=== PATIENT | male | born 1975 | race Caucasian/White ===

== ENCOUNTER 2022-08-01 11:51 | Inpatient (IN) | payer OTHER, SELFPAY ==
--- NOTE | 2022-08-01 | ECG_ITS ---
Test Reason : MED CLEARANCE Blood Pressure : / mmHG Vent. Rate : 063 BPM Atrial Rate : 063 BPM P-R Int : 122 ms QRS Dur : 088 ms QT Int : 498 ms P-R-T Axes : -12 077 078 degrees QTc Int : 509 ms Normal sinus rhythm Nonspecific ST abnormality Prolonged QT Abnormal ECG No previous ECGs available Referred By: Marleny White Electronically Signed By:CEM MENDOZA
--- NOTE | 2022-08-01 11:56 | ED_ITS ---
HPI - Psych General Chief Complaint: Psychiatric Symptoms Stated Complaint: SI Source: patient Mode of arrival: EMS Limitations: no limitations History of Present Illness HPI Narrative: 47 yo male with hx of drug abuse, substance abuse here with c/o SI with plan to overdose. He is from [place] has not been here before. Dosed with his methadone this AM complaint: suicidal ideation, feels depressed and substance abuse Onset (ago): week(s) Duration: getting worse History of same: Yes Relieving factors: none Exacerbating factors: drug use Context: recent alcohol abuse, recent drug abuse and significant life stressor Associated psychiatric symptoms: depression and suicidal ideation Associated symptoms: denies other symptoms Treatments prior to arrival: placed on mental health hold If self harm: admits thoughts of self harm, has plan and has acted on plan Related Data Allergies Allergy/AdvReac Type Severity Reaction Status Date / Time carbamazepine Allergy Unknown Unknown Verified 08/01/22 12:18 hydrocodone Allergy Unknown Unknown Verified 08/01/22 12:18 morphine Allergy Unknown Unknown Verified 08/01/22 12:18 tegretol Allergy Unknown Unknown Uncoded 08/01/22 12:18 Review of Systems Review of Systems: Constitutional : No Fever, No Chills ENT/Mouth : No Ear Pain, No Nasal Congestion, No sore throat Eyes: No Eye Pain, No Swelling, No Redness Cardiovascular : No Chest Pain, No SOB Respiratory : No Cough, No Sputum, No Dyspnea Gastrointestinal : No Nausea, No Vomiting, No Diarrhea, No Hematochezia, No Melena Genitourinary : No Dysuria, No Urinary Frequency, No Hematuria Musculoskeletal : No Myalgias Skin : No Skin Lesions, No rash Neuro : No Weakness, No Numbness, No Paresthesias, No Dizziness, No Headache Psych : positive Anxiety, positive Depression, positive SI no HI Heme/Lymph: No Lymphadenopathy Endocrine : No Polyuria, No Polydipsia All other systems reviewed and are negative [facility] Past Medical History Attestation statement: The following information was validated with the patient. Medical History Active substance abuse Alcohol abuse Social History Social History (Updated 08/01/22 @ 12:37 by Marleny White DO) Alcohol intake: current Alcohol intake frequency: 0-2 drinks per day Patient Tobacco Use Status: Never used Tobacco Use of substances other than those prescribed or required for medical reasons: Yes Substance Use Type: Crack/Cocaine and Heroin Substance Use Frequency: Daily Last Used Substance: Just Prior to Admission Any prior treatment program specific to substance use: Yes Physical Exam Vital Signs: Vital Signs: BMI result Body Mass Index 25.8 Appearance: Alert. Oriented X3. No acute distress. Eyes: Pupils equal, round and reactive to light. ENT: Pharynx normal. on scalp scaled over rash on occiput area and parietal a amtt no signs of cellulitis at this time, appears fungal Neck: Normal inspection. Neck supple. CVS: Normal heart rate and rhythm. Pulses normal. Respiratory: No respiratory distress. Breath sounds normal. Abdomen: Soft and non-tender. Skin: Skin warm and dry. Normal skin color. Normal skin turgor. Extremities: No lower extremity edema. No calf ttp Neuro: Oriented X 3. No motor deficit. No sensory deficit. CN 2-12 intact Course Course Course Narrative: Physician observation started at 330pm. Patient placed in physician observation because the patient needed more time for placement. At the time observation was started the patient's vitals were stable, patient is alert and oriented but slightly agitated, Neuro: nonfocal, CV RRR, Lungs clear MDM - Psych MDM Narrative Medical decision making narrative: 47 yo male with hx of ETOH and substance abuse here on section 12 with SI will obtain labs and BHN consult, nicotine patch, PRN ativan. Clotrimazole for suspected tinea capitis. Lab Data Result diagrams: 08/01/22 14:01 08/01/22 14:01 Labs: Lab Results 08/01/22 08/01/22 08/01/22 Range/Units 12:50 14:01 14:01 WBC 5.3 (4.8-10.8) X10*3/uL RBC 4.17 L (4.60-5.80) X10*6/uL Hgb 13.7 L (14.0-18.0) g/dl Hct 38.7 L (42.0-52.0) % MCV 92.8 (80.0-98.0) fL MCH 32.9 (27.0-33.0) pg MCHC 35.4 (31.0-36.0) g/dl RDW 13.0 (11.0-16.0) % Plt Count 180 (160-400) X10*3/uL MPV Not Reportable Immature Gran % (Auto) Cancelled Neut % (Auto) Cancelled Lymph % (Auto) Cancelled [place] % (Auto) Cancelled Eos % (Auto) Cancelled Baso % (Auto) Cancelled Lymph # (Auto) Cancelled [place] # (Auto) Cancelled Eos # (Auto) Cancelled Baso # (Auto) Cancelled Abs Immat Gran (auto) Cancelled Absolute Neuts (auto) Cancelled Absolute Nucleated RBC 0.000 (0.0-0.012) X10*3/uL Nucleated RBC % (auto) 0.0 (0.0-0.2) /100WBC Neutrophils % (Manual) 70 (45-73) % Band Neutrophils % 1 L (3-5) % Lymphocytes % (Manual) 27 (20-40) % Monocytes % (Manual) 1 L (2-11) % Eosinophils % (Manual) 1 (0-4) % Abs Neuts (Manual) 3.8 (2.0-8.3) X10*3/uL Platelet Estimate NORMAL (NORMAL) Plt Morphology Comment NORMAL RBC Morphology NORMAL Sodium 138 (135-145) mmol/L Potassium 3.9 (3.3-5.1) mmol/L Chloride 98 (96-108) mmol/L Carbon Dioxide 25 (22-29) mmol/L Anion Gap 19 (12-20) BUN 12 (9-16) mg/dL Creatinine 0.78 (0.5-1.4) mg/dL Estim Creat Clear Calc 114.5 Estimated GFR > 60 Random Glucose 135 H (60-115) mg/dL Calcium 9.2 (8.4-10.2) mg/dL Magnesium 1.7 (1.6-2.6) mg/dL Total Bilirubin 1.0 (0.0-1.0) mg/dL Direct Bilirubin 0.4 (0.0-0.5) mg/dL AST 135 H (5-37) U/L ALT 103 H (0-40) U/L Alkaline Phosphatase 87 (39-117) U/L Total Protein 7.4 (6.5-8.0) g/dL Albumin 4.2 (3.5-5.0) g/dL Ethyl Alcohol mg/dL COVID-19 ([facility]) Negative (Negative) COVID-19 Clin Com See Note 08/01/22 Range/Units 14:01 WBC (4.8-10.8) X10*3/uL RBC (4.60-5.80) X10*6/uL Hgb (14.0-18.0) g/dl Hct (42.0-52.0) % MCV (80.0-98.0) fL MCH (27.0-33.0) pg MCHC (31.0-36.0) g/dl RDW (11.0-16.0) % Plt Count (160-400) X10*3/uL MPV Immature Gran % (Auto) Neut % (Auto) Lymph % (Auto) [place] % (Auto) Eos % (Auto) Baso % (Auto) Lymph # (Auto) [place] # (Auto) Eos # (Auto) Baso # (Auto) Abs Immat Gran (auto) Absolute Neuts (auto) Absolute Nucleated RBC (0.0-0.012) X10*3/uL Nucleated RBC % (auto) (0.0-0.2) /100WBC Neutrophils % (Manual) (45-73) % Band Neutrophils % (3-5) % Lymphocytes % (Manual) (20-40) % Monocytes % (Manual) (2-11) % Eosinophils % (Manual) (0-4) % Abs Neuts (Manual) (2.0-8.3) X10*3/uL Platelet Estimate (NORMAL) Plt Morphology Comment RBC Morphology Sodium (135-145) mmol/L Potassium (3.3-5.1) mmol/L Chloride (96-108) mmol/L Carbon Dioxide (22-29) mmol/L Anion Gap (12-20) BUN (9-16) mg/dL Creatinine (0.5-1.4) mg/dL Estim Creat Clear Calc Estimated GFR Random Glucose (60-115) mg/dL Calcium (8.4-10.2) mg/dL Magnesium (1.6-2.6) mg/dL Total Bilirubin (0.0-1.0) mg/dL Direct Bilirubin (0.0-0.5) mg/dL AST (5-37) U/L ALT (0-40) U/L Alkaline Phosphatase (39-117) U/L Total Protein (6.5-8.0) g/dL Albumin (3.5-5.0) g/dL Ethyl Alcohol 24 mg/dL COVID-19 ([facility]) (Negative) COVID-19 Clin Com Discharge Plan Discharge Clinical Impression: Suicidal ideation, Polysubstance abuse, Alcohol abuse, Tinea capitis Patient Disposition: Still a Patient
[2022-08-01 12:18] VITALS: BP 120/60; PULSE 100; O2SAT 98; BMI 25.8
[2022-08-01] MEDS: LORazepam 1 MG TABLET 2 MG PO ×4 (12:31→20:36)
[2022-08-01] MEDS: Thiamine HCL 100 MG TABLET PO (12:31)
[2022-08-01] MEDS: Nicotine 21 MG PATCH.TD24 TRANSDERMA (12:31)
[2022-08-01 13:15] LABS: COVID-19 Test Negative (Negative); IDNOW Serial# 9DB6401D
[2022-08-01 14:10] LABS: Hematocrit 38.7 % (42.0-52.0); Hemoglobin 13.7 g/dl (14.0-18.0); Mean Corpuscular HGB Conc 35.4 g/dl (31.0-36.0); Mean Corpuscular Hemoglobin 32.9 pg (27.0-33.0); Mean Corpuscular Volume 92.8 fL (80.0-98.0); PLT CLUMP 1; Red Blood Count 4.17 X10*6/uL (4.60-5.80)
[2022-08-01 14:35] LABS: Ethanol 24 mg/dL
[2022-08-01 14:40] LABS: Alanine Aminotransferase 103 U/L (0-40); Albumin Level 4.2 g/dL (3.5-5.0); Alkaline Phosphatase 87 U/L (39-117); Anion Gap 19 (12-20); Aspartate Amino Transferase 135 U/L (5-37); Bilirubin Direct 0.4 mg/dL (0.0-0.5); Blood Urea Nitrogen 12 mg/dL (9-16); Calcium 9.2 mg/dL (8.4-10.2); Carbon Dioxide 25 mmol/L (22-29); Chloride 98 mmol/L (96-108); Creatinine Clr Calc Pharmacy 114.5; Estimated Glomerular Filt Rate > 60; Glucose Random 135 mg/dL (60-115); Magnesium 1.7 mg/dL (1.6-2.6); Potassium 3.9 mmol/L (3.3-5.1); Sodium 138 mmol/L (135-145); Total Protein 7.4 g/dL (6.5-8.0)
[2022-08-01 14:57] LABS: Band Neutrophils Percent 1 % (3-5); Eosinophils Percent Manual 1 % (0-4); Lymphocytes Percent Manual 27 % (20-40); Monocytes Percent Manual 1 % (2-11); Neutrophils Percent Manual 70 % (45-73)
[2022-08-01 14:59] LABS: Platelet Count 180 X10*3/uL (160-400); White Blood Count 5.3 X10*3/uL (4.8-10.8)
[2022-08-01 15:02] LABS: Platelet Estimate NORMAL (NORMAL); Platelet Morphology Comment NORMAL; RBC Morphology NORMAL
[2022-08-01 15:10] LABS: Neutrophils Absolute Manual 3.8 X10*3/uL (2.0-8.3)
--- OUTSIDE RECORDS SUMMARY | 2022-08-01 16:10 | XMS_ITS | Continuity of Care Document ---
:1975 Author Organization [facility] Address [address] [place] [address]- Care Team Providers Name Role Phone Not on Staff, PCP Primary Care Physician Unavailable Encounter [facility] Date(s): 11/10/21 - 11/14/21 [facility] [address], [place] [address] Discharge Disposition: A-D/C Home Attending Physician: Nash Torres MD Admitting Physician: Tika Corley MD Referring Physician: Tika Corley MD Allergies, Adverse Reactions, Alerts Substance Reaction Severity Status morphine Active Vicodin Active TEGretol Active Immunizations Given and Recorded Vaccine Date Status Refusal Reason tetanus/diphtheria/pertussis, acel(Tdap) 12/28/18 Given Not Given Vaccine Date Status Refusal Reason influenza virus vaccine, inactivated 11/02/21 Not Given Permanently Refused influenza virus vaccine, inactivated 07/16/18 Not Given Patient Refuses pneumococcal 23-valent vaccine 07/16/18 Not Given P atient Refuses Medications folic acid 1 mg oral tablet 1 mg, 1, tablet, By Mouth, Daily, # 30 tablet, Refills 0, Tot. Refills 0, Maintenance, 11/14/21 12:03:00 EST, Route to Pharmacy Electronically, [facility], Partial fill upon patient request if the prescription is for a schedule II opioid... Start Date: 11/14/21 Stop Date: 12/14/21 Status: Orderedgabapentin 300 mg oral capsule 300 mg, Capsule, By Mouth, 11/14/21 9:00:00 EST Start Date: 11/14/21 Stop Date: 11/14/21 Status: Completedgabapentin 300 mg oral capsule 300 mg, 1, capsule, By Mouth, 3 times a day, # 90 capsule, Refills 0, Tot. Refills 0, Maintenance, 11/14/21 11:53:00 EST, Route to Pharmacy Electronically, [facility], Partial fill upon patient request if the prescription is for a schedu... Start Date: 11/14/21 Stop Date: 12/14/21 Status: Orderedibuprofen 400 mg oral tablet 400 mg, 1, tablet, By Mouth, 3 times a day, PRN, Refills 0, Maintenance, Pain , Mild, 11/10/21 8:59:00 EST, Partial fill upon patient request if the prescription is for a schedule II opioid drug. Start Date: 11/10/21 Status: OrderedMagic Mouth Wash 15 mL, Swish and Spit, 3 times a day, 0 Refills, Maintenance, 11/10/21 8:59:00 EST, Suspension, Partial fill upon patient request if the prescription is for a schedule II opioid drug. Start Date: 11/10/21 Status: Orderedmethadone 10 mg oral tablet 170 mg, Tablet, By Mouth, 11/14/21 9:00:00 EST Start Date: 11/14/21 Stop Date: 11/14/21 Status: Completedmethadone 10 mg/5 mL oral solution 85 mL = 170 mg, By Mouth, Daily, 0 Refills, Maintenance, 07/15/20 9:02:00 EDT, Solution, Partial fill upon patient request Start Date: 07/15/20 Status: OrderedMiraLax Powder 1 pack/packet = 17 Gm, By Mouth, Daily, PRN Constipation, 0 Refills, Maintenance, 11/08/21 11:25:00 EST, Powder, Partial fill upon patient request if the prescription is for a schedule II opioid drug. Start Date: 11/08/21 Status: OrderedMultivit Therapeutic/Minerals Tablet 1 tablet, By Mouth, Daily, 0 Refills, Maintenance, 11/08/21 11:25:00 EST, Tablet, Partial fill upon patient request if the prescription is for a schedule II opioid drug. Start Date: 11/08/21 Status: OrderedNicotine = 21 mg, Topically, Every 24 hours, 0 Refills, Maintenance, 11/10/21 8:59:00 EST, Patch, Partial fill upon patient request if the prescription is for a schedule II opioid drug. Start Date: 11/10/21 Status: OrderedOrajel 10% Gel 1, applicator, Topically, Every 4 hours, PRN, Refills 0, Maintenance, Pain , Mild, 11/08/21 11:24:00EST, Gel, Partial fill upon patient request if the prescription is for a schedule II opioid drug. Start Date: 11/08/21 Status: OrderedProtonix 40 mg oral delayed release tablet = 40 mg, By Mouth, Daily, 0 Refills, Maintenance, 11/08/21 11:24:00 EST, EC Tablet Start Date: 11/08/21 Status: OrderedPyridoxine Tablet 50 mg, By Mouth, Daily, Refills 0, Maintenance, 11/08/21 11:25:00 EST, Partial fill upon patient request if the prescription is for a schedule II opioid drug. Start Date: 11/08/21 Status: OrderedQUEtiapine 100 mg oral tablet 100 mg, 1, tablet, By Mouth, Daily at bedtime, PRN, # 30 tablet, Refills 0, Tot. Refills 0, Maintenance, Anxiety, 11/14/21 11:53:00 EST, Route to Pharmacy Electronically, [facility], Partial fill upon patient request if the prescription... Start Date: 11/14/21 Stop Date: 12/14/21 Status: Orderedsertraline 100 mg oral tablet 1 tablet = 100 mg, By Mouth, Daily, # 30 tablet, 0 Refills, Maintenance, 11/14/21 11:52:00 EST, Tablet, [facility], Partial fill upon patient request if the prescription is for a scheduleII opioid drug., 179, cm, 11/10/21 6:40:00 EST, H... Start Date: 11/14/21 Stop Date: 12/14/21 Status: Orderedthiamine 100 mg oral tablet 100 mg, 1, tablet, By Mouth, Daily, for 30 days, # 30 tablet, Refills 0, Tot. Refills 0, Acute 12/14/21 12:03:00 EST, 11/14/21 12:03:00 EST, Route to Pharmacy Electronically, [facility], Partial fill upon patient request if the prescript... Start Date: 11/14/21 Stop Date: 12/14/21 Status: Ordered Problem List Condition Effective Dates Status Health Status Informant Alcohol abuse(Confirmed) Active Coagulopathy(Confirmed) Active Cerebral edema(Confirmed) Active Transaminitis(Confirmed) Active GI bleed(Confirmed) Active Hepatic encephalopathy(Confirmed) Active Hypertension(Confirmed) Active OSVALDO (acute kidney injury)(Confirmed) Active Opiate abuse, continuous(Confirmed) Active Pneumonia(Confirmed) Active Results Radiology Reports Exam Date Time Procedure Performing Provider Status 11/11/21 10:03 AM Chest Portable Erika Hanley; Auth (Verified) Notes:(Chest Portable) Reason For Exam: CoughRESULT: Chest Portable Chest Portable Reason: Cough; Clinical Question(s): Pneumonia COMPARISON: 11/04/2021 FINDINGS: LINES AND TUBES: None. LUNGS AND PLEURA: Clear lungs. Normal pulmonary vascularity. No pleural effusion. No pneumothorax. HEART, MEDIASTINUM AND SHAVON: Heart is normal in size. Normal upper mediastinal and hilar contour. BONES AND SOFT TISSUES: No acute abnormality. IMPRESSION: No acute abnormality. WSN: [id number] Ordering Physician: Nash Torres Dictated By: Debbi Cooper MD, I Dictated Date/Time: 11/11/21 1:57 pm Reviewed By: Debbi Cooper MD, I Signed By: Debbi Cooper MD, I Signed Date/Time: 11/11/21 1:57 pm Transcribed By: ANDREAS Transcribed Date/Time: 11/11/21 1:57 pm Vital Signs Most recent to oldest 1 2 3 [Reference Range]: Oxygen Saturation [94-100 %] 98 % 97 % 96 % (11/14/21 8:00 AM) (11/13/21 12:00 PM) (11/12/21 8: 14 PM) Pulse Rate [55-90 bpm] 56 bpm 55 bpm 55 bpm (11/14/21 8:00 AM) (11/13/21 12:00 PM) (11/12/21 8: 14 PM) Blood Pressure [90-138/55-84 177/69 mm Hg 127/84 mm Hg 138 /80 mm Hg mm Hg] *H* (11/13/21 12:00 PM) (11/12/21 8:14 PM) (11/14/21 8:00 AM) Respiratory Rate [16-30 1 br/min 1 br/min 18 br/mi n br/min] *L* *L* (11/14/21 9:22 AM ) (11/14/21 10:22 AM) (11/14/21 10:20 AM) Temperature [96.8-100.4 DegF] 97.4 DegF 97.5 DegF 97 .5 DegF (11/14/21 8:00 AM) (11/13/21 12:00 PM) (11/12/21 8: 14 PM) Mode of Delivery (Oxygen) Room air Room air Room a ir (11/14/21 8:00 AM) (11/13/21 12:00 PM) (11/12/21 8: 14 PM) Blood pressure sites Arm, right Arm, right Arm, right (11/14/21 8:00 AM) (11/13/21 12:00 PM) (11/12/21 8: 14 PM) Temperature Route Oral Oral Oral (11/14/21 8:00 AM) (11/13/21 12:00 PM) (11/12/21 8: 14 PM) Social History Social History Type Response Tobacco Use: 4 or less cigarettes(le ss than 1/4 pack)/day in last 30 days. Interested in cessatio n: No. Yes Sex
--- OUTSIDE RECORDS SUMMARY | 2022-08-01 16:10 | XMS_ITS | Continuity of Care Document ---
:1975 Author Organization [facility] Address [address] [place] [address]- Care Team Providers Name Role Phone Not on Staff, PCP Primary Care Physician Unavailable Encounter [facility] Date(s): 06/12/22 - 06/12/22 [facility] [address] [place] [phone] Encounter Diagnosis Gonorrhea (Final) - 06/12/22 Discharge Disposition: A-D/C Home Attending Physician: Junie Pimentel MD Admitting Physician: Junie Pimentel MD Referring Physician: Not on Staff, Referring MD Allergies, Adverse Reactions, Alerts Substance Reaction [...] 11/14/21 12:03:00 EST, Route to Pharmacy Electronically, [facility], Partial fill upon patient request if the prescription is for a schedule II opioid... Start Date: 11/14/21 Stop Date: 12/14/21 Status: Orderedgabapentin 300 mg oral capsule 300 mg, 1, capsule, By Mouth, 3 times a day, # 90 capsule, Refills 0, Tot. Refills 0, Maintenance, 11/14/21 11:53:00 EST, Route to Pharmacy Electronically, [facility], Partial fill upon patient request [...] drug. Start Date: 11/10/21 Status: Orderedmethadone 10 mg/5 mL oral solution 85 mL [...] 11/14/21 11:53:00 EST, Route to Pharmacy Electronically, [facility], Partial fill upon patient request if the prescription... Start Date: 11/14/21 Stop Date: 12/14/21 Status: Orderedsertraline 100 mg oral tablet 1 tablet = 100 mg, By Mouth, Daily, # 30 tablet, 0 Refills, Maintenance, 11/14/21 11:52:00 EST, Tablet, [facility], Partial fill upon patient request [...] Active Opiate abuse, continuous(Confirmed) Active Pneumonia(Confirmed) Active Vital Signs Most recent to oldest [Reference Range]: 1 2 Height 178 cm (06/12/22 10:25 AM) Weight 78 kg (06/12/22 10:25 AM) Oxygen Saturation [94-100 %] 100 % 100 % (06/12/22 10:18 AM) (06/12/22 10:07 AM) Pulse Rate [55-90 bpm] 61 bpm 66 bpm (06/12/22 10:18 AM) (06/12/22 10:07 AM) Blood Pressure [90-138/55-84 mm Hg] 133/92 mm Hg (06/12/22 10:18 AM) Respiratory Rate [16-30 br/min] 16 br/min (06/12/22 10:18 AM) Temperature [96.8-100.4 DegF] 98.3 DegF (06/12/22 10:18 AM) Mode of Delivery (Oxygen) Room air Room air (06/12/22 10:18 AM) (06/12/22 10:07 AM) Blood pressure sites Arm, right (06/12/22 10:18 AM) Temperature Route Oral (06/12/22 10:18 AM) Dry Weight 78 kg (06/12/22 10:25 AM) Weight Obtained Via Patient/family stated (06/12/22 10:25 AM) Dry Weight Obtained Via Patient/family stated (06/12/22 10:25 AM) Social History Social History Type Response Tobacco Use: 4 or less cigarettes(le ss than 1/4 pack)/day in last 30 days. Interested in cessatio n: No. Yes Sex
--- OUTSIDE RECORDS SUMMARY | 2022-08-01 16:10 | XMS_ITS | Continuity of Care Document ---
:1975 Author Organization [facility] Address [address] [place] [address]- Care Team Providers Name Role Phone Rin Leal MD Primary Care Physician Encounter [facility] NBR [id number] Date(s): 05/31/21 - 06/05/21 [facility] [address] [place] [id number]- Encounter Diagnosis Ankle cellulitis (Final) - 05/31/21 Discharge Disposition: A-D/C Home Attending Physician: Jeanette Whitman MD Admitting Physician: Ulysses Savage MD Referring Physician: Not on Staff, Referring MD Allergies, Adverse Reactions, Alerts Substance Reaction Severity Status morphine Active Vicodin Active TEGretol Active Immunizations Given and Recorded Vaccine Date Status Refusal Reason tetanus/diphtheria/pertussis, acel(Tdap) 12/28/18 Given Not Given Vaccine Date Status Refusal Reason pneumococcal 23-valent vaccine 07/16/18 Not Given P atient Refuses influenza virus vaccine, inactivated 07/16/18 Not Given Patient Refuses Medications Augmentin 875 mg-125 mg oral tablet 1 tablet, By Mouth, Every 12 hours, for 5 days, # 10 tablet, 0 Refills, Acute 06/10/21 9:18:00 EDT, 06/05/21 9:18:00 EDT, Tablet, [facility], Partial fill upon patient request if the prescription is for a schedule II opioid drug., 178, c... Start Date: 06/05/21 Stop Date: 06/10/21 Status: OrderedBactrim DS 800 mg-160 mg oral tablet 1 tablet, By Mouth, Every 12 hours, for 5 days, # 10 tablet, 0 Refills, Acute 06/10/21 9:12:00 EDT, 06/05/21 9:12:00 EDT, Tablet, [facility], Partial fill upon patient request if the prescription is for a schedule II opioid drug., 1 tabl... Start Date: 06/05/21 Stop Date: 06/10/21 Status: OrderedDilaudid 2 mg oral tablet 1 tablet = 2 mg, By Mouth, Every 4 hours, PRN Pain , Severe, # 12 tablet, 0 Refills, Acute 06/06/21 9:09:00 EDT, 06/05/21 9:09:00 EDT, Tablet, [facility], Partial fill upon patient request if the prescription is for a schedule II opioid... Start Date: 06/05/21 Stop Date: 06/06/21 Status: OrderedDilaudid Inj 1 mg, Injection, IV Push Slowly, Every 4 hours, PRN for Pain , Severe, Routine, 05/31/21 21:16:00 EDT Start Date: 05/31/21 Stop Date: 06/05/21 Status: Discontinuedfolic acid 1 mg oral tablet 1 mg, 1, tablet, By Mouth, Daily, # 30 tablet, Refills 0, Tot. Refills 0, Maintenance, 06/05/21 9:08:00 EDT, Route to Pharmacy Electronically, [facility], 178, cm, 06/05/21 4:34:00 EDT, Height, 79, kg, 05/31/21 23:33:00 EDT, Dry Weight Start Date: 06/05/21 Status: Orderedmethadone 10 mg oral tablet 170 mg, Tablet, By Mouth, dose confirmed with [facility] , last dose 05/31, 06/05/21 9:00:00 EDT Start Date: 06/05/21 Stop Date: 06/05/21 Status: Completedmethadone 10 mg/5 mL oral solution 85 mL = 170 mg, By Mouth, Daily, 0 Refills, Maintenance, 07/15/20 9:02:00 EDT, Solution, Partial fill upon patient request Start Date: 07/15/20 Status: Orderedprazosin 1 mg oral capsule 1 mg, 1, capsule, By Mouth, Daily at bedtime, # 30 capsule, Refills 0, Tot. Refills 0, Maintenance, 06/05/21 9:24:00 EDT, Route to Pharmacy Electronically, [facility], Partial fill upon patient request if the prescription is for a schedu... Start Date: 06/05/21 Status: OrderedProtonix 40 mg oral delayed release tablet = 40 mg, By Mouth, 2 times a day, # 60 capsule, 0 Refills, Maintenance, 07/15/20 9:02:00 EDT, EC Tablet, 177.8, cm, 07/15/20 7:45:00 EDT, Height, 75, kg, 07/05/20 9:09:00 EDT, Dry Weight Start Date: 07/15/20 Status: Orderedpyridoxine 50 mg oral tablet 50 mg, 1, tablet, By Mouth, Daily, # 30 tablet, Refills 0, Tot. Refills 0, Acute 06/06/21 9:09:00 EDT, 06/05/21 9:09:00 EDT, Route to Pharmacy Electronically, [facility], Partial fill upon patient request if the prescription is for a rui... Start Date: 06/05/21 Stop Date: 06/06/21 Status: Orderedthiamine 100 mg oral tablet 100 mg, 1, tablet, By Mouth, Daily, # 30 tablet, Refills 0, Tot. Refills 0, Acute 06/06/21 9:09:00 EDT, 06/05/21 9:09:00 EDT, Route to Pharmacy Electronically, [facility], Partial fill upon patient request if the prescription is for a sc... Start Date: 06/05/21 Stop Date: 06/06/21 Status: OrderedZoloft 50 mg oral tablet 1 tablet = 50 mg, By Mouth, Daily, # 30 tablet, 0 Refills, Maintenance, 06/05/21 9:24:00 EDT, Tablet, [facility], Partial fill upon patient request if the prescription is for a schedule II opioid drug., 178, cm, 06/05/21 4:34:00 EDT, Hei... Start Date: 06/05/21 Status: Ordered Problem List Condition Effective Dates Status Health Status Informant Alcohol abuse(Confirmed) Active Coagulopathy(Confirmed) Active Cerebral edema(Confirmed) Active Transaminitis(Confirmed) Active GI bleed(Confirmed) Active Hepatic encephalopathy(Confirmed) Active Hypertension(Confirmed) Active OSVALDO (acute kidney injury)(Confirmed) Active Opiate abuse, continuous(Confirmed) Active Pneumonia(Confirmed) Active Results Orders for Microbiology Reports Name Date Blood Culture 05/31/21 Blood Culture #2 05/31/21 Microbiology Reports TEST:Blood Culture STATUS:Auth (Verified) BODY SITE: SOURCE:Blood COLLECTED DATE/TIME:05/31/21 9:30 PMBlood Culture SPECIMEN DESCRIPTION : BLOOD NO SITE SPECIAL REQUESTS : NONE CULTURE : NO GROWTH 5 DAYS. REPORT STATUS : FINAL 06/05/2021TEST:Blood Culture, Second Order STATUS:Auth (Verified) BODY SITE: SOURCE:Blood COLLECTED DATE/TIME:05/31/21 9:29 PMBlood Culture, Second Order SPECIMEN DESCRIPTION : BLOOD NO SITE SPECIAL REQUESTS : NONE CULTURE : NO GROWTH 5 DAYS. REPORT STATUS : FINAL 06/05/2021adiology Reports Exam Date Time Procedure Performing Provider Status 05/31/21 10:23 PM Foot Min 3 Views Left Ashley Juárez; Auth ( Verified) Notes:(Foot Min 3 Views Left) Reason For Exam: InfectionRESULT: Foot Min 3 Views Left Foot Min 3 Views Left, 3 views Hx of Present Illness: pt c o L foot ankle swelling, reddness, pain x approx 5 days. NKI. denies IVDU at foot. +chills, nausea.; Reason: Infection; Clinical Question(s): Osteomyelitis COMPARISON: None. FINDINGS: No fractures or bone lesions. No osseous erosions to indicate osteomyelitis. No arthritic changes. Normal soft tissues. IMPRESSION: No acute fracture or malalignment. No osseous erosions to indicate osteomyelitis. WSN: [id number] Ordering Physician: Sybil Coreas Dictated By: Jose Roberto Finch MD Dictated Date/Time: 05/31/21 10:45 p Reviewed By: Jose Roberto Finch MD Signed By: Jose Roberto Finch MD Signed Date/Time: 05/31/21 10:45 pm Transcribed By: ANDREAS Transcribed Date/Time: 05/31/21 10:42 pm Vital Signs Most recent to oldest [Reference 1 2 3 Range]: Height 178 cm 178 cm 178 cm (06/05/21 4:34 AM) (06/04/21 8:05 PM) (06/04/21 1:34 P M) Weight 79 kg (05/31/21 11:33 PM) Oxygen Saturation [94-100 %] 97 % 98 % 98 % (06/05/21 4:34 AM) (06/04/21 8:05 PM) (06/04/21 1:34 P M) Pulse Rate [55-90 bpm] 54 bpm 55 bpm 61 bpm *L* (06/04/21 8:05 PM) (06/04/21 1:34 PM ) (06/05/21 4:34 AM) Body Mass Index [18.5-24.99] 24.93 (05/31/21 11:33 PM) Blood Pressure [90-138/55-84 mm 156/73 mm Hg 156/96 mm Hg 157/96 mm Hg Hg] *H* *H* *H* (06/05/21 4:34 AM) (06/04/21 8:05 PM) (06/04/21 1:34 P M) Respiratory Rate [16-30 br/min] 18 br/min 18 br/min 18 br/min (06/05/21 10:37 AM) (06/05/21 10:37 AM) (06/05/21 8:05 AM) Temperature [96.8-100.4 DegF] 98.2 DegF 98.6 DegF 98 .9 DegF (06/05/21 4:34 AM) (06/04/21 8:05 PM) (06/04/21 1:34 P M) Mode of Delivery (Oxygen) Room air Room air Room a ir (06/05/21 4:34 AM) (06/04/21 8:05 PM) (06/04/21 1:34 P M) Blood pressure sites Arm, right Arm, right Arm, right (06/05/21 4:34 AM) (06/04/21 8:05 PM) (06/04/21 1:34 P M) Temperature Route Oral Oral Oral (06/05/21 4:34 AM) (06/04/21 8:05 PM) (06/04/21 1:34 P M) Dry Weight 79 kg (05/31/21 11:33 PM) Weight Obtained Via Bed scale (05/31/21 11:33 PM) Dry Weight Obtained Via Bed scale (05/31/21 11:33 PM) Social History Social History Type Response Tobacco Use: 4 or less cigarettes(le ss than 1/4 pack)/day in last 30 days. Interested in cessatio n: No. Yes Sex
--- OUTSIDE RECORDS SUMMARY | 2022-08-01 16:10 | XMS_ITS | Continuity of Care Document ---
:1975 Author Organization [facility] Address [address] [place] [address]- Care Team Providers Name Role Phone Not on Staff, PCP Primary Care Physician Unavailable Encounter [facility] Date(s): 07/05/20 - 07/15/[address] [address]- [facility] Discharge Disposition: A-D/C Home Attending Physician: Jeanette Whitman MD Admitting Physician: Leslye Washington MD Referring Physician: Not on Staff, Referring MD Allergies, Adverse Reactions, Alerts Substance Reaction Severity Status morphine Active Vicodin Active TEGretol Active Immunizations Given and Recorded Vaccine Date Status Refusal Reason tetanus/diphtheria/pertussis, acel(Tdap) 12/28/18 Given Not Given Vaccine Date Status Refusal Reason influenza virus vaccine, inactivated 07/16/18 Not Given Patient Refuses pneumococcal 23-valent vaccine 07/16/18 Not Given P atient Refuses Medications folic acid 1 mg oral tablet 1 mg, 1, tablet, By Mouth, Daily, # 30 tablet, Refills 0, Tot. Refills 0, Maintenance, 07/15/20 9:02:00 EDT, Route to Pharmacy Electronically, [facility], 177.8, cm, 07/15/20 7:45:00 EDT,Height, 75, kg, 07/05/20 9:09:00 EDT, Dry Weight Start Date: 07/15/20 Status: Orderedlactulose 10 gm/15 ml oral syrup 45 mL = 30 Gm, By Mouth, Every 6 hours, for 14 days, # 2,520 mL, 0 Refills, Acute 07/29/20 9:02:00 EDT, 07/15/20 9:02:00 EDT, Syrup, [facility], 45 mL By Mouth Every 6 hours,x14 days, 177.8, cm, 07/15/20 7:45:00 EDT, Height, 75, kg, ... Start Date: 07/15/20 Stop Date: 07/29/20 Status: Orderedmethadone 10 mg/5 mL oral solution 72.5 mL = 145 mg, By Mouth, Daily, 0 Refills, Maintenance, 07/15/20 9:02:00 EDT, Solution, Partial fill upon patient request Start Date: 07/15/20 Status: Orderedmultivitamin Multiple Vitamins oral tablet, chewable 1 tablet, By Mouth, Daily, # 30 tablet, 0 Refills, Maintenance, 07/14/19 11:31:15 EDT, Chew Tablet, 1 tablet By Mouth Daily,x30 days Start Date: 07/14/19 Stop Date: 08/13/19 Status: OrderedNarcan 4 mg/0.1 mL nasal spray = 4 mg, Nares, Both, Once, may repeat every 2 to 3 minutes until patient responds PRN overdose, # 2 each, 0 Refills, Soft Stop, 03/01/20 5:30:00 EDT, [facility], 178, cm, 07/13/19 21:13:00 EDT, Height, 80.6, kg, 08/31/19 4:34:00 Dr.. TALIB. Start Date: 03/01/20 Status: OrderedProtonix 40 mg oral delayed release tablet = 40 mg, By Mouth, 2 times a day, # 60 capsule, 0 Refills, Maintenance, 07/15/20 9:02:00 EDT, EC Tablet, 177.8, cm, 07/15/20 7:45:00 EDT, Height, 75, kg, 07/05/20 9:09:00 EDT, Dry Weight Start Date: 07/15/20 Status: Orderedthiamine 100 mg oral tablet 100 mg, 1, tablet, By Mouth, Daily, # 30 tablet, Refills 0, Tot. Refills 0, Acute 07/16/20 9:04:00 EDT, 07/15/20 9:02:00 EDT, Route to Pharmacy Electronically, [facility], 177.8, cm, 07/15/20 7:45:00 EDT, Height, 75, kg, 07/05/20 9:09:00... Start Date: 07/15/20 Stop Date: 07/16/20 Status: OrderedZofran 4 mg oral tablet 1 tablet = 4 mg, By Mouth, Every 8 hours, PRN Nausea & Vomiting, # 10 tablet, 0 Refills, Maintenance, 07/15/20 11:01:00 EDT, Tablet, [facility], 177.8, cm, 07/15/20 7:45:00 EDT, Height, 75, kg, 07/05/20 9:09:00 EDT, Dry Weight Start Date: 07/15/20 Status: Ordered Problem List Condition Effective Dates Status Health Status Informant Alcohol abuse(Confirmed) Active Coagulopathy(Confirmed) Active Cerebral edema(Confirmed) Active Transaminitis(Confirmed) Active GI bleed(Confirmed) Active Hepatic encephalopathy(Confirmed) Active Hypertension(Confirmed) Active OSVALDO (acute kidney injury)(Confirmed) Active Opiate abuse, continuous(Confirmed) Active Pneumonia(Confirmed) Active Results Orders for Microbiology Reports Name Date Sputum Culture w/ Gram Smear 07/07/20 Blood Culture 07/05/20 Blood Culture #2 07/05/20 Microbiology Reports TEST:Sputum Culture STATUS:Auth (Verified) BODY SITE: SOURCE:ENDOTR COLLECTED DATE/TIME:07/07/20 10:30 AMSputum Culture SPECIMEN DESCRIPTION : ENDOTRACHEAL ASPIRATE SPECIAL REQUESTS : NONE GRAM STAIN : 2+ POLYMORPHONUCLEAR LEUKOCYTES 1+ GRAM POSITIVE COCCI 1+ GRAM NEGATIVE RODS CULTURE : 2+ STAPHYLOCOCCUS AUREUS. 2+ KLEBSIELLA PNEUMONIAE REPORT STATUS : FINAL 07/10/2020 ORGANISM 2+ STAPHYLOCOCCUS AUREUS. METHOD MIN. INHIB. CONC. (MCG/ML) CIPROFLOXACIN SUSCEPTIBLE CLINDAMYCIN SUSCEPTIBLE ERYTHROMYCIN SUSCEPTIBLE LEVOFLOXACIN SUSCEPTIBLE OXACILLIN SUSCEPTIBLE PENICILLIN RESISTANT RIFAMPIN SUSCEPTIBLE RIFAMPIN RIFAMPIN SHOULD NOT BE USED ALONE FOR ANTIMICROBIAL RIFAMPIN THERAPY. TETRACYCLINE SUSCEPTIBLE TRIMETH/SULFAMETHOX SUSCEPTIBLE VANCOMYCIN SUSCEPTIBLE ORGANISM 2+ KLEBSIELLA PNEUMONIAE METHOD MIN. INHIB. CONC. (MCG/ML) AMPICILLIN RESISTANT AMPICILLIN/SULBACTAM SUSCEPTIBLE AMOXICILLIN/CLAVULAN SUSCEPTIBLE CEFAZOLIN SUSCEPTIBLE CEFEPIME SUSCEPTIBLE CEFTRIAXONE SUSCEPTIBLE CIPROFLOXACIN SUSCEPTIBLE ERTAPENEM SUSCEPTIBLE GENTAMICIN SUSCEPTIBLE LEVOFLOXACIN SUSCEPTIBLE MEROPENEM SUSCEPTIBLE PIPERACILLIN/TAZOBAC SUSCEPTIBLE TRIMETH/SULFAMETHOX SUSCEPTIBLE TETRACYCLINE INTERMEDIATETEST:Blood Culture, Second Order STATUS:Auth (Verified) BODY SITE: SOURCE:Blood COLLECTED DATE/TIME:07/05/20 7:57 PMBlood Culture, Second Order SPECIMEN DESCRIPTION : BLOOD NO SITE SPECIAL REQUESTS : NONE CULTURE : NO GROWTH 5 DAYS. REPORT STATUS : FINAL 07/10/2020TEST:Blood Culture STATUS:Auth (Verified) BODY SITE: SOURCE:Blood COLLECTED DATE/TIME:07/05/20 7:48 PMBlood Culture SPECIMEN DESCRIPTION : BLOOD NO SITE SPECIAL REQUESTS : NONE CULTURE : NO GROWTH 5 DAYS. REPORT STATUS : FINAL 07/10/2020Radiology Reports Exam Date Time Procedure Performing Provider Status 07/10/20 7:18 PM Chest Portable Dimitrisandres Catalina; Auth (Verified ) Notes:(Chest Portable) Reason For Exam: Tube PlacementRESULT: Chest Portable Chest Portable Reason: Tube Placement; Clinical Question(s): Tube Placement COMPARISON: 07/10/2020 at 10:12 AM FINDINGS: LINES AND TUBES: Endotracheal tube is not visualized. Enteric tube terminates in the left upper quadrant, likely in the stomach. The sidehole is at the level of the GE junction. LUNGS AND PLEURA: Clear lungs. Normal pulmonary vascularity. No pleural effusion. Lung apices were not imaged. No large pneumothorax. HEART, MEDIASTINUM AND SHAVON: Heart is normal in size. Normal mediastinal and hilar contour. BONES AND SOFT TISSUES: No acute abnormality. Healed right fourth and fifth rib fractures. IMPRESSION: 1. No acute abnormality. 2. Enteric tube should be advanced by 3 to 4 cm for proper positioning. A [place] message has been communicated via the [employer] system on 07/10/2020 7:31 PM, Message ID [id number]. WSN: [id number] Ordering Physician: Kory Vernon Dictated By: Mara Javed MD Dictated Date/Time: 07/10/20 7:31 pm Reviewed By: Mara Javed MD Signed By: Mara Javed MD Signed Date/Time: 07/10/20 7:31 pm Transcribed By: ANDREAS Transcribed Date/Time: 07/10/20 7:29 pm Exam Date Time Procedure Performing Provider Status 07/10/20 10:19 AM Chest Portable Reinier Kulkarni; Auth (Verified) Notes:(Chest Portable) Reason For Exam: Shortness of BreathRESULT: Chest Portable Chest Portable Reason: Shortness of Breath; Clinical Question(s): Pneumonia COMPARISON: 07/10/2020 chest radiograph. FINDINGS: LINES AND TUBES: Endotracheal tube is 4 cm above the gerard. Temperature probe within the midesophagus. Enteric tube courses outside the [id number]-gv-iynv of this study. LUNGS AND PLEURA: Clear lungs. Normal pulmonary vascularity. No pleural effusion. No pneumothorax. HEART, MEDIASTINUM AND SHAVON: Heart is normal in size. Normal mediastinal and hilar contour. BONES AND SOFT TISSUES: No acute abnormality. IMPRESSION: 1. No acute cardiopulmonary process. 2. Endotracheal tube in good position approximately 4 cm above the gerard. Enteric tube terminates outside the [id number]-hm-rbva of this study. WSN: [id number] Ordering Physician: Sebastian Samayoa Dictated By: Jose Roberto Finch MD Dictated Date/Time: 07/10/20 10:51 a Reviewed By: Jose Roberto Finch MD Signed By: Jose Roberto Finch MD Signed Date/Time: 07/10/20 10:51 am Transcribed By: ANDREAS Transcribed Date/Time: 07/10/20 10:49 am Exam Date Time Procedure Performing Provider Status 07/10/20 12:32 AM Chest Portable Gracie Canchola; Sapna (Verified ) Notes:(Chest Portable) Reason For Exam: OG tube;Line PlacementRESULT: Chest Portable Chest Portable Reason: Line Placement; OG tube; Clinical Question(s): Line Placement COMPARISON: 07/06/2020 chest radiograph. FINDINGS: LINES AND TUBES: Enteric tube terminates within the stomach. Temperature probe within the mid esophagus. Endotrachealtube terminates within the trachea approximately 3 cm above the gerard. LUNGS AND PLEURA: Clear lungs. Previously seen right lower lobe opacity is resolved Normal pulmonary vascularity. No pleural effusion. No pneumothorax. HEART, MEDIASTINUM AND SHAVON: Heart is normal in size. Normal mediastinal and hilar contour. BONES AND SOFT TISSUES: No acute abnormality. IMPRESSION: 1. Enteric tube terminates within the stomach. 2. Endotracheal tube in appropriate position. 3. Lungs are clear. Resolution of previously seen right lower lobe opacity. WSN: [id number] Ordering Physician: Minoo Lyons Dictated By: Jose Roberto Finch MD Dictated Date/Time: 07/10/20 8:09 am Reviewed By: Jose Roberto Finch MD Signed By: Jose Roberto Finch MD Signed Date/Time: 07/10/20 8:09 am Transcribed By: ANDREAS Transcribed Date/Time: 07/10/20 8:08 am Exam Date Time Procedure Performing Provider Status 07/06/20 10:03 PM Chest Portable Earnest Latif (Verified ) Notes:(Chest Portable) Reason For Exam: Tube PlacementRESULT: Chest Portable Chest Portable Reason: Tube Placement; Clinical Question(s): Tube Placement COMPARISON: X-ray 07/05/2020. FINDINGS: LINES AND TUBES: NG tube distal tip and side-port in stomach. Endotracheal tube approximately 5 cm from the gerard. LUNGS AND PLEURA: There is new airspace opacity in the lower medial right lung, most consistent with pneumonia though atelectasis is also a consideration. No pleural effusion. No pneumothorax. HEART, MEDIASTINUM AND SHAVON: Heart is normal in size. Normal mediastinal and hilar contour. BONES AND SOFT TISSUES: No acute abnormality. IMPRESSION: New airspace opacity in right lower lobe concerning for pneumonia. Satisfactory positioning of endotracheal and enterogastric tubes. A Document Only message has been documented in the [employer] system for Yadira Chacon MD on 07/06/2020 10:06 PM, Message ID [id number]. WSN: [id number] Ordering Physician: Yadira Chacon Dictated By: Castro Bridges MD Dictated Date/Time: 07/06/20 10:07 p Reviewed By: Castro Bridges MD Signed By: Castro Bridges MD Signed Date/Time: 07/06/20 10:07 pm Transcribed By: ANDREAS Transcribed Date/Time: 07/06/20 10:04 pm Exam Date Time Procedure Performing Provider Status 07/05/20 4:01 PM Chest Portable Olivia Layne; Sapna (Verified ) Notes:(Chest Portable) Reason For Exam: Tube PlacementRESULT: Chest Portable Chest Portable performed upright Reason: Tube Placement; Clinical Question(s): Tube Placement COMPARISON: Chest radiograph 07/05/2020 3:52 AM FINDINGS: LINES AND TUBES: Enteric tube tip and side-port overlying the proximal stomach. LUNGS AND PLEURA: Clear lungs. Normal pulmonary vascularity. No pleural effusion. No pneumothorax. HEART, MEDIASTINUM AND SHAVON: Heart is normal in size. Normal mediastinal and hilar contour. BONES AND SOFT TISSUES: No acute abnormality. IMPRESSION: Satisfactory position of enteric tube. I have personally reviewed the images and I agree with this report. WSN: [id number] Ordering Physician: Dorita Kern Dictated By: Alesk York DO Dictated Date/Time: 07/05/20 5:06 pm Reviewed By: Nick Junior MD Signed By: Nick Junior MD Signed Date/Time: 07/05/20 5:11 pm Transcribed By: ANDREAS Transcribed Date/Time: 07/05/20 4:17 pm Exam Date Time Procedure Performing Provider Status 07/05/20 4:18 AM Chest Portable Piyush Tidwell) Notes:(Chest Portable) Reason For Exam: Shortness of BreathRESULT: Chest Portable Chest Portable INDICATION: Shortness of breath. COMPARISON: 06/14/2018, 06/12/2018. FINDINGS: LINES AND TUBES: None. LUNGS AND PLEURA: Clear lungs. Normal pulmonary vascularity. No pleural effusion. No pneumothorax. HEART, MEDIASTINUM AND SHAVON: Heart is normal in size. Normal mediastinal and hilar contour. BONES AND SOFT TISSUES: No acute osseous abnormality. Old right-sided rib fractures. IMPRESSION: No radiographic evidence of acute cardiopulmonary abnormality. I have personally reviewed the images and I agree with this report. WSN: [id number] Ordering Physician: Ethan Masters Dictated By: Manuel Irby MD Dictated Date/Time: 07/05/20 8:27 am Reviewed By: Nick Junior MD Signed By: Nick Junior MD Signed Date/Time: 07/05/20 8:32 am Transcribed By: ANDREAS Transcribed Date/Time: 07/05/20 4:31 am Vital Signs Most recent to oldest 1 2 3 [Reference Range]: Height 177.8 cm 177.8 cm 177.8 cm (07/15/20 7:45 AM) (07/14/20 11:34 PM) (07/14/20 7: 41 PM) Weight 70 kg 72.7 kg 75.8 kg (07/15/20 5:09 AM) (07/14/20 6:23 AM) (07/12/20 7:0 9 PM) Oxygen Saturation [94-100 99 % 100 % 97 % %] (07/15/20 7:45 AM) (07/14/20 11:34 PM) (07/14/20 7: 41 PM) Pulse Rate [55-90 bpm] 61 bpm 55 bpm 55 bpm (07/15/20 7:45 AM) (07/14/20 11:34 PM) (07/14/20 7: 41 PM) Body Mass Index 23.98 23.72 [18.5-24.99] (07/12/20 7:09 PM) (07/05/20 9:02 AM) Blood Pressure 133/66 mm Hg 101/60 mm Hg 100/54 mm Hg [90-138/55-84 mm Hg] (07/15/20 7:45 AM) (07/14/20 11:34 PM) ( 7:41 PM) Respiratory Rate [16-30 17 br/min 17 br/min 20 br/mi n br/min] (07/15/20 9:31 AM) (07/15/20 8:31 AM) (07/15/20 7:4 5 AM) Temperature [96.8-100.4 97.9 DegF 97.9 DegF 98.1 Deg F DegF] (07/15/20 7:45 AM) (07/14/20 11:34 PM) (07/14/20 7: 41 PM) Liters per Minute 15 L/min 15 L/min 15 L/min (07/06/20 8:00 PM) (07/06/20 8:00 AM) (07/06/20 7:00 A M) Mode of Delivery (Oxygen) Room air Room air Room a ir (07/15/20 7:45 AM) (07/14/20 7:41 PM) (07/14/20 4:0 0 PM) Blood pressure sites Arm, left Arm, left Arm, left (07/15/20 7:45 AM) (07/14/20 11:34 PM) (07/14/20 7: 41 PM) Temperature Route Oral Oral Oral (07/15/20 7:45 AM) (07/14/20 11:34 PM) (07/14/20 7: 41 PM) Dry Weight 75 kg (07/05/20 9:02 AM) Weight Obtained Via Standing scale Bed scale Bed scale (07/15/20 5:09 AM) (07/14/20 6:23 AM) (07/12/20 7:0 9 PM) Dry Weight Obtained Via Bed scale (07/05/20 9:02 AM) Mobility assistance Ambulate, assist of 1 Transfer, assist of 2 Transfer, assist of 2 (07/14/20 3:00 PM) (07/12/20 3:27 PM) (07/11/20 9:0 0 PM) Social History Social History Type Response Smoking Status Current every day smoker; Ty pe: Cigarettes entered on: 07/14/18 Sex Male
--- OUTSIDE RECORDS SUMMARY | 2022-08-01 16:10 | XMS_ITS | Continuity of Care Document ---
:1975 Author Organization [facility] Address [address] [place] [address]- Care Team Providers Name Role Phone Rin Leal MD Primary Care Physician Encounter [facility] [place] Date(s): 12/28/21 - 12/28/[address] [address]- Encounter Diagnosis Heroin use (Final) - 12/28/21 Discharge Disposition: A-D/C Home Attending Physician: Reynaldo Neal MD Admitting Physician: Reynaldo Neal MD Referring Physician: Not on Staff, Referring [...] 11/14/21 12:03:00 EST, Route to Pharmacy Electronically, [facility], Partial fill upon patient request if the prescription is for a schedule II opioid... Start Date: 11/14/21 Stop Date: 12/14/21 Status: Orderedgabapentin 300 mg oral capsule 300 mg, 1, capsule, By Mouth, 3 times a day, # 90 capsule, Refills 0, Tot. Refills 0, Maintenance, 11/14/21 11:53:00 EST, Route to Pharmacy Electronically, [facility], Partial fill upon patient request [...] 11/14/21 11:53:00 EST, Route to Pharmacy Electronically, [facility], Partial fill upon patient request if the prescription... Start Date: 11/14/21 Stop Date: 12/14/21 Status: Orderedsertraline 100 mg oral tablet 1 tablet = 100 mg, By Mouth, Daily, # 30 tablet, 0 Refills, Maintenance, 11/14/21 11:52:00 EST, Tablet, [facility], Partial fill upon patient request [...] Exam Date Time Procedure Performing Provider Status 12/28/21 12:42 PM Shoulder Min 2 Views Left Latoya Ho; Auth (Verified) Notes:(Shoulder Min 2 Views Left) Reason For Exam: with Pain;TraumaRESULT: Shoulder Min 2 Views Left Shoulder Min 2 Views Left, 3 views HX OF PRESENT ILLNESS: pt was found on side of road laying. Pt states that he was kicked out of his house by his GF and has no where to go. Admitted to drinking 1 bottle of vodka and using $60 worth ofheroin. Pt lethargic but responds to stimulation; Reason: Trauma; with Pain; Clinical Question(s): Fr acture COMPARISON: None. FINDINGS: No fracture or dislocation. No arthritic change of the glenohumeral joint. Mild degenerative changes of the AC joint. The portion of the clavicle included on the exam is normal. Small soft tissue calcification adjacent to the humeral head may be due to calcific tendinitis. IMPRESSION: No evidence of acute osseous abnormality. WSN: [id number] Ordering Physician: Nika Barcenas Dictated By: Castro Jimenez MD Dictated Date/Time: 12/28/21 12:49 p Reviewed By: Castro Jimenez MD Signed By: Castro Jimenez MD Signed Date/Time: 12/28/21 12:49 pm Transcribed By: ANDREAS Transcribed Date/Time: 12/28/21 12:48 pm Exam Date Time Procedure Performing Provider Status 12/28/21 12:42 PM Elbow Min 3 Views Left Vic , Latoya; Auth (V erified) Notes:(Elbow Min 3 Views Left) Reason For Exam: with Pain;TraumaRESULT: Elbow Min 3 Views Left Elbow Min 3 Views Left, 3 views Hx of Present Illness: pt was found on side of road laying. pt states that he was kicked out of his house by his GF and has no where to go. Admitted to drinking 1 bottle of vodka and using $60 worth ofheroin. Pt lethargic but responds to stimulation; Reason: Trauma; with Pain; Clinical Question(s): Fr acture COMPARISON: None. FINDINGS: No fracture or dislocation. No arthritic changes. No joint effusion. Two metallic fragments, approximately 1 cm long each are seen within the ventral soft tissues of theantecubital fossa, one medially and one laterally presumably representing needle fragments. IMPRESSION: No acute osseous abnormality or evidence of joint effusion. Two metallic fragments within the soft tissues of the antecubital fossa, probable needle fragments. WSN: [id number] Ordering Physician: Nika Barcenas Dictated By: Gracie Montgomery MD Dictated Date/Time: 12/28/21 12:51 p Reviewed By: Gracie Montgomery MD Signed By: Gracie Montgomery MD Signed Date/Time: 12/28/21 12:51 pm Transcribed By: CSB Transcribed Date/Time: 12/28/21 12:46 pm Vital Signs Most recent to oldest [Reference 1 2 3 Range]: Oxygen Saturation [94-100 %] 99 % 99 % 98 % (12/28/21 6:43 PM) (12/28/21 1:53 PM) (12/28/21 11:30 AM) Pulse Rate [55-90 bpm] 79 bpm 57 bpm 57 bpm (12/28/21 6:43 PM) (12/28/21 1:53 PM) (12/28/21 11:30 AM) Blood Pressure [90-138/55-84 mm 103/60 mm Hg 111/62 mm Hg 103/68 mm Hg Hg] (12/28/21 6:43 PM) (12/28/21 1:53 PM) (12/28/21 11:30 AM) Respiratory Rate [16-30 br/min] 16 br/min 16 br/min 14 br/min (12/28/21 6:43 PM) (12/28/21 1:53 PM) *L* (12/28/21 11:30 AM ) Temperature [96.8-100.4 DegF] 97.4 DegF 97.7 DegF (12/28/21 7:32 AM) (12/28/21 3:00 AM) Mode of Delivery (Oxygen) Room air Room air Room a ir (12/28/21 6:43 PM) (12/28/21 1:53 PM) (12/28/21 11:30 AM) Blood pressure sites Arm, right Arm, right Arm, right (12/28/21 7:32 AM) (12/28/21 6:24 AM) (12/28/21 5:12 A M) Temperature Route Oral Oral (12/28/21 7:32 AM) (12/28/21 3:00 AM) Social History Social History Type Response Tobacco Use: 4 or less cigarettes(le ss than 1/4 pack)/day in last 30 days. Interested in cessatio n: No. Yes Sex Male
--- OUTSIDE RECORDS SUMMARY | 2022-08-01 16:10 | XMS_ITS | Continuity of Care Document ---
:1975 Author Organization [facility] Address [address] [place] [address]- Care Team Providers Name Role Phone Not on Staff, PCP Primary Care Physician Unavailable Encounter [facility] [place] Date(s): 10/30/21 - 11/08/21 [facility] [address] [place] [address]- Encounter Diagnosis Tylenol overdose (Final) - 10/31/21 Discharge Disposition: Transfer to [facility] Facility Attending Physician: Hanh Rausch MD Admitting Physician: Angelica Medina MD Referring Physician: Not on Staff, Referring [...] 07/16/18 Not Given P atient Refuses Medications Ativan 0.5 mg oral tablet 1 tablet = 0.5 mg, By Mouth, 2 times a day, PRN Anxiety, 0 Refills, Maintenance, 11/08/21 11:25:00 EST, Tablet, Partial fill upon patient request if the prescription is for a schedule II opioid drug. Start Date: 11/08/21 Status: OrderedAugmentin 875 mg-125 mg oral tablet 1 tablet, By Mouth, Every 12 hours, for 4 days, # 8 tablet, 0 Refills, Acute 11/12/21 11:26:00 EST, 11/08/21 11:26:00 EST, Tablet, Partial fill upon patient request if the prescription is for a schedule II opioid drug. Start Date: 11/08/21 Stop Date: 11/12/21 Status: Orderedbisacodyl 10 mg rectal suppository 1 supp = 10 mg, Rectally, Daily, PRN Constipation, 0 Refills, Maintenance, 11/08/21 11:24:00 EST, Suppository, Partial fill upon patient request if the prescription is for a schedule II opioid drug. Start Date: 11/08/21 Status: OrderedChloraseptic Grahn 1 sprays, By Mouth, Every 4 hours, PRN Inflammation, 0 Refills, Maintenance, 11/08/21 11:25:00 EST, Grahn, Partial fill upon patient request if the prescription is for a schedule II opioid drug. Start Date: 11/08/21 Status: OrderedDocusate/Senna Tablet 1 tablet, By Mouth, 2 times a day, 0 Refills, Maintenance, 11/08/21 11:24:00 EST, Tablet, Partial fill upon patient request if the prescription is for a schedule II opioid drug. Start Date: 11/08/21 Status: Orderedfolic acid 1 mg oral tablet 1 mg, 1, tablet, By Mouth, Daily, Refills 0, Maintenance, 11/08/21 11:24:00 EST, Partial fill upon patient request if the prescription is for a schedule II opioid drug. Start Date: 11/08/21 Status: Orderedgabapentin 300 mg oral capsule 300 mg, Capsule, By Mouth, Hold for: sedation, 11/08/21 15:00:00 EST Start Date: 11/08/21 Stop Date: 11/08/21 Status: Completedgabapentin 300 mg oral capsule 300 mg, 1, capsule, By Mouth, 3 times a day, # 270 capsule, Refills 0, Maintenance, 07/31/21 4:08:00EDT, Partial fill upon patient request if the prescription is for a schedule II opioid drug. Start Date: 07/31/21 Status: Orderedmethadone 10 mg/5 mL oral solution [...] II opioid drug. Start Date: 11/08/21 Status: OrderedOrajel 10% Gel 1, applicator, Topically, Every 4 hours, PRN, Refills 0, Maintenance, Pain , Mild, 11/08/21 11:24:00EST, Gel, Partial fill upon patient request if the prescription is for a schedule II opioid drug. Start Date: 11/08/21 Status: OrderedoxyCODONE 5 mg oral tablet 10 mg, Tablet, By Mouth, Every 6 hours, Hold for: drowsy, dizzy , hypersomnolence, PRN for Pain , Severe, Routine, 11/08/21 10:28:00 EST Start Date: 11/08/21 Stop Date: 11/09/21 Status: DiscontinuedoxyCODONE 5 mg oral tablet 10 mg, 2, tablet, By Mouth, Every 6 hours, PRN, Refills 0, Tot. Refills 0, Maintenance, Pain , Severe, 11/08/21 11:25:00 EST, Partial fill upon patient request if the prescription is for a schedule II opioid drug. Start Date: 11/08/21 Stop Date: 11/11/21 Status: OrderedProtonix 40 mg oral delayed release tablet = 40 mg, By Mouth, Daily, 0 Refills, Maintenance, 11/08/21 11:24:00 EST, EC Tablet Start Date: 11/08/21 Status: OrderedPyridoxine Tablet 50 mg, By Mouth, Daily, Refills 0, Maintenance, 11/08/21 11:25:00 EST, Partial fill upon patient request if the prescription is for a schedule II opioid drug. Start Date: 11/08/21 Status: OrderedQUEtiapine 25 mg oral tablet 50 mg, 2, tablet, By Mouth, 2 times a day, Refills 0, Maintenance, 11/08/21 11:24:00 EST, Partial fill upon patient request if the prescription is for a schedule II opioid drug. Start Date: 11/08/21 Status: Orderedsertraline 100 mg oral tablet 1 tablet = 100 mg, By Mouth, Daily, Maintenance, 10/31/21 11:18:00 EST, Tablet, Partial fill upon patient request if the prescription is for a schedule II opioid drug. Start Date: 10/31/21 Status: Ordered Problem List Condition Effective Dates Status Health Status Informant Alcohol abuse(Confirmed) Active Coagulopathy(Confirmed) Active Cerebral edema(Confirmed) Active Transaminitis(Confirmed) Active GI bleed(Confirmed) Active Hepatic encephalopathy(Confirmed) Active Hypertension(Confirmed) Active OSVALDO (acute kidney injury)(Confirmed) Active Opiate abuse, continuous(Confirmed) Active Pneumonia(Confirmed) Active Results Orders for Microbiology Reports Name Date Throat Culture Grp A Strep 11/04/21 Blood Culture 11/04/21 Blood Culture #2 11/04/21 Microbiology Reports TEST:Blood Culture, Second Order STATUS:Unauthenticated BODY SITE: SOURCE:Blood COLLECTED DATE/TIME:11/04/21 6:29 PMBlood Culture, Second Order SPECIMEN DESCRIPTION : BLOOD RT HAND SPECIAL REQUESTS : NONE CULTURE : NO GROWTH 4 DAYS REPORT STATUS : PRELIMINARY REPORT TEST:Blood Culture STATUS:Unauthenticated BODY SITE: SOURCE:Blood COLLECTED DATE/TIME:11/04/21 4:20 PMBlood Culture SPECIMEN DESCRIPTION : BLOOD RT HAND SPECIAL REQUESTS : NONE CULTURE : NO GROWTH 4 DAYS REPORT STATUS : PRELIMINARY REPORT TEST:Group A Strep Culture STATUS:Auth (Verified) BODY SITE: SOURCE:THROAT COLLECTED DATE/TIME:11/04/21 4:15 PMGroup A Strep Culture SPECIMEN DESCRIPTION : THROAT SWAB SPECIAL REQUESTS : NONE CULTURE : NO GROUP A BETA HEMOLYTIC STREPTOCOCCI ISOLATED REPORT STATUS : FINAL 2Radiology Reports Exam Date Time Procedure Performing Provider Status 11/04/21 5:20 PM Chest 2 Views Frontal and Lat Kulkarni, Reinier; Au th (Verified) Notes:(Chest 2 Views Frontal and Lat) Reason For Exam: FeverRESULT: Chest 2 Views Frontal and Lat Chest 2 Views Frontal and Lat Reason: Fever; Clinical Question(s): Pneumonia COMPARISON: 07/10/2020 FINDINGS: LINES AND TUBES: None. LUNGS AND PLEURA: Clear lungs. Normal pulmonary vascularity. No pleural effusion. No pneumothorax. HEART, MEDIASTINUM AND SHAVON: Heart is normal in size. Normal upper mediastinal and hilar contour. BONES AND SOFT TISSUES: No acute abnormality. Irregular lucency overlying distal left clavicle likely related to marker positioning. IMPRESSION: No acute abnormality. WSN: [id number] Ordering Physician: Hanh Rausch Dictated By: Castro Bridges MD Dictated Date/Time: 11/04/21 6:06 pm Reviewed By: Castro Bridges MD Signed By: Castro Bridges MD Signed Date/Time: 11/04/21 6:06 pm Transcribed By: ANDREAS Transcribed Date/Time: 11/04/21 6:05 pm Vital Signs Most recent to oldest 1 2 3 [Reference Range]: Height 177.8 cm 177.8 cm 180 cm (11/06/21 1:08 AM) (11/03/21 3:57 PM) (11/01/21 11:10 AM) Weight 84.2 kg 77.5 kg (11/03/21 3:57 PM) (11/01/21 11:10 AM) Oxygen Saturation [94-100 %] 100 % 98 % 98 % (11/08/21 7:00 AM) (11/07/21 8:00 PM) (11/07/21 3:0 0 PM) Pulse Rate [55-90 bpm] 64 bpm 54 bpm 70 bpm (11/08/21 7:00 AM) *L* (11/07/21 3:00 PM) (11/07/21 8:00 PM) Body Mass Index [18.5-24.99] 26.63 23.92 *H* (11/01/21 11:10 AM) (11/03/21 3:57 PM) Blood Pressure [90-138/55-84 117/49 mm Hg 140/82 mm Hg 113 /84 mm Hg mm Hg] (11/08/21 7:00 AM) *H* (11/07/21 3:00 PM) (11/07/21 8:00 PM) Respiratory Rate [16-30 14 br/min 18 br/min 14 br/mi n br/min] *L* (11/08/21 12:52 PM) *L* (11/08/21 4:21 PM) (11/08/21 11:52 AM) Temperature [96.8-100.4 DegF] 97.4 DegF 97.3 DegF 97 .8 DegF (11/08/21 7:00 AM) (11/07/21 8:00 PM) (11/07/21 3:0 0 PM) Mode of Delivery (Oxygen) Room air Room air Room a ir (11/08/21 7:00 AM) (11/07/21 8:00 PM) (11/07/21 3:0 0 PM) Blood pressure sites Arm, left Arm, left Arm, left (11/08/21 7:00 AM) (11/07/21 8:00 PM) (11/06/21 8:0 0 PM) Temperature Route Axillary Axillary Axillary (11/08/21 7:00 AM) (11/07/21 8:00 PM) (11/07/21 3:0 0 PM) Dry Weight 77.5 kg (11/01/21 11:10 AM) Weight Obtained Via Bed scale (11/03/21 3:57 PM) Social History Social History Type Response Tobacco Use: 4 or less cigarettes(le ss than 1/4 pack)/day in last 30 days. Interested in cessatio n: No. Yes Sex
--- OUTSIDE RECORDS SUMMARY | 2022-08-01 16:10 | XMS_ITS | Continuity of Care Document ---
:1975 Author Organization [facility] Address [address] [place] [address]- Care Team Providers Name Role Phone Not on Staff, PCP Primary Care Physician Unavailable [place] [facility] [place] 07[place] [facility] [address] [place] [id number]- Encounter Diagnosis Acne vulgaris (Final) - 07/27/22 Abrasion (Final) - 07/27/22 Discharge Disposition: A-D/C Home Attending Physician: Reynaldo [...] 07/16/18 Not Given P atient Refuses Medications doxycycline hyclate 100 mg oral capsule 1 capsule = 100 mg, By Mouth, Daily, for 7 days, # 7 capsule, 0 Refills, Acute 08/03/22 21:36:00 EDT, 07/27/22 21:36:00 EDT, Capsule, [id number], Partial fill upon patient request if the prescription is for a schedule II opioid drug., 178, cm,... Start Date: 07/27/22 Stop Date: 08/03/22 Status: Orderedfolic acid 1 mg oral tablet 1 mg, 1, tablet, By Mouth, Daily, # 30 tablet, Refills 0, Tot. Refills 0, Maintenance, 11/14/21 12:03:00 EST, Route to Pharmacy Electronically, [facility], Partial fill upon patient request if the prescription is for a schedule II opioid... Start Date: 11/14/21 Stop Date: 12/14/21 Status: Orderedgabapentin 300 mg oral capsule 300 mg, 1, capsule, By Mouth, 3 times a day, # 90 capsule, Refills 0, Tot. Refills 0, Maintenance, 11/14/21 11:53:00 EST, Route to Pharmacy Electronically, [facility], Partial fill upon patient [...] 11/14/21 11:53:00 EST, Route to Pharmacy Electronically, [facility], Partial fill upon patient request if the prescription... Start Date: 11/14/21 Stop Date: 12/14/21 Status: Orderedsertraline 100 mg oral tablet 1 tablet = 100 mg, By Mouth, Daily, # 30 tablet, 0 Refills, Maintenance, 11/14/21 11:52:00 EST, Tablet, [facility], Partial fill upon patient request if the prescription is for a scheduleII opioid drug., 179, cm, 11/10/21 6:40:00 EST, H... Start Date: 11/14/21 Stop Date: 12/14/21 Status: Ordered Problem List Condition Confirmation Course Effective Dates Status Health I nformant Status Alcohol abuse Confirmed Active Coagulopathy Confirmed Active Cerebral edema Confirmed Active Transaminitis Confirmed Active GI bleed Confirmed Active Hepatic Confirmed Active encephalopathy Hypertension Confirmed Active OSVALDO (acute kidney Confirmed Active injury) Opiate abuse, Confirmed Active continuous Pneumonia Confirmed Active Vital Signs Most recent to oldest 1 2 3 [Reference Range]: Oxygen Saturation [94-100 %] 95 % 96 % 95 % (07/27/22 8:30 PM) (07/27/22 6:09 PM) (07/27/22 2:2 0 PM) Pulse Rate [55-90 bpm] 64 bpm 61 bpm 74 bpm (07/27/22 8:30 PM) (07/27/22 6:09 PM) (07/27/22 2:2 0 PM) Blood Pressure [90-138/55-84 mm 113/64 mm Hg 104/80 mm Hg 144/76 mm Hg Hg] (07/27/22 8:30 PM) (07/27/22 6:09 PM) *H* (07/27/22 2:20 PM ) Respiratory Rate [16-30 br/min] 16 br/min 18 br/min 18 br/min (07/27/22 8:30 PM) (07/27/22 6:09 PM) (07/27/22 2:2 0 PM) Temperature [96.8-100.4 DegF] 97.9 DegF 97.4 DegF 97 .7 DegF (07/27/22 8:30 PM) (07/27/22 6:09 PM) (07/27/22 2:2 0 PM) Mode of Delivery (Oxygen) Room air Room air Room a ir (07/27/22 6:09 PM) (07/27/22 2:20 PM) (07/27/22 2:0 6 PM) Blood pressure sites Arm, right Arm, left (07/27/22 6:09 PM) (07/27/22 2:20 PM) Temperature Route Oral Oral Oral (07/27/22 8:30 PM) (07/27/22 6:09 PM) (07/27/22 2:2 0 PM) Social History Social History Type Response Tobacco Use: 4 or less cigarettes(le ss than 1/4 pack)/day in last 30 days. Interested in cessatio n: No. Yes Sex Patient Care team information PersonnelName: Not on Staff, PCP
--- OUTSIDE RECORDS SUMMARY | 2022-08-01 16:10 | XMS_ITS | Continuity of Care Document ---
:1975 Author Organization [facility] Address [address] [place] [address]- Care Team Providers Name Role Phone Not on Staff, PCP Primary Care Physician Unavailable Encounter [facility] [place] Date(s): 09/30/21 - 10/01/21 [facility] [address] [place] [address]- Encounter Diagnosis Alcohol intoxication (Final) - 09/30/21 Discharge Disposition: A-D/C Home Attending Physician: Yeison Ramirez DO Admitting Physician: Yeison Ramirez DO Referring Physician: Not on Staff, Referring MD Allergies, Adverse Reactions, Alerts Substance Reaction Severity Status morphine Active Vicodin Active TEGretol Active Immunizations Given and Recorded Vaccine Date Status Refusal Reason tetanus/diphtheria/pertussis, acel(Tdap) 12/28/18 Given Not Given Vaccine Date Status Refusal Reason pneumococcal 23-valent vaccine 07/16/18 Not Given P atient Refuses influenza virus vaccine, inactivated 07/16/18 Not Given Patient Refuses Medications acamprosate 333 mg oral delayed release tablet 2 tablet = 666 mg, By Mouth, 3 times a day, # 180 tablet, 0 Refills, Maintenance, 07/31/21 4:08:00 EDT, CR Tablet, Partial fill upon patient request if the prescription is for a schedule II opioid drug. Start Date: 07/31/21 Status: Orderedfolic acid 1 mg oral tablet 1 mg, 1, tablet, By Mouth, Daily, # 30 tablet, Refills 0, Tot. Refills 0, Maintenance, 06/05/21 9:08:00 EDT, Route to Pharmacy Electronically, [facility], 178, cm, 06/05/21 4:34:00 EDT, Height, 79, kg, 05/31/21 23:33:00 EDT, Dry Weight Start Date: 06/05/21 Status: Orderedgabapentin 300 mg oral capsule 300 mg, Capsule, By Mouth, 10/01/21 9:00:00 EST Start Date: 10/01/21 Stop Date: 10/01/21 Status: Completedgabapentin 300 mg oral capsule 300 mg, 1, capsule, By Mouth, 3 times a day, # 270 capsule, Refills 0, Maintenance, 07/31/21 4:08:00EDT, Partial fill upon patient request if the prescription is for a schedule II opioid drug. Start Date: 07/31/21 Status: OrderedMelatonin 3 mg oral tablet 1 tablet = 3 mg, By Mouth, Daily at bedtime, PRN for insomnia, # 60 tablet, 0 Refills, Maintenance, 07/31/21 4:08:00 EDT, Tablet, Partial fill upon patient request if the prescription is for a scheduleII opioid drug. Start Date: 07/31/21 Status: Orderedmethadone 10 mg/5 mL oral solution 85 mL = 170 mg, By Mouth, Daily, 0 Refills, Maintenance, 07/15/20 9:02:00 EDT, Solution, Partial fill upon patient request Start Date: 07/15/20 Status: OrderedMethadone Liquid 170 mg, Solution, By Mouth, Once, STAT, 10/01/21 9:35:00 EST, Stop date 10/01/21 9:35:00 EST Start Date: 10/01/21 Stop Date: 10/01/21 Status: Completedprazosin 1 mg oral capsule 1 mg, 1, capsule, By Mouth, Daily at bedtime, # 30 capsule, Refills 0, Tot. Refills 0, Maintenance, 06/05/21 9:24:00 EDT, Route to Pharmacy Electronically, [facility], Partial fill upon patient request if the prescription is for a schedu... Start Date: 06/05/21 Status: OrderedProtonix 40 mg oral delayed release tablet = 40 mg, By Mouth, 2 times a day, # 60 capsule, 0 Refills, Maintenance, 07/15/20 9:02:00 EDT, EC Tablet, 177.8, cm, 07/15/20 7:45:00 EDT, Height, 75, kg, 07/05/20 9:09:00 EDT, Dry Weight Start Date: 07/15/20 Status: Orderedsertraline 50 mg oral tablet 1.5 tablet = 75 mg, By Mouth, Daily, # 30 tablet, 0 Refills, Maintenance, 07/31/21 4:08:00 EDT, Tablet, Partial fill upon patient request if the prescription is for a schedule II opioid drug. Start Date: 07/31/21 Status: OrderedVitamin B1 100 mg oral tablet 100 mg, 1, tablet, By Mouth, Daily, # 7 tablet, Refills 0, Maintenance, 07/31/21 4:08:00 EDT, Partial fill upon patient request if the prescription is for a schedule II opioid drug. Start Date: 07/31/21 Stop Date: 08/07/21 Status: OrderedZoloft 50 mg oral tablet 1 tablet = 50 mg, By Mouth, Daily, # 30 tablet, 0 Refills, Maintenance, 06/05/21 9:24:00 EDT, Tablet, [facility], Partial fill upon patient request if [...] Exam Date Time Procedure Performing Provider Status 09/30/21 8:30 PM Clavicle Complete Right Jackie Lambert; Auth (Verified) Notes:(Clavicle Complete Right) Reason For Exam: PainRESULT: Clavicle Complete Right Shoulder Min 2 Views Right, Clavicle Complete Right, 3 views INDICATION: Pain. COMPARISON: CT head/cervical spine same day. FINDINGS: No fracture or dislocation. Intact clavicle. No arthritic change of the glenohumeral joint. Mild degenerative changes of the acromioclavicular joint. The portion of the clavicle included on the exam is normal. Calcific densities overlying the humeral head may represent rotator cuff calcific tendinopathy. Chronic fracture deformities of right lateral ribs. IMPRESSION: No fracture or dislocation. Suggest a rotator cuff calcific tendinopathy. I have personally reviewed the images and I agree with this report. WSN: [id number] Ordering Physician: Brenton Orozco Dictated By: Eveline Goff MD Dictated Date/Time: 09/30/21 8:41 pm Reviewed By: Stew Lombardi MD Signed By: Stew Lombardi MD Signed Date/Time: 09/30/21 8:46 pm Transcribed By: ANDREAS Transcribed Date/Time: 09/30/21 8:36 pm Exam Date Time Procedure Performing Provider Status 09/30/21 8:30 PM Shoulder Min 2 Views Right Jackie Lambert; Au th (Verified) Notes:(Shoulder Min 2 Views Right) Reason For Exam: PainRESULT: Shoulder Min 2 Views Right Shoulder Min 2 Views Right, Clavicle Complete Right, 3 views INDICATION: Pain. COMPARISON: CT head/cervical spine same day. FINDINGS: No fracture or dislocation. Intact clavicle. No arthritic change of the glenohumeral joint. Mild degenerative changes of the acromioclavicular joint. The portion of the clavicle included on the exam is normal. Calcific densities overlying the humeral head may represent rotator cuff calcific tendinopathy. Chronic fracture deformities of right lateral ribs. IMPRESSION: No fracture or dislocation. Suggest a rotator cuff calcific tendinopathy. I have personally reviewed the images and I agree with this report. WSN: [id number] Ordering Physician: Brenton Orozco Dictated By: Eveline Goff MD Dictated Date/Time: 09/30/21 8:41 pm Reviewed By: Stew Lombardi MD Signed By: Stew Lombardi MD Signed Date/Time: 09/30/21 8:46 pm Transcribed By: ANDREAS Transcribed Date/Time: 09/30/21 8:36 pm Vital Signs Most recent to oldest 1 2 3 [Reference Range]: Oxygen Saturation [94-100 %] 98 % 99 % 97 % (10/01/21 12:44 PM) (10/01/21 8:31 AM) (10/01/21 7: 00 AM) Pulse Rate [55-90 bpm] 76 bpm 63 bpm 50 bpm (10/01/21 12:44 PM) (10/01/21 8:31 AM) *L* (10/01/21 7:00 AM ) Blood Pressure [90-138/55-84 100/61 mm Hg 103/62 mm Hg 95/ 65 mm Hg mm Hg] (10/01/21 12:44 PM) (10/01/21 8:31 AM) (10/01/21 7: 00 AM) Respiratory Rate [16-30 16 br/min 16 br/min 16 br/mi n br/min] (10/01/21 12:44 PM) (10/01/21 12:44 PM) (10/01/21 1 2:38 PM) Temperature [96.8-100.4 99.1 DegF DegF] (10/01/21 12:06 AM) Mode of Delivery (Oxygen) Room air Room air Room a ir (10/01/21 12:44 PM) (10/01/21 8:31 AM) (10/01/21 7: 00 AM) Blood pressure sites Arm, left Arm, left Arm, right (10/01/21 12:44 PM) (10/01/21 8:31 AM) (09/30/21 11 :02 PM) Temperature Route Oral Oral (10/01/21 12:06 AM) (09/30/21 3:36 PM) Social History Social History Type Response Tobacco Use: 4 or less cigarettes(le ss than 1/4 pack)/day in last 30 days. Interested in cessatio n: No. Yes Sex
--- OUTSIDE RECORDS SUMMARY | 2022-08-01 16:10 | XMS_ITS | Continuity of Care Document ---
:1975 Author Organization [facility] Address [address] [place] [address]- Care Team Providers Name Role Phone Not on Staff, PCP Primary Care Physician Unavailable Encounter [facility] [place] Date(s): 04/14/21 - 04/24/21 [facility] [address] [place], [place] [address] Discharge Disposition: A-D/C Intermediate, Skilled Nursing, or Intermediate Fac Attending Physician: Abbey RETANA, Flori Buck Admitting Physician: Medhat RETANA, Rosa Sy Referring Physician: Not on Staff, Referring MD Allergies, Adverse Reactions, Alerts Substance Reaction Severity Status morphine Active Vicodin Active TEGretol Active Immunizations Given and Recorded Vaccine Date Status Refusal Reason tetanus/diphtheria/pertussis, acel(Tdap) 12/28/18 Given Not Given Vaccine Date Status Refusal Reason pneumococcal 23-valent vaccine 07/16/18 Not Given P atient Refuses influenza virus vaccine, inactivated 07/16/18 Not Given Patient Refuses Medications folic acid 1 mg oral tablet 1 mg, 1, tablet, By Mouth, Daily, # 30 tablet, Refills 0, Tot. Refills 0, Maintenance, 07/15/20 9:02:00 EDT, Route to Pharmacy Electronically, [facility], 177.8, cm, 07/15/20 7:45:00 EDT,Height, 75, kg, 07/05/20 9:09:00 EDT, Dry Weight Start Date: 07/15/20 Status: Orderedmethadone 10 mg/5 mL oral solution 72.5 mL = 145 mg, By Mouth, Daily, 0 Refills, Maintenance, 07/15/20 9:02:00 EDT, Solution, Partial fill upon patient request Start Date: 07/15/20 Status: OrderedMethadone Liquid 165 mg, Solution, By Mouth, 04/24/21 9:00:00 EDT Start Date: 04/24/21 Stop Date: 04/24/21 Status: Completedmultivitamin Multiple Vitamins oral tablet, chewable 1 tablet, [...] 0 Refills, Soft Stop, 03/01/20 5:30:00 EDT, [facility], 178, cm, 07/13/19 21:13:00 EDT, Height, 80.6, kg, 08/31/19 4:34:00 EST, . Start Date: 03/01/20 Status: OrderedNicotine = 21 mg, Topically, Daily, 0 Refills, Maintenance, 04/24/21 15:33:00 EDT, Patch, Partial fill upon patient request if the prescription is for a schedule II opioid drug. Start Date: 04/24/21 Status: OrderedProtonix 40 mg oral delayed release tablet = 40 mg, By Mouth, 2 times a day, # 60 capsule, 0 Refills, Maintenance, 07/15/20 9:02:00 EDT, EC Tablet, 177.8, cm, 07/15/20 7:45:00 EDT, Height, 75, kg, 07/05/20 9:09:00 EDT, Dry Weight Start Date: 07/15/20 Status: OrderedPyridoxine Tablet 50 mg, By Mouth, Daily, Refills 0, Maintenance, 04/24/21 15:31:00 EDT, Partial fill upon patient request if the prescription is for a schedule II opioid drug. Start Date: 04/24/21 Status: Orderedthiamine 100 mg oral tablet 100 mg, 1, tablet, By Mouth, Daily, Refills 0, Maintenance, 04/24/21 15:31:00 EDT, Partial fill uponpatient request if the prescription is for a schedule II opioid drug. Start Date: 04/24/21 Status: OrderedZofran 4 mg oral tablet 1 tablet = 4 mg, By Mouth, Every 8 hours, PRN Nausea & Vomiting, # 10 tablet, 0 Refills, Maintenance, 07/15/20 11:01:00 EDT, Tablet, [facility], 177.8, cm, 07/15/20 7:45:00 [...] oldest 1 2 3 [Reference Range]: Height 178 cm 178 cm 178 cm (04/24/21 3:32 PM) (04/24/21 7:42 AM) (04/23/21 11: 42 PM) Weight 75.8 kg 75.8 kg (04/20/21 9:24 AM) (04/15/21 1:45 AM) Oxygen Saturation [94-100 %] 98 % 97 % 99 % (04/24/21 3:32 PM) (04/24/21 7:42 AM) (04/23/21 11: 42 PM) Pulse Rate [55-90 bpm] 45 bpm 42 bpm 47 bpm *L* *L* *L* (04/24/21 3:32 PM) (04/24/21 7:42 AM) (04/23/21 11: 42 PM) Body Mass Index [18.5-24.99] 23.92 23.92 (04/20/21 9:24 AM) (04/15/21 1:45 AM) Blood Pressure [90-138/55-84 109/58 mm Hg 107/58 mm Hg 105 /59 mm Hg mm Hg] (04/24/21 3:32 PM) (04/24/21 7:42 AM) (04/23/21 11: 42 PM) Respiratory Rate [16-30 19 br/min 17 br/min 18 br/mi n br/min] (04/24/21 3:32 PM) (04/24/21 10:00 AM) (04/24/21 9: 00 AM) Temperature [96.8-100.4 DegF] 98.5 DegF 97.9 DegF 98 .0 DegF (04/24/21 3:32 PM) (04/24/21 7:42 AM) (04/23/21 11: 42 PM) Mode of Delivery (Oxygen) Room air Room air Room a ir (04/24/21 3:32 PM) (04/24/21 7:42 AM) (04/23/21 11: 42 PM) Blood pressure sites Arm, left Arm, left Arm, left (04/24/21 3:32 PM) (04/24/21 7:42 AM) (04/23/21 11: 42 PM) Temperature Route Oral Oral Oral (04/24/21 3:32 PM) (04/24/21 7:42 AM) (04/23/21 11: 42 PM) Dry Weight 75.8 kg (04/15/21 1:45 AM) Social History Social History Type Response Smoking Status Current every day smoker; Ty pe: Cigarettes entered on: 07/14/18 Sex
--- OUTSIDE RECORDS SUMMARY | 2022-08-01 16:10 | XMS_ITS | Continuity of Care Document ---
:1975 Author Organization [facility] Address [address] [place] [id number]- Care Team Providers Name Role Phone Rin Leal MD Primary Care Physician [id number] Date(s[facility] 04/04/22 - 04/04/[address] [address]- Encounter Diagnosis Abdominal pain (Final) - 04/04/22 Discharge Disposition: A-D/C Home Attending Physician: Elias Humphries MD Admitting Physician: Kristel RETANA, Elias Michaels Referring Physician: Not on Staff, Referring MD [...] 11/14/21 12:03:00 EST, Route to Pharmacy Electronically, [facility], Partial fill upon patient request if the prescription is for a schedule II opioid... Start Date: 11/14/21 Stop Date: 12/14/21 Status: Orderedgabapentin 300 mg oral capsule 300 mg, 1, capsule, By Mouth, 3 times a day, # 90 capsule, Refills 0, Tot. Refills 0, Maintenance, 11/14/21 11:53:00 EST, Route to Pharmacy Electronically, [facility], Partial fill upon patient [...] 11/14/21 11:53:00 EST, Route to Pharmacy Electronically, [facility], Partial fill upon patient request if the prescription... Start Date: 11/14/21 Stop Date: 12/14/21 Status: Orderedsertraline 100 mg oral tablet 1 tablet = 100 mg, By Mouth, Daily, # 30 tablet, 0 Refills, Maintenance, 11/14/21 11:52:00 EST, Tablet, [facility], Partial fill upon patient [...] 2 3 Range]: Oxygen Saturation [94-100 %] 100 % 98 % 98 % (04/04/22 2:35 PM) (04/04/22 1:34 PM) (04/04/22 12:38 PM) Pulse Rate [55-90 bpm] 55 bpm 54 bpm 56 bpm (04/04/22 2:35 PM) *L* (04/04/22 12:38 P M) (04/04/22 1:34 PM) Blood Pressure [90-138/55-84 mm 135/68 mm Hg 137/109 mm Hg 137/81 mm Hg Hg] (04/04/22 2:35 PM) (04/04/22 1:34 PM) (04/04/22 12:38 PM) Respiratory Rate [16-30 br/min] 18 br/min 18 br/min 14 br/min (04/04/22 2:35 PM) (04/04/22 1:34 PM) *L* (04/04/22 12:38 PM ) Temperature [96.8-100.4 DegF] 97.7 DegF 98.8 DegF 97 .9 DegF (04/04/22 2:35 PM) (04/04/22 1:34 PM) (04/04/22 12:38 PM) Mode of Delivery (Oxygen) Room air Room air Room a ir (04/04/22 2:35 PM) (04/04/22 1:34 PM) (04/04/22 12:38 PM) Blood pressure sites Arm, right Arm, right Arm, right (04/04/22 2:35 PM) (04/04/22 1:34 PM) (04/04/22 12:38 PM) Temperature Route Oral Oral Oral (04/04/22 2:35 PM) (04/04/22 1:34 PM) (04/04/22 12:38 PM) Social History Social History Type Response Tobacco Use: 4 or less cigarettes(le ss than 1/4 pack)/day in last 30 days. Interested in cessatio n: No. Yes Sex
--- OUTSIDE RECORDS SUMMARY | 2022-08-01 16:10 | XMS_ITS | Continuity of Care Document ---
:1975 Author Organization Address [address] [place] [address]- Care Team Providers Name Role Phone Rin Leal MD Primary Care Physician Encounter [facility] [place] Date(s): 07/30/21 - 08/02/[address] [place] [address]- Encounter Diagnosis Alcohol intoxication (Final) - 07/31/21 Suicidal ideation (Final) - 07/31/21 Discharge Disposition: A-D/C Home Attending Physician: Roosevelt Staples MD Admitting Physician: Roosevelt Staples MD Referring Physician: Not on Staff, Referring [...] 06/05/21 9:08:00 EDT, Route to Pharmacy Electronically, [facility], 178, cm, 06/05/21 4:34:00 EDT, Height, 79, kg, 05/31/21 23:33:00 EDT, Dry Weight Start Date: 06/05/21 Status: Orderedgabapentin 300 mg oral capsule 300 mg, 1, capsule, By Mouth, 3 times a day, # 270 capsule, Refills 0, Maintenance, 07/31/21 4:08:00EDT, Partial fill upon patient request if the prescription is for a schedule II opioid drug. Start Date: 07/31/21 Status: Orderedgabapentin 300 mg oral capsule 300 mg, Capsule, By Mouth, 08/02/21 9:00:00 EDT Start Date: 08/02/21 Stop Date: 08/02/21 Status: CompletedMelatonin 3 mg oral tablet 1 tablet = [...] OrderedMethadone Liquid 170 mg, Solution, By Mouth, 08/02/21 9:00:00 EDT Start Date: 08/02/21 Stop Date: 08/02/21 Status: Completedprazosin 1 mg oral capsule 1 mg, Capsule, By Mouth, 08/01/21 21:00:00 EDT Start Date: 08/01/21 Stop Date: 08/02/21 Status: Completedprazosin 1 mg oral capsule 1 mg, 1, capsule, By Mouth, Daily at bedtime, # 30 capsule, Refills 0, Tot. Refills 0, Maintenance, 06/05/21 9:24:00 EDT, Route to Pharmacy Electronically, [facility], Partial fill upon patient [...] 0 Refills, Maintenance, 06/05/21 9:24:00 EDT, Tablet, [facility] 3, Partial fill upon patient request if [...] 3 [Reference Range]: Oxygen Saturation [94-100 %] 100 % 99 % 100 % (08/02/21 3:43 PM) (08/01/21 9:40 PM) (08/01/21 4:2 7 PM) Pulse Rate [55-90 bpm] 78 bpm 55 bpm 74 bpm (08/02/21 3:43 PM) (08/01/21 4:27 PM) (08/01/21 6:2 5 AM) Blood Pressure [90-138/55-84 138/70 mm Hg 132/74 mm Hg 132 /74 mm Hg mm Hg] (08/02/21 3:43 PM) (08/02/21 2:34 AM) (08/01/21 9:4 0 PM) Respiratory Rate [16-30 17 br/min 16 br/min 16 br/mi n br/min] (08/02/21 3:43 PM) (08/02/21 12:28 PM) (08/02/21 12 :27 PM) Temperature [96.8-100.4 DegF] 98 DegF 98.6 DegF 98 DegF (08/02/21 3:43 PM) (08/01/21 9:40 PM) (08/01/21 4:2 7 PM) Mode of Delivery (Oxygen) Room air Room air Room a ir (08/02/21 3:43 PM) (08/01/21 9:40 PM) (08/01/21 4:2 7 PM) Blood pressure sites Arm, right Arm, left Arm, left (08/02/21 3:43 PM) (08/01/21 9:40 PM) (08/01/21 4:2 7 PM) Temperature Route Oral Oral Oral (08/02/21 3:43 PM) (08/01/21 9:40 PM) (08/01/21 4:2 7 PM) Weight Obtained Via [facility] (07/30/21 9:46 PM) Dry Weight Obtained Via [facility] (07/30/21 9:46 PM) Social History Social History Type Response Tobacco Use: 4 or less cigarettes(le ss than 1/4 pack)/day in last 30 days. Interested in cessatio n: No. Yes Sex
--- OUTSIDE RECORDS SUMMARY | 2022-08-01 16:10 | XMS_ITS | Continuity of Care Document ---
:1975 Author Organization [facility] Address [address] [place] [address]- Care Team Providers Name Role Phone Not on Staff, PCP Primary Care Physician Unavailable Encounter [facility] [place] Date(s): 07/18/22 - 07/18/22 [facility] [address] [place] [address]- Encounter Diagnosis Toxic ingestion, SI (Final) - 07/18/22 Discharge Disposition: A-D/C Home Attending Physician: Maggie Quigley MD Admitting Physician: Maggie Quigley MD Referring Physician: Not on Staff, Referring [...] 11/14/21 12:03:00 EST, Route to Pharmacy Electronically, [facility], Partial fill upon patient request if the prescription is for a schedule II opioid... Start Date: 11/14/21 Stop Date: 12/14/21 Status: Orderedgabapentin 300 mg oral capsule 300 mg, 1, capsule, By Mouth, 3 times a day, # 90 capsule, Refills 0, Tot. Refills 0, Maintenance, 11/14/21 11:53:00 EST, Route to Pharmacy Electronically, [facility], Partial fill upon patient request if the prescription is for a schedu... Start Date: 11/14/21 Stop Date: 12/14/21 Status: Orderedgabapentin 400 mg oral capsule 400 mg, Capsule, By Mouth, 07/18/22 21:00:00 EDT Start Date: 07/18/22 Stop Date: 07/18/22 Status: Completedibuprofen 400 mg oral tablet 400 mg, 1, [...] 11/14/21 11:53:00 EST, Route to Pharmacy Electronically, [facility], Partial fill upon patient request if the prescription... Start Date: 11/14/21 Stop Date: 12/14/21 Status: Orderedsertraline 100 mg oral tablet 1 tablet = 100 mg, By Mouth, Daily, # 30 tablet, 0 Refills, Maintenance, 11/14/21 11:52:00 EST, Tablet, [facility], Partial fill upon patient request [...] Saturation [94-100 %] 98 % 99 % 100 % (07/18/22 10:33 PM) (07/18/22 6:31 PM) (07/18/22 10 :20 AM) Pulse Rate [55-90 bpm] 84 bpm 79 bpm 67 bpm (07/18/22 10:33 PM) (07/18/22 9:24 PM) (07/18/22 6: 31 PM) Blood Pressure [90-138/55-84 119/79 mm Hg 128/82 mm Hg 128 /82 mm Hg mm Hg] (07/18/22 10:33 PM) (07/18/22 6:31 PM) (07/18/22 1: 50 PM) Respiratory Rate [16-30 16 br/min 17 br/min 19 br/mi n br/min] (07/18/22 10:33 PM) (07/18/22 8:44 PM) (07/18/22 6: 31 PM) Temperature [96.8-100.4 99.7 DegF 99.8 DegF 99.8 Deg F DegF] (07/18/22 10:33 PM) (07/18/22 6:31 PM) (07/18/22 1: 50 PM) Mode of Delivery (Oxygen) Room air Room air Room a ir (07/18/22 10:33 PM) (07/18/22 6:31 PM) (07/18/22 10 :20 AM) Blood pressure sites Arm, left Arm, left Arm, left (07/18/22 6:31 PM) (07/18/22 10:20 AM) (07/18/22 5: 40 AM) Temperature Route Oral Oral Oral (07/18/22 10:33 PM) (07/18/22 6:31 PM) (07/18/22 1: 50 PM) Social History Social History Type Response Tobacco Use: 4 or less cigarettes(le ss than 1/4 pack)/day in last 30 days. Interested in cessatio n: No. Yes Sex Care Team PersonnelName: Not on Staff, PCP
--- OUTSIDE RECORDS SUMMARY | 2022-08-01 16:10 | XMS_ITS | Continuity of Care Document ---
:1975 Author Organization [facility] Address [address] [place] [address]- Care Team Providers Name Role Phone Not on Staff, PCP Primary Care Physician Unavailable Encounter [facility] Date(s): 03/01/20 - 03/01/[address] [address]- [facility] Encounter Diagnosis Substance use disorder (Final) - 03/01/20 Discharge Disposition: A-D/C Home Attending Physician: Sebastian Kovacs MD Admitting Physician: Sebastian Kovacs MD Referring Physician: Not on Staff, Referring MD Allergies, Adverse Reactions, Alerts Substance Reaction Severity Status morphine Active Vicodin Active TEGretol Active Immunizations Given and Recorded Vaccine Date Status Refusal Reason tetanus/diphtheria/pertussis, acel(Tdap) 12/28/18 Given Not Given Vaccine Date Status Refusal Reason influenza virus vaccine, inactivated 07/16/18 Not Given Patient Refuses pneumococcal 23-valent vaccine 07/16/18 Not Given P atient Refuses Medications acetaminophen 325 mg oral tablet 650 mg, By Mouth, Every 4 hours, PRN, Temperature Greater than 100.5, Refills 0, Maintenance, Headache Pain , Mild, 07/14/19 11:30:04 EDT Start Date: 07/14/19 Status: Orderedmultivitamin Multiple Vitamins oral tablet, chewable [...] 0 Refills, Soft Stop, 03/01/20 5:30:00 EDT, [facility], 178, cm, 07/13/19 21:13:00 EDT, Height, 80.6, kg, 08/31/19 4:34:00 Dr.. TALIB. Start Date: 03/01/20 Status: OrderedNeurontin 100 mg oral capsule 100 mg, 1, capsule, By Mouth, 3 times a day, # 21 capsule, Refills 0, Tot. Refills 0, Maintenance, 07/14/19 11:31:58 EDT, Route to Pharmacy Electronically, [id number], [facility] Start Date: 07/14/19 Stop Date: 07/21/19 Status: Ordered Vital Signs Most recent to oldest [Reference Range]: 1 2 Oxygen Saturation [94-100 %] 99 % 97 % (03/01/20 5:52 AM) (03/01/20 1:27 AM) Pulse Rate [55-90 bpm] 58 bpm 65 bpm (03/01/20 5:52 AM) (03/01/20 1:27 AM) Blood Pressure [90-138/55-84 mm Hg] 112/67 mm Hg 117/ 70 mm Hg (03/01/20 5:52 AM) (03/01/20 1:27 AM) Respiratory Rate [16-30 br/min] 18 br/min 16 br/mi n (03/01/20 5:52 AM) (03/01/20 1:27 AM) Temperature [96.8-100.4 DegF] 98.6 DegF 97.8 DegF (03/01/20 5:52 AM) (03/01/20 1:27 AM) Mode of Delivery (Oxygen) Room air Room air (03/01/20 5:52 AM) (03/01/20 1:27 AM) Blood pressure sites Arm, left (03/01/20 5:52 AM) Temperature Route Oral Oral (03/01/20 5:52 AM) (03/01/20 1:27 AM) Social History Social History Type Response Smoking Status Current every day smoker; Ty pe: Cigarettes entered on: 07/14/18 Sex Male
--- OUTSIDE RECORDS SUMMARY | 2022-08-01 16:10 | XMS_ITS | Continuity of Care Document ---
:1975 Author Organization [facility] Address [address] [place] [id number]- Care Team Providers Name Role Phone Rin Leal MD Primary Care Physician [id number] Date(s): 05/02/22 - 05/02/[address] [address]- Discharge Disposition: A-D/C Walkout Attending Physician: Not on Staff, Attending MD Admitting Physician: Not on Staff, Admitting MD Referring Physician: Not on Staff, Referring [...] 11/14/21 12:03:00 EST, Route to Pharmacy Electronically, [facility], Partial fill upon patient request if the prescription is for a schedule II opioid... Start Date: 11/14/21 Stop Date: 12/14/21 Status: Orderedgabapentin 300 mg oral capsule 300 mg, 1, capsule, By Mouth, 3 times a day, # 90 capsule, Refills 0, Tot. Refills 0, Maintenance, 11/14/21 11:53:00 EST, Route to Pharmacy Electronically, [facility], Partial fill upon patient [...] 11/14/21 11:53:00 EST, Route to Pharmacy Electronically, [facility], Partial fill upon patient request if the prescription... Start Date: 11/14/21 Stop Date: 12/14/21 Status: Orderedsertraline 100 mg oral tablet 1 tablet = 100 mg, By Mouth, Daily, # 30 tablet, 0 Refills, Maintenance, 11/14/21 11:52:00 EST, Tablet, [facility], Partial fill upon patient [...] Exam Date Time Procedure Performing Provider Status 05/02/22 3:26 AM Foot Min 3 Views Left [place] , Randy; Auth (Veri fied) Notes:(Foot Min 3 Views Left) Reason For Exam: with Pain;TraumaRESULT: Foot Min 3 Views Left Foot Min 3 Views Left, 3 views Hx of Present Illness: tripped on a curb and lifted left gt toe nail up yesterday, also c o BLE swelling and stuff came out when he squeezed his leg; Reason: Trauma; with Pain; Clinical Question(s): Fracture; Special Instructions: This is a protocol film and radiologist should call any findings to the Charge Nurse COMPARISON: 05/31/2021 FINDINGS: No evidence of fracture or dislocation. No osseous erosion. Nail bed/soft tissue injury of the firstdistal tuft. IMPRESSION: No evidence of fracture or dislocation. No radiographic evidence of osteomyelitis WSN: [id number] Ordering Physician: Lamberto Smith Dictated By: Brenton Frank MD Dictated Date/Time: 05/02/22 8:23 am Reviewed By: Brenton Frank MD Signed By: Brenton Frank MD Signed Date/Time: 05/02/22 8:23 am Transcribed By: ANDREAS Transcribed Date/Time: 05/02/22 8:21 am Vital Signs Most recent to oldest [Reference Range]: 1 2 Oxygen Saturation [94-100 %] 97 % 100 % (05/02/22 1:42 AM) (05/02/22 1:33 AM) Pulse Rate [55-90 bpm] 78 bpm 86 bpm (05/02/22 1:42 AM) (05/02/22 1:33 AM) Blood Pressure [90-138/55-84 mm Hg] 137/91 mm Hg (05/02/22 1:42 AM) Respiratory Rate [16-30 br/min] 18 br/min 18 br/mi n (05/02/22 1:42 AM) (05/02/22 1:33 AM) Temperature [96.8-100.4 DegF] 98.4 DegF (05/02/22 1:42 AM) Mode of Delivery (Oxygen) Room air Room air (05/02/22 1:42 AM) (05/02/22 1:33 AM) Blood pressure sites Arm, right (05/02/22 1:42 AM) Temperature Route Oral (05/02/22 1:42 AM) Social History Social History Type Response Tobacco Use: 4 or less cigarettes(le ss than 1/4 pack)/day in last 30 days. Interested in cessatio n: No. Yes Sex
--- OUTSIDE RECORDS SUMMARY | 2022-08-01 16:10 | XMS_ITS | Continuity of Care Document ---
:1975 Author Organization [facility] Address [address] [place] [address]- Care Team Providers Name Role Phone Rin Leal MD Primary Care Physician [place] [facility] [place] - 12/29/[address] [address]- Discharge Disposition: A-D/C Home Attending Physician: Lamberto Smith MD Admitting Physician: Lamberto Smith MD Referring Physician: Not on Staff, Referring [...] 11/14/21 12:03:00 EST, Route to Pharmacy Electronically, [facility], Partial fill upon patient request if the prescription is for a schedule II opioid... Start Date: 11/14/21 Stop Date: 12/14/21 Status: Orderedgabapentin 300 mg oral capsule 300 mg, 1, capsule, By Mouth, 3 times a day, # 90 capsule, Refills 0, Tot. Refills 0, Maintenance, 11/14/21 11:53:00 EST, Route to Pharmacy Electronically, [facility], Partial fill upon patient request [...] 170 mg, Solution, By Mouth, Once, STAT, 12/28/21 21:47:00 EST, Stop date 12/28/21 21:47:00 EST Start Date: 12/28/21 Stop Date: 12/28/21 Status: CompletedMiraLax Powder 1 pack/packet = 17 Gm, By [...] 11/14/21 11:53:00 EST, Route to Pharmacy Electronically, [facility], Partial fill upon patient request if the prescription... Start Date: 11/14/21 Stop Date: 12/14/21 Status: Orderedsertraline 100 mg oral tablet 1 tablet = 100 mg, By Mouth, Daily, # 30 tablet, 0 Refills, Maintenance, 11/14/21 11:52:00 EST, Tablet, [facility], Partial fill upon patient request [...] 2 3 Range]: Oxygen Saturation [94-100 %] 96 % 100 % (12/29/21 6:40 AM) (12/28/21 8:59 PM) Pulse Rate [55-90 bpm] 68 bpm 69 bpm (12/29/21 6:40 AM) (12/28/21 8:59 PM) Blood Pressure [90-138/55-84 mm 102/60 mm Hg 113/59 mm Hg Hg] (12/29/21 6:40 AM) (12/28/21 8:59 PM) Respiratory Rate [16-30 br/min] 20 br/min 20 br/min 18 br/min (12/29/21 6:40 AM) (12/28/21 11:20 PM) (12/28/21 8:59 PM) Temperature [96.8-100.4 DegF] 98.0 DegF 97.7 DegF (12/29/21 6:40 AM) (12/28/21 8:59 PM) Mode of Delivery (Oxygen) Room air Room air (12/29/21 6:40 AM) (12/28/21 8:59 PM) Temperature Route Oral Oral (12/29/21 6:40 AM) (12/28/21 8:59 PM) Social History Social History Type Response Tobacco Use: 4 or less cigarettes(le ss than 1/4 pack)/day in last 30 days. Interested in cessatio n: No. Yes Sex
--- OUTSIDE RECORDS SUMMARY | 2022-08-01 16:10 | XMS_ITS | Continuity of Care Document ---
:1975 Author Organization [facility] Address [address] [place] [address]- Care Team Providers Name Role Phone Not on Staff, PCP Primary Care Physician Unavailable [facility] [place] [place] Date(s): 03/14/20 - 03/14/20 [facility] [address] [place] [address] [facility] Encounter Diagnosis Acute alcoholic intoxication (Final) - 03/14/20 Discharge Disposition: A-D/C Home Attending Physician: Zeb RETANA, Blessing Martin Admitting Physician: Zeb RETANA, Blessing Martin Referring Physician: Not on Staff, Referring MD [...] 0 Refills, Soft Stop, 03/01/20 5:30:00 EDT, [facility], 178, cm, 07/13/19 21:13:00 EDT, Height, 80.6, kg, 08/31/19 4:34:00 Dr.. TALIB. Start Date: 03/01/20 Status: OrderedNeurontin 100 mg oral capsule 100 mg, 1, capsule, By Mouth, 3 times a day, # 21 capsule, Refills 0, Tot. Refills 0, Maintenance, 07/14/19 11:31:58 EDT, Route to Pharmacy Electronically, [id number], [facility] Start Date: 07/14/19 Stop Date: 07/21/19 Status: Ordered Vital Signs Most recent to oldest 1 2 3 [Reference Range]: Oxygen Saturation [94-100 %] 98 % 98 % 96 % (03/14/20 12:48 PM) (03/14/20 11:29 AM) (03/14/20 5 :35 AM) Pulse Rate [55-90 bpm] 57 bpm 65 bpm 87 bpm (03/14/20 12:48 PM) (03/14/20 11:29 AM) (03/14/20 5 :35 AM) Blood Pressure [90-138/55-84 113/68 mm Hg 118/60 mm Hg 121 /83 mm Hg mm Hg] (03/14/20 12:48 PM) (03/14/20 11:29 AM) (03/14/20 5 :35 AM) Respiratory Rate [16-30 16 br/min 18 br/min 16 br/mi n br/min] (03/14/20 12:48 PM) (03/14/20 12:30 PM) (03/14/20 1 1:29 AM) Temperature [96.8-100.4 97.8 DegF 98.4 DegF DegF] (03/14/20 11:29 AM) (03/14/20 5:35 AM) Mode of Delivery (Oxygen) Room air Room air Room a ir (03/14/20 12:48 PM) (03/14/20 11:29 AM) (03/14/20 5 :35 AM) Blood pressure sites Arm, left Arm, left (03/14/20 12:48 PM) (03/14/20 11:29 AM) Temperature Route Oral Oral (03/14/20 11:29 AM) (03/14/20 5:35 AM) Social History Social History Type Response Smoking Status Current every day smoker; Ty pe: Cigarettes entered on: 07/14/18 Sex Male
--- OUTSIDE RECORDS SUMMARY | 2022-08-01 16:10 | XMS_ITS | Continuity of Care Document ---
:1975 Author Organization [facility] Address [address] [place] [address]- Care Team Providers Name Role Phone Not on Staff, PCP Primary Care Physician Unavailable [place] [facility] [place] [facility] [address] [place] [address]- Discharge Disposition: A-D/C Home Attending Physician: Sammie Johnson DO Admitting Physician: Sammie Johnson DO Referring Physician: Not on Staff, Referring [...] 07/15/20 9:02:00 EDT, Route to Pharmacy Electronically, [facility], 177.8, cm, 07/15/20 7:45:00 [...] 0 Refills, Soft Stop, 03/01/20 5:30:00 EDT, [facility], 178, cm, 07/13/19 21:13:00 EDT, Height, 80.6, kg, 08/31/19 4:34:00 Dr.. TALIB. Start Date: 03/01/20 Status: OrderedProtonix 40 mg oral delayed release tablet = 40 mg, By Mouth, 2 times a day, # 60 capsule, 0 Refills, Maintenance, 07/15/20 9:02:00 EDT, [facility] Tablet, 177.8, cm, 07/15/20 7:45:00 EDT, Height, 75, kg, 07/05/20 9:09:00 EDT, Dry Weight Start Date: 07/15/20 Status: OrderedZofran 4 mg oral tablet 1 tablet = 4 mg, By Mouth, Every 8 hours, PRN Nausea & Vomiting, # 10 tablet, 0 Refills, Maintenance, 07/15/20 11:01:00 EDT, Tablet, [facility], 177.8, cm, 07/15/20 7:45:00 [...] Most recent to oldest [Reference Range]: 1 Oxygen Saturation [94-100 %] 99 % (11/30/20 4:26 AM) Pulse Rate [55-90 bpm] 63 bpm (11/30/20 4:26 AM) Blood Pressure [90-138/55-84 mm Hg] 100/55 mm Hg (11/30/20 4:26 AM) Respiratory Rate [16-30 br/min] 18 br/min (11/30/20 4:26 AM) Temperature [96.8-100.4 DegF] 99.1 DegF (11/30/20 4:26 AM) Mode of Delivery (Oxygen) Room air (11/30/20 4:26 AM) Blood pressure sites Arm, left (11/30/20 4:26 AM) Temperature Route Oral (11/30/20 4:26 AM) Social History Social History Type Response Smoking Status Current every day smoker; Ty pe: Cigarettes entered on: 07/14/18 Sex
--- OUTSIDE RECORDS SUMMARY | 2022-08-01 16:10 | XMS_ITS | Continuity of Care Document ---
:1975 Author Organization [facility] Address [address] [place] [address]- Care Team Providers Name Role Phone Rin Leal MD Primary Care Physician En[place] [facility] [place] Date(s): 06/07/22 - 06/07/[address] [address]- Discharge Disposition: A-D/C Walkout Attending Physician: Not [...] 11/14/21 12:03:00 EST, Route to Pharmacy Electronically, [facility], Partial fill upon patient request if the prescription is for a schedule II opioid... Start Date: 11/14/21 Stop Date: 12/14/21 Status: Orderedgabapentin 300 mg oral capsule 300 mg, 1, capsule, By Mouth, 3 times a day, # 90 capsule, Refills 0, Tot. Refills 0, Maintenance, 11/14/21 11:53:00 EST, Route to Pharmacy Electronically, [facility], Partial fill upon patient [...] 11/14/21 11:53:00 EST, Route to Pharmacy Electronically, [facility], Partial fill upon patient request if the prescription... Start Date: 11/14/21 Stop Date: 12/14/21 Status: Orderedsertraline 100 mg oral tablet 1 tablet = 100 mg, By Mouth, Daily, # 30 tablet, 0 Refills, Maintenance, 11/14/21 11:52:00 EST, Tablet, [facility], Partial fill upon patient request [...] %] 98 % 99 % 100 % (06/07/22 2:48 PM) (06/07/22 12:35 PM) (06/07/22 10 :44 AM) Pulse Rate [55-90 bpm] 58 bpm 70 bpm 63 bpm (06/07/22 2:48 PM) (06/07/22 12:35 PM) (06/07/22 10 :44 AM) Blood Pressure [90-138/55-84 100/70 mm Hg 108/68 mm Hg 113 /75 mm Hg mm Hg] (06/07/22 2:48 PM) (06/07/22 12:35 PM) (06/07/22 10 :44 AM) Respiratory Rate [16-30 18 br/min 16 br/min br/min] (06/07/22 2:48 PM) (06/07/22 12:35 PM) Temperature [96.8-100.4 DegF] 98.3 DegF 98.4 DegF 97 .0 DegF (06/07/22 2:48 PM) (06/07/22 12:35 PM) (06/07/22 10 :44 AM) Mode of Delivery (Oxygen) Room air Room air Room a ir (06/07/22 2:48 PM) (06/07/22 12:35 PM) (06/07/22 10 :44 AM) Blood pressure sites Arm, right Arm, right Arm, left (06/07/22 2:48 PM) (06/07/22 12:35 PM) (06/07/22 10 :44 AM) Temperature Route Oral Oral Temporal (06/07/22 2:48 PM) (06/07/22 12:35 PM) (06/07/22 10 :44 AM) Social History Social History Type Response Tobacco Use: 4 or less cigarettes(le ss than 1/4 pack)/day in last 30 days. Interested in cessatio n: No. Yes Sex
--- OUTSIDE RECORDS SUMMARY | 2022-08-01 16:11 | XMS_ITS ---
:[address] [facility] Address [address], [place] [id number] Care Team Providers Name Role Phone Rico Matos Unavailable Unavailable Arielle Villarreal Unavailable [phone] PROBLEMS Type Condition ICD9-CM RIA09-OM Onset Condition SNOMED Cod e Code Code Dates Status Problem Cocaine abuse, F14.10 Active 71743 003 uncomplicated Problem Chronic viral B18.2 Active 244365 006 hepatitis C Problem Body mass index Z68.25 Active 1628 38051 (BMI) 25.0-25.9, adult Problem Opioid abuse with F11.19 Active 44 6481653 unspecified opioid-induced disorder Problem Bipolar disorder, F31.30 Active 49 453735 current episode depressed, mild or moderate severity, unspecified Problem Hepatic fibrosis K74.0 Active 624 96473 Problem Anxiety disorder F06.4 Active 174 15605 due to known physiological condition Problem Long QT syndrome I45.81 Active 965 1007 Problem Sheltered Z59.01 Active 2747692377 30280 homelessness Problem Hepatic failure, K72.90 Resolved 599 13492 unspecified without coma Problem Gastro-esophageal K21.9 Active 26 9187742 reflux disease without esophagitis Problem Dependence on Z99.89 Active 276498 005 other enabling machines and devices Problem Intermittent F63.81 Active 6034972 4 explosive disorder Problem Nicotine F17.210 Active 016424504 dependence, cigarettes, uncomplicated Problem Alcohol abuse F10.182 Active with alcohol-induced sleep disorder Problem Insomnia due to F51.05 Active 2412 1004 other mental disorder ALLERGIES Substance Reaction Event Type Date Status Morphine Makes Jaw feel funny Non Drug Allergy Jul, Act akbar Vicodine Itching Non Drug Allergy Jul, Active Tegratol Psychosis Non Drug Allergy Jul, Active ENCOUNTERS Encounter Location Date Diagnosis [address] Jul, [place], [place] [id number] [address] Jun, [place], [place] [id number] [address] May, [place] [id number] [address] Apr, [place] [id number] [address] 27 Mar, 2022 [facility] for [facility] [place] [id number] [address] Mar, [place] [id number] [address] Mar, [place] [id number] [address] Mar, Lower abdominal pain, [place] unspecified R10. [id number] Mar, Opioid abuse with [place] unspecified opio id-induced [address]6865[address] disorder F11.19 ; Unspecified abdo hao pain R10.9 ; Bipolar disorder, current episode depressed, mild or moderate severity, unspecified F31. 30 ; Chronic viral he patitis C B18.2 ; Anxiety disorder due to known phy siological condition F06.4 ; Alcohol abuse with alcoh ol-induced sleep disorder F 10.182 and Heartburn R12 [address] Mar, [place], [place] [id number] [address] February, Chroni c viral hepatitis C [place] B18.2 ; Hepatic failure, 146449199 unspecified with out coma K72.90 ; Opioid abuse with unspecified opio id-induced disorder F11.19 ; Alcohol abuse with alcoh ol-induced sleep disorder F 10.182 ; Bipolar disorder , current episode depresse d, mild or moderate severit y, unspecified F31. 30 ; Dysuria R30.0 ; Nicotine dependence, ciga rettes, uncomplicated F1 7.210 ; Encounter for sc reening for malignant neopla sm of colon Z12.11 ; Encount er for screening for re spiratory tuberculosis Z11 .1 ; COVID-19 U07.1 ; Intermittent exp losive disorder F63.81 and Anxiety disorder due to known physiological co ndition F06.[address] 07 Jan, 2022 [place], [place] [id number] [address] Nov, Interm ittent explosive [place] disorder F63.81 ; Chronic 213703332 viral hepatitis C B18.2 and Sheltered homele ssness Z59.[address] Oct, [place], [place] [id number] [address] Oct, [place] [id number] [address] Oct, Bipola r disorder, current [place] episode depresse d, mild or [address] moderate severit y, unspecified F31. 30 ; Chronic viral he patitis C B18.2 and COVID- [address] 11 Oct, 2021 [facility] [place] [id number] [address] Oct, [place], [place] [id number] [address] Sep, [place] [id number] [address] Sep, [place] [id number] [address] Sep, Long Q T syndrome I45.81 ; [place], [place] Alcohol abuse wi th [address]67 alcohol-induced sleep disorder F10.182 and Chronic viral he patitis C B18.[address] Jul, Hepati c failure, [place], [place] unspecified with coma [id number] K72.91 ; Chronic viral hepatitis C B18. 2 ; Opioid abuse with unspe cified opioid-induced d isorder F11.19 ; Alcohol abuse with alcohol-induced sleep disorder F10.182 ; Nicotine dependence, ciga rettes, uncomplicated F1 7.210 ; Immunization not carried out because of p atient decision for uns pecified reason Z28.20 ; Dysuria R30.0 ; Intermit tent explosive disord er F63.81 and High risk he terosexual behavior Z72.[address] Jul, [place], [place] [id number] [address] Jul, [place] [id number] [address] Jul, [place] [id number] [address] Jul, [place] [id number] [address] 16 Jun, 2021 [place], [place] [id number] [address] 13 Jun, 2021 [place] [id number] [address] May, [place] [id number] [address] Apr, [place] [id number] [address] Mar, [place] [id number] [address] Mar, [place] [id number] [address] Nov, [place] [id number] [address] Nov, [place] [id number] [address] Nov, [place] [id number] [address] Oct, Hepati c failure, [place], [place] unspecified with coma 2173[address]653 K72.91 and Chron ic viral hepatitis C B18. [address] Sep, [place], [place] [id number] [address] Aug, [place] [id number] [address] Aug, [place] [id number] [facility] [address] [place] [address] Aug, Homeless [place] [id number] [address] Aug, [place] [phone] [facility] [address] [place] [address] Jul, Anxiety disor claire due to [facility] known physio logical [facility] [place], condition F06.4 and Chronic [place] [id number] viral hepatitis C B18.[address] Jul, [place], [place] [id number] [address] Jul, Hepati c failure, [place], [place] unspecified with coma [id number] K72.91 ; Chronic viral hepatitis C B18. 2 ; Nausea R11.0 ; Pain in right leg M79.604 ; Anxiet y disorder due to known phy siological condition F06.4 and Long QT syndrome I45.81 [facility] [address] [place] [address] 30 Jun, 2020 Chronic viral hepatitis C [facility] B18.2 ; Naus ea R11.0 and [facility] [place], Hepatic fa falguni ANDREA [id number] unspecified with coma K72.91 [facility] [address] [place] [address] 28 Jun, 2020 Nausea R11.0 ; Chronic [facility] viral hepati tis C B18.2 and [facility] [place], Hepatic fa shanibimal ANDREA [id number] unspecified with coma K72.[address] Jun, 2019 [place] [id number] [address] Jun, [place] [id number] [facility] [address] [place] [address] 24 Jun, 2020 Homeless [place] [id number] [facility] [address] [place] [address] 23 Jun, 2020 Opioid abuse with [facility] unspecified opioid-induced [facility] [place], disorder F 11.19 ; Chronic [place] [id number] viral hepatitis C B18.2 ; Dependence on ot her enabling machine s and devices Z99.89 ; Nausea R11.0 ; Tinea co rporis B35.4 and Hepati c failure, unspecified with coma K72.[address] Jun, [place] [id number] [address] May, [place] [id number] [address] May, [place] [id number] [address] Apr, [place] [id number] [address] Apr, [place] [id number] [address] Mar, [place] [id number] [address] Nov, [place] [id number] [address] Oct, [place], [place] [id number] [address] Jun, [place], [place] [id number] [address] Jun, Opioid abuse with Raffaele ANDREA unspecified opio id-induced [id number] disorder F11.19 ; Phlebitis and thrombophleb itis of superficial vess els of right lower extr emity I80.01 and Bipol ar disorder, curren t episode depressed, mild or moderate severity, unspec ified F31.[address] Jun, Cellul itis of left lower [place] limb L03.116 ; F uruncle, [id number] unspecified L02. 92 ; Traumatic hemorr kymberly of cerebrum, unspec ified, without loss of consciousness, i nitial encounter S06.36 0A ; Homelessness Z59 .0 ; Pain in left foot M79 .672 ; Pain in left lower le g M79.662 and Chronic praveen l hepatitis C B18.2 [facility] [address] [place] [address] Jun, 2019 [place] [id number] [facility] [address] [place] [address] May, 2019 Hom[place] [id number] [address] Nov, Unspec ified injury of face, [place] ANDREA initial encounte r S09.93XA [id number] ; Bipolar disord er, current episode depresse d, mild or moderate severit y, unspecified F31. 30 ; Opioid abuse with unspe cified opioid-induced d isorder F11.19 and Chron ic viral hepatitis C B18. [address] Nov, [place] [id number] [address] Sep, Lacera tion with foreign ANDREA [place] body, unspecifie d hip, [id number] initial encounte r S71.029A [address] Jul, Acute nasopharyngitis ANDREA [place] [common cold] J0 [id number] Jul, Chroni c viral hepatitis C ANDREA [place] B18.2 and Other specified [address] disorders of the skin and subcutaneous tis ej L98.8 [place] [id number] [facility] Jul, Other specified disorders [place] of the skin and [address] subcutaneous tis ej L98.[address] Jul, [place], [place] [id number] [address] Aug, Abnorm al results of liver [place] function studies R94.5 ; [id number] Homelessness Z59 .0 and Tinea unguium B3 5.[address] 30 Jul, 2017 Homelessness Z59.0 ; Tinea [facility] [place] unguium B3 5.1 and Encounter [id number] for general adul t medical examination with abnormal findings Z00.01 [facility] Jun, Services [address] [place] [id number] IMMUNIZATIONS Vaccine Route Administration Date Status Tdap Unknown Aug 30, 2019 Administered SOCIAL HISTORY Qualifiers Date Current Smoker REASON FOR REFERRAL Reason Pt-1 done for pt to [facility] clin ic 3 visitsmonth x [address] [facility] Referring Provider First Name [facility] Referring Provider [facility] Referring Provider Specialty Family Practice Referring Provider Referred Provider PT, -1 Reason Physical Therapy Evaluation Referral Organization [facility] Referring Provider First Name [facility] Referring Provider Last Name [facility] Referring Provider Specialty Family Practice Referring Provider FUNCTIONAL STATUS PLAN OF CARE Activity Details Referral Pt-1 done for pt to [facility] clin ic 3 visitsmonth x 12 months, -1 PT Referral Physical Therapy Evaluation Pending Test ACETAMINOPHEN LEVEL Pending Test CBC WITH AUTO DIFF Pending Test COMPREHENSIVE METABOLIC PANE L Pending Test SALICYLATE LEVEL Pending Test FECAL GLOBIN BY IMMUNOCHEMIS TRY Pending Test CHLAMYDIA / GC DNA W RFLX Pending Test URINALYSIS Pending Test URINE CULTURE Pending Test QUANTIFERON(R)-TB GOLD PLUS, 1 TUBE Pending Test FECAL GLOBIN BY IMMUNOCHEMIS TRY Pending Test US Liver Pending Test COMPREHENSIVE METABOLIC PANE L-[facility] Pending Test CHLAMYDIA/N. GONORRHOEAE RNA , TMA Pending Test CHLAMYDIA / GC DNA W RFLX Pending Test CBC (H/H, RBC, INDICES, WBC, PLT) Pending Test COMPREHENSIVE METABOLIC PANE L-[facility] Pending Test PROTHROMBIN TIME-INR Pending Test MAGNESIUM Pending Test AMMONIA (NH3) Pending Test CBC WITH AUTO DIFF Pending Test COMPREHENSIVE METABOLIC PANE L Pending Test LIVER FIBROSIS PANEL Pending Test PT/INR Pending Test CBC (INCLUDES DIFF/PLT) AUTO DIFF - NO PATH REVIEW Pending Test COMPREHENSIVE METABOLIC PANE L[facility] Pending Test HEPATITIS C VIRAL RNA, QN RE AL TIME PCR W/REFLS Pending Test LIVER FIBROSIS, FIBROTEST AC TITEST PANEL Pending Test LIPID PANEL, NONFASTING W/O TRIGLYCERIDES Pending Test US Duplex Venous Study LT Pending Test HEPATITIS B SURFACE AB IMMUN ITY, QN VITAL SIGNS Height 70 in 2022-04-05 Weight 170.2 lbs 2022-04-05 BMI 24.42 kg/m2 2022-04-05 Oximetry 98 2022-04-05 Temperature 96.7 degrees Fahrenheit 2022-04-05 Respiratory Rate 20 /min 2022-03-13 Blood pressure systolic 115 2022-03-13 Blood pressure diastolic 75 2022-03-13 MEDICATIONS Medication Instructions Dosage Frequency Start End Duration Statu s Date Date Latuda 40 mg orally once a 1 tab(s) 24h Oct, days Acti ve day 2021 acamprosate 333 orally 3 times a 2 tab(s) 8h 30 day s Active mg day omeprazole 20 mg orally once a 1 cap(s) 24h Active day Nicotrol Inhaler By Mouth Q2 hrs 1 cartridge Jul, days Active 10mg prn cravings 2020 Mavyret 100 orally once a 3 tab(s) 24h 09 March, Activ e mg-40 mg day 2021 lorazepam 1 mg orally daily prn 1 tab(s) February, days Active panic attack - 2021 max 10 tabs per month methadone 10 mg orally once a 180mg 24h 15 Jun, Ac tive day 2018 doxycycline orally 2 times a 1 cap(s) 12h Ac tive hyclate 100 mg day multivitamin orally once a 1 tab(s) 24h 28 days Acti ve Multiple day Vitamins gabapentin 400 orally 3 times a 1 cap(s) Mar, days Active mg day. Start 202103/29/22 PROCEDURES Procedure Date Ordered Result Body Site CLINIC VST/ENCOUNTER ALL-INCLUSIVE Aug 11, 2018 CLINIC VST/ENCOUNTER ALL-INCLUSIVE Jul 20, 2019 CLINIC VST/ENCOUNTER ALL-INCLUSIVE Oct 14, 2018 CLINIC VST/ENCOUNTER ALL-INCLUSIVE Nov 20, 2021 NFAC PHONE E/M BY PHYS 21-30 MIN Jul 20, 2020 CLINIC VST/ENCOUNTER ALL-INCLUSIVE Jul 16, 2019 VENIPUNCT, ROUTINE* Aug 15, 2020 CLINIC VST/ENCOUNTER ALL-INCLUSIVE March 13, 2022 SPECIMEN HANDLING Aug 23, 2021 CLINIC VST/ENCOUNTER ALL-INCLUSIVE Aug 23, 2021 NFAC PHONE E/M BY PHYS -Aug 24, 2020 -ELECTROCARDIOGRAM, COMPLETE Oct 16, 2021 CLINIC VST/ENCOUNTER ALL-INCLUSIVE Aug 25, 2018 SPECIMEN HANDLING Aug 05, 2018 VENIPUNCT, ROUTINE* Aug 05, 2018 VENIPUNCT, ROUTINE* Aug 23, 2021 CLINIC VST/ENCOUNTER ALL-INCLUSIVE Jul 27, 2020 -ELECTROCARDIOGRAM, COMPLETE Jul 20, 2019 CLINIC VST/ENCOUNTER ALL-INCLUSIVE Dec 24, 2018 CLINIC VST/ENCOUNTER ALL-INCLUSIVE Nov 16, 2020 SPECIMEN HANDLING Sep 02, 2017 CLINIC VST/ENCOUNTER ALL-INCLUSIVE Dec 25, 2021 CLINIC VST/ENCOUNTER ALL-INCLUSIVE Aug 15, 2020 VENIPUNCT, ROUTINE* Sep 02, 2017 VENIPUNCT, ROUTINE* Aug 26, 2017 NFAC PHONE E/M BY PHYS 21-30 MIN Jul 25, 2020 EKG 2019-07-25 QTC 434 NSR CLINIC VST/ENCOUNTER ALL-INCLUSIVE April 03, 2022 -ELECTROCARDIOGRAM, COMPLETE Aug 15, 2020 VENIPUNCT, ROUTINE* Aug 11, 2018 DRUG TEST PRSMV DIR OPT OBS Jul 20, 2019 CLINIC VST/ENCOUNTER ALL-INCLUSIVE April 05, 2022 CHRON CARE MGMT SRVC 20 MIN Jul 20, 2020 CLINIC VST/ENCOUNTER ALL-INCLUSIVE Sep 02, 2017 SPECIMEN HANDLING Aug 26, 2017 CLINIC VST/ENCOUNTER ALL-INCLUSIVE Aug 05, 2018 CLINIC VST/ENCOUNTER ALL-INCLUSIVE Oct 16, 2021 SPECIMEN HANDLING Aug 15, 2020 SPECIMEN HANDLING April 03, 2022 SPECIMEN HANDLING Aug 11, 2018 CLINIC VST/ENCOUNTER ALL-INCLUSIVE Aug 26, 2017 RESULTS Name Result Date Reference Range URINE DRUG SCREEN 2022-04-03 AMPHETAMINE, URINE NONE DETECTED ND BARBITURATES, URINE NONE DETECTED ND BENZODIAZEPINE, URINE NONE DETECTED ND COCAINE, URINE POSITIVE ND OPIATES, URINE POSITIVE ND MARIJUANA (THC), URINE NONE DETECTED ND UA WITH CULTURE IF INDICATED 2022-04-03 BACTERIA, URINE LIGHT NEGATIVE BILIRUBIN, URINE SMALL NEGATIVE BLOOD, URINE TRACE NEGATIVE HYALINE CAST, URINE 3 0-3 CRYSTALS, URINE HEAVY OLIVIER URATES EPITH CELLS, URINE 20 0-60 GLUCOSE, (UA) NEGATIVE NEGATIVE KETONE, URINE TRACE NEGATIVE LEUKOCYTE ESTERASE, URINE NEGATIVE NEGATI VE NITRITE, URINE NEGATIVE NEGATIVE PH, URINE 6.0 5.0-8.0 PROTEIN, URINE 100 <= TRACE RBC, URINE 10 0-4 SPECIFIC GRAVITY, URINE 1.030 1.003-1. 030 UROBILINOGEN, URINE 1.0 0.2-1.0 WBC, URINE 4 0-4 CBC 2022-03-13 HEMATOCRIT 44.1 42-54 HEMOGLOBIN 14.5 13.5-17.5 MCH 31.5 27-32 MCHC 32.9 32-37 MCV 95.9 79-98 MEAN PLATELET VOLUME 10.0 7-11 NRBC # AUTO 0.00 <0.1 NRBC % AUTO 0.0 <1 PLT COUNT 274 130-400 RBC 4.6 4.5-5.5 RDW 13.2 11-15 WBC 7.9 4.8-10.8 COMPREHENSIVE METABOLIC PANEL 2022-03-13 ALBUMIN 4.1 3.2-5.0 ALK PHOS 112 42-121 SGPT 165 10-60 ANION GAP 8 3-11 SGOT 133 10-42 BILI,TOTAL 0.7 0.0-1.4 BUN 15 5-25 CALCIUM 9.3 8.5-10.5 CHLORIDE 104 96-110 CO2 26 21-32 CREAT 1.00 0.7-1.3 GLOMERULAR FILTRATION RATE > 60 GLUCOSE 87 70-100 POTASSIUM 3.9 3.5-5.5 SODIUM 138 135-145 TOTAL PROTEIN 8.0 6.0-8.0 HIV 1 AND 2 ANTIBODY SCREEN 2022-03-13 HIV 1 AND 2 SCREEN NEGATIVE NEGATIVE PT/INR 2022-03-13 INR 1.01 PROTHROMBIN TIME 11.8 10.6-13.9 TREPONEMAL AB 2022-03-13 TREPONEMAL AB NEGATIVE NEGATIVE TSH CASCADE 2022-03-13 TSH CASCADE 5.57 0.40-4.00 FREE T4 CASCADE 2022-03-13 FREE T4 CASCADE 1.09 0.70-1.80 CHLAMYDIA DNA URINE 2021-08-24 CHLAMYDIA DNA URINE NEGATIVE NEGATIVE GC DNA URINE 2021-08-24 GC DNA URINE NEGATIVE NEGATIVE HIV 1/2 ANTIGEN/ANTIBODY,FOURTH 2021-08-23 GENERATION W/RFL HIV AG/AB, 4TH GEN NON-REACTIVE NON-REACTIVE COMPREHENSIVE METABOLIC PANEL-[facility] 2021-08-23 GLUCOSE 106 65-99 UREA NITROGEN (BUN) 14 7-25 CREATININE 0.88 0.60-1.35 eGFR NON-AFR. BELARUSIAN 102 > OR = 60 eGFR 118 > OR = 60 BUN/CREATININE RATIO NOT APPLICABLE 6-22 SODIUM 139 135-146 POTASSIUM 4.2 3.5-5.3 CHLORIDE 104 98-110 CARBON DIOXIDE 24 20-32 CALCIUM 9.4 8.6-10.3 PROTEIN, TOTAL 7.6 6.1-8.1 ALBUMIN 4.3 3.6-5.1 GLOBULIN 3.3 1.9-3.7 ALBUMIN/GLOBULIN RATIO 1.3 1.0-2.5 BILIRUBIN, TOTAL 0.6 0.2-1.2 ALKALINE PHOSPHATASE 86 36-130 AST 78 10-40 ALT 83 9-46 RPR (DX) W/REFL TITER AND CONFIRMATORY 2021-07-29 7 TESTING RPR (DX) W/REFL TITER AND CONFIRMATORY NON-REACTIVE NON-REACTIVE TESTING HEPATITIS C VIRAL RNA GENOTYPE, LIPA(R) HEPATITIS C VIRAL RNA GENOTYPE, LIPA 3 TRICHOMONAS VAGINALIS RNA QUALITATIVE 2021-08-23 TMA, MALES TRICHOMONAS VAGINALIS RNA QUALITATIVE TNP TMA, MALES LIVER FIBROSIS, FIBROTEST ACTITEST PANEL 2021-07 FIBROSIS SCORE 0.71 FIBROSIS STAGE F3 FIBROSIS INTERPRETATION SEE NOTE NECROINFLAMMAT ACT SCORE 0.65 NECROINFLAMMAT ACT GRADE A3 NECROINFLAMMAT INTERP SEE NOTE REFERENCE ID [id number] FOOTNOTE SEE NOTE TOTAL BILIRUBIN 0.6 0.2-1.2 GGT 106 3-95 ALT 86 9-46 ALPHA 2 MACROGLOBULIN 368 106-279 HAPTOGLOBIN 60 43-212 APOLIPOPROTEIN A1 159 94-176 HEPATITIS C AB W/RFL RNA, PCR W/RFL 2021-08-23 GENOTYPE,LIPA HEPATITIS C ANTIBODY REACTIVE NON-REACTIV E INDEX 19.80 <1.00 HCV RNA, QN PCR W/REFL TO GENOTYPE, 2021-08-23 LIPA(R) HCV RNA, QUANTITATIVE REAL TIME PCR [id number] NOT DETECTED HCV RNA, QUANTITATIVE REAL TIME PCR 6.54 NOT DETECTED COMMENT TRICHOMONAS 2021-08-[address] SEEN NEGATIVE CT Brain WO 2021-07-07 CBC (H/H, RBC, INDICES, WBC, PLT) 2020-08-15 WHITE BLOOD CELL COUNT 6.5 3.8-10.8 RED BLOOD CELL COUNT 3.79 4.20-5.80 HEMOGLOBIN 12.4 13.2-17.1 HEMATOCRIT 37.2 38.5-50.0 MCV 98.2 80.0-100.0 MCH 32.7 27.0-33.0 MCHC 33.3 32.0-36.0 RDW 14.4 11.0-15.0 PLATELET COUNT 206 140-400 MPV 11.4 7.5-12.5 COMPREHENSIVE METABOLIC PANEL-[facility] 2020-08-15 GLUCOSE 82 65-139 UREA NITROGEN (BUN) 9 7-25 CREATININE 0.75 0.60-1.35 eGFR NON-AFR. BELARUSIAN 109 > OR = 60 eGFR 127 > OR = 60 BUN/CREATININE RATIO NOT APPLICABLE 6-22 SODIUM 134 135-146 POTASSIUM TNP CHLORIDE 98 98-110 CARBON DIOXIDE 25 20-32 CALCIUM 9.0 8.6-10.3 PROTEIN, TOTAL 7.7 6.1-8.1 ALBUMIN 3.8 3.6-5.1 GLOBULIN 3.9 1.9-3.7 ALBUMIN/GLOBULIN RATIO 1.0 1.0-2.5 BILIRUBIN, TOTAL 1.1 0.2-1.2 ALKALINE PHOSPHATASE 128 36-130 ALT 49 9-46 D-DIMER, QUANTITATIVE 2020-08-15 D-DIMER, QUANTITATIVE 1.98 <0.50 PROTHROMBIN TIME-INR 2020-08-15 PT 11.2 9.0-11.5 INR 1.1 US Duplex Venous Study RT 2020-08-17 LIPID PROFILE 2020-07-26 CHOLESTEROL 83 0-200 HDL CHOLESTEROL 39 >40 LDL CALCULATED 27 0-100 TC-HDLC RATIO 2.1 0-4.4 TRIGLYCERIDES 89 0-150 AMMONIA (NH3) 2020-07-26 AMMONIA (NH3) 38 11-35 CBC WITH AUTO DIFF 2020-07-26 BASO # 0.03 0-0.2 BASO % 0.8 EOS # 0.08 0-0.5 EOS % 2.2 HEMATOCRIT 32.2 42-54 HEMOGLOBIN 10.6 13.5-17.5 IMMATURE GRANULOCYTES % 0.6 IMMATURE GRANULOCYTES # 0.02 0-0.03 LYMPH # 1.44 1-5.0 LYMPH % 40.0 MCH 34.1 27-32 MCHC 32.9 32-37 MCV 103.5 79-98 MONO # 0.46 0.2-1.0 MONO % 12.8 MEAN PLATELET VOLUME 11.2 7-11 ABSOLUTE NEUT 1.57 1.5-7.0 NEUT % 43.6 NRBC # AUTO 0.00 <0.1 NRBC % AUTO 0.0 <1 PLT COUNT 157 130-400 RBC 3.1 4.5-5.5 RDW 17.1 11-15 WBC 3.6 4.8-10.8 COMPREHENSIVE METABOLIC PANEL 2020-07-26 ALBUMIN 3.1 3.2-5.0 ALK PHOS 127 42-121 SGPT 66 10-60 ANION GAP 7 3-11 SGOT 77 10-42 BILI,TOTAL 1.6 0.0-1.4 BUN 9 5-25 CALCIUM 8.8 8.5-10.5 CHLORIDE 105 96-110 CO2 26 21-32 CREAT 0.83 0.7-1.3 GLOMERULAR FILTRATION RATE > 60 GLUCOSE 69 70-100 POTASSIUM 3.7 3.5-5.5 SODIUM 138 135-145 TOTAL PROTEIN 6.9 6.0-8.0 LIVER FIBROSIS PANEL 2020-07-26 BGVHH-8-SIGSMHKWHTTET 281 106-279 ALANINE AMINOTRANSFERASE (ALT) 47 9 -46 APOLIPOPROTEIN A1 91 94-176 LIVER FIBROSIS FOOTNOTE SEE NOTE GAMMA GLUTAMYL TRANSPEPTIDASE 134 3- 95 HAPTOGLOBIN <8 43-212 LIVER FIBROSIS INTERPRETATION SEE NOTE NECROINFLAMMATORY INTERPRET SEE NOTE LIVER FIBROSIS REFERENCE ID [id number] LIVER FIBROSIS SCORE 0.97 LIVER FIBROSIS STAGE F4 TOTAL BILIRUBIN 2.0 0.2-1.2 NECROINFLAMMATORY ACT GRADE A1-A2 NECROINFLAMMATORY ACT SCORE 0.50 HCV VIRAL LOAD 2020-07-26 HCV VIRAL LOAD LOG 6.51 <1.08 HCV VIRAL LOAD QUAL Detected NOT DETECT. HCV VIRAL LOAD QUANT [id number] <12 PT/INR 2020-07-26 INR 1.21 PROTHROMBIN TIME 14.1 10.6-13.9 CT Cervical Spine WO 2019-08-30 CT Brain WO 2019-08-30 Drug Toxicology 2019-07-20 CBC (H/H, RBC, INDICES, WBC, PLT) 2018-08-11 WHITE BLOOD CELL COUNT 8.3 3.8-10.8 RED BLOOD CELL COUNT 4.60 4.20-5.80 HEMOGLOBIN 15.8 13.2-17.1 HEMATOCRIT 44.5 38.5-50.0 MCV 96.7 80.0-100.0 MCH 34.3 27.0-33.0 MCHC 35.5 32.0-36.0 RDW 12.3 11.0-15.0 PLATELET COUNT 237 140-400 MPV 10.0 7.5-12.5 COMPREHENSIVE METABOLIC PANEL-[facility] 2018-08-11 GLUCOSE 96 65-99 UREA NITROGEN (BUN) 11 7-25 CREATININE 0.64 0.60-1.35 eGFR NON-AFR. BELARUSIAN 118 > OR = 60 eGFR 137 > OR = 60 BUN/CREATININE RATIO NOT APPLICABLE 6-22 SODIUM 139 135-146 POTASSIUM 4.4 3.5-5.3 CHLORIDE 104 98-110 CARBON DIOXIDE 26 20-32 CALCIUM 9.1 8.6-10.3 PROTEIN, TOTAL 7.0 6.1-8.1 ALBUMIN 4.1 3.6-5.1 GLOBULIN 2.9 1.9-3.7 ALBUMIN/GLOBULIN RATIO 1.4 1.0-2.5 BILIRUBIN, TOTAL 1.0 0.2-1.2 ALKALINE PHOSPHATASE 96 40-115 AST 265 10-40 ALT 168 9-46 PROTHROMBIN TIME-INR 2018-08-11 PT 11.7 9.0-11.5 INR 1.1 HEPATITIS B SURFACE AB IMMUNITY, QN 2018-08-11 HEPATITIS B SURFACE AB IMMUNITY, QN 1000 > OR = 10 HEPATITIS A AB, TOTAL W/REFL IGM 2018-08-11 HEPATITIS A AB, TOTAL W/REFL IGM REACTIVE NON-REACTIVE HEPATITIS A IGM NON-REACTIVE NON-REACTIVE HEPATITIS C VIRAL RNA GENOTYPE, LIPA(R) HEPATITIS C VIRAL RNA GENOTYPE, LIPA(R) 3 LIVER FIBROSIS, FIBROTEST ACTITEST PANEL 2018-07 FIBROSIS SCORE 0.57 FIBROSIS STAGE F2 FIBROSIS INTERPRETATION SEE NOTE NECROINFLAMMAT ACT SCORE 0.81 NECROINFLAMMAT ACT GRADE A3 NECROINFLAMMAT INTERP SEE NOTE REFERENCE ID [id number] FOOTNOTE SEE NOTE TOTAL BILIRUBIN 0.7 0.2-1.2 GGT 259 3-95 ALT 159 9-46 ALPHA 2 MACROGLOBULIN 263 106-279 HAPTOGLOBIN 119 43-212 APOLIPOPROTEIN A1 155 94-176 HEPATITIS C AB W/RFL RNA, PCR W/RFL 2018-08-11 GENOTYPE,LIPA HEPATITIS C ANTIBODY REACTIVE NON-REACTIV E SIGNAL TO CUT-OFF 20.90 <1.00 HCV RNA, QN PCR W/REFL TO GENOTYPE, 2018-08-11 LIPA(R) HCV RNA, QUANTITATIVE REAL TIME PCR [id number] NOT DETECTED HCV RNA, QUANTITATIVE REAL TIME PCR 6.77 NOT DETECTED COMMENT CHLAMYDIA/N. GONORRHOEAE RNA, TMA 2018-08-05 CHLAMYDIA TRACHOMATIS RNA, TMA, NOT DETECTED NOT DETECTED UROGENITAL NEISSERIA GONORRHOEAE RNA, TMA, NOT DETECTED NOT DETECTED UROGENITAL COMMENT HIV 1/2 ANTIGEN/ANTIBODY,FOURTH 2018-08-05 GENERATION W/RFL HIV AG/AB, 4TH GEN NON-REACTIVE NON-REACTIVE RPR (MONITOR) W/REFL TITER 2018-08-05 RPR (MONITOR) W/REFL TITER NON-REACTIVE NON-R EACTIVE HEPATIC FUNCTION PANEL 2017-09-02 PROTEIN, TOTAL 7.2 6.1-8.1 ALBUMIN 4.4 3.6-5.1 GLOBULIN 2.8 1.9-3.7 ALBUMIN/GLOBULIN RATIO 1.6 1.0-2.5 BILIRUBIN, TOTAL 0.4 0.2-1.2 BILIRUBIN, DIRECT 0.1 < OR = 0.2 BILIRUBIN, INDIRECT 0.3 0.2-1.2 ALKALINE PHOSPHATASE 81 40-115 AST 144 10-40 ALT 146 9-46 HEPATITIS PANEL, ACUTE W/REFLEX TO 2017-09-02 CONFIRMATION HEPATITIS A IGM NON-REACTIVE NON-REACTIVE HEPATITIS B CORE ANTIBODY (IGM) NON-REACTIVE NON-REACTIVE HEPATITIS B SURFACE ANTIGEN NON-REACTIVE NON- REACTIVE HEPATITIS C ANTIBODY REACTIVE NON-REACTIV E SIGNAL TO CUT-OFF 22.60 <1.00 HCV RNA, QUANTITATIVE REAL TIME PCR [id number] <15 HCV RNA, QUANTITATIVE REAL TIME PCR 6.79 <1.18 COMMENT PROTHROMBIN TIME-INR 2017-09-02 PT 11.2 9.0-11.5 INR 1.1 CBC (H/H, RBC, INDICES, WBC, PLT) 2017-08-26 WHITE BLOOD CELL COUNT 6.6 3.8-10.8 RED BLOOD CELL COUNT 4.92 4.20-5.80 HEMOGLOBIN 16.8 13.2-17.1 HEMATOCRIT 48.3 38.5-50.0 MCV 98.2 80.0-100.0 MCH 34.1 27.0-33.0 MCHC 34.7 32.0-36.0 RDW 13.5 11.0-15.0 PLATELET COUNT 273 140-400 MPV 8.3 7.5-12.5 HEMOGLOBIN A1c 2017-08-26 HEMOGLOBIN A1c 4.8 <5.7 LIPID PANEL 2017-08-26 TRIGLYCERIDES 123 <150 CHOLESTEROL, TOTAL 159 <200 HDL CHOLESTEROL 52 >40 LDL-CHOLESTEROL 85 CHOL/HDLC RATIO 3.1 <5.0 NON HDL CHOLESTEROL 107 <130 COMPREHENSIVE METABOLIC PANEL-[facility] 2017-08-26 GLUCOSE 84 65-99 UREA NITROGEN (BUN) 14 7-25 CREATININE 0.74 0.60-1.35 eGFR NON-AFR. BELARUSIAN 112 > OR = 60 eGFR 130 > OR = 60 BUN/CREATININE RATIO NOT APPLICABLE 6-22 SODIUM 137 135-146 POTASSIUM 5.0 3.5-5.3 CHLORIDE 103 98-110 CARBON DIOXIDE 27 20-31 CALCIUM 9.8 8.6-10.3 PROTEIN, TOTAL 7.5 6.1-8.1 ALBUMIN 4.5 3.6-5.1 GLOBULIN 3.0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
[2022-08-01 17:55] VITALS: BP 127/76; PULSE 67; RESP 15; TEMP 36.6; O2SAT 95
[2022-08-01 17:59] LABS: Amphetamine Screen Urine Not Detected (Not Detect); Barbiturates, Urine Not Detected (Not Detect); Benzodiazepines Screen Urine Not Detected (Not Detect); Cannabinoid Screen Urine Not Detected (Not Detect); Cocaine Screen Urine POSITIVE (Not Detect); Fentanyl, urine Not Detected (Not Detect); Opiate Screen Urine Not Detected (Not Detect); Phencyclidine Screen Urine Not Detected (Not Detect)
[2022-08-01 20:12] VITALS: BP 138/83; PULSE 74; TEMP 36.7; O2SAT 96
--- NOTE | 2022-08-02 00:30 | PC.ADMIT ---
Patient is a 47 year old single Belarusian speaking male admitted as a CV admission to at 1945 and placed on 15 minute safety checks. Patient was medically cleared in the [facility] ED, evaluated by [facility]N and deemed in need of IPLOC secondary to increased depression with SI and the patient stating he had tried to kill himself with IV cocaine and heroin. Patient arrived on the unit and said I am really having alcohol withdrawals , some tremors noted. call specialist provider was notified of admission and prn Ativan x 1 was ordered and given. Patient was fairly cooperative during the admission process, but was noted to be getting sleepy after the prn Ativan. Patient was able to sign the legals. He said he doesn't have providers but does get methadone at the [facility] in [place]. Patient was somewhat guarded when discussing trauma history and said I'll talk about that tomorrow . Patient ate a snack and went to sleep. CIWA and COW evaluations were ordered. Patient has no previous admissions to .
[2022-08-02] MEDS: LORazepam 1 MG TABLET 2 MG PO ×3 (04:43→13:43)
[2022-08-02 06:00] VITALS: BP 154/88; PULSE 63; RESP 16; TEMP 37.4; O2SAT 99
[2022-08-02 07:00] VITALS: BMI 24.0
--- NOTE | 2022-08-02 09:31 | HE.PHANOTE ---
Methadone [facility] has received methadone verification from Minnie. Patient last received methadone 185 mg on 08/01 @ 0943 from [facility]. It was confirmed with Sybil at the clinic. Kya Berry, VioletaD
[2022-08-02] MEDS: methADONE HCl 20 MG/2 ML ORAL.CONC 185 MG PO (09:43)
--- NOTE | 2022-08-02 14:01 | MHC.CLN ---
RE: CONSULT PT REPORTS 40# WT LOSS X 2 MONTHS HT 69 WT 79KG IBW 72.9KG +/-/10% PT IS 108% IBW INDICATES ADEQUATE WT FOR HT; BMI 24 WNL PT WITH NO PREVIOUS WT HX ESTIMATED NUTRITION NEEDS: 1975KCALS, 79G PROTEIN, 2200ML FLUID PT WITH HX CRACK/COCAINE/ HEROIN AND MAY BE CONTRIBUTORS TO RECENT WT LOSS DIET RX: REGULAR-APPROPRIATE MONITOR PO INTAKE CLOSELY WEEKLY WEIGHTS IF PO INTAKE POOR RECOMMEND NUTRITION SUPPLEMENT ENSURE PLUS HIGH PROTEIN BID
[2022-08-02] MEDS: Clotrimazole 1 % Cream 15 GM TUBE 1 APPL TOPICAL (14:09)
[2022-08-02] MEDS: Nicotine 21 MG PATCH.TD24 TRANSDERMA (14:33)
[2022-08-02 15:48] LABS: Alanine Aminotransferase 115 U/L (0-40); Alkaline Phosphatase 130 U/L (39-117); Anion Gap 17 (12-20); Aspartate Amino Transferase 277 U/L (5-37); Bilirubin Total 0.7 mg/dL (0.0-1.0); Blood Urea Nitrogen 13 mg/dL (9-16); Calcium 9.1 mg/dL (8.4-10.2); Carbon Dioxide 26 mmol/L (22-29); Chloride 100 mmol/L (96-108); Cholesterol 142 mg/dL; Creatinine Clr Calc Pharmacy 111.6; Estimated Glomerular Filt Rate > 60; Glucose Fasting 132 mg/dL (60-99); HDL Cholesterol 76 mg/dL; LDL Cholesterol Calculated 45 mg/dl; Potassium 4.3 mmol/L (3.3-5.1); Sodium 139 mmol/L (135-145); Total Protein 7.1 g/dL (6.5-8.0); Triglycerides 109 mg/dL
[2022-08-02 18:00] VITALS: BP 149/83; PULSE 61; RESP 16; TEMP 36.3; O2SAT 98
[2022-08-02] MEDS: LORazepam 1 MG TABLET PO (18:30)
[2022-08-02] MEDS: hydrOXYzine HCL 25 MG TABLET PO (20:59)
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
[2022-08-03 06:00] VITALS: BP 135/93; PULSE 80; RESP 16; TEMP 36.3; O2SAT 96
[2022-08-03 08:00] VITALS: PULSE 80
[2022-08-03] MEDS: Nicotine 21 MG PATCH.TD24 TRANSDERMA (08:33)
[2022-08-03] MEDS: LORazepam 1 MG TABLET PO ×2 (08:33→16:33)
[2022-08-03] MEDS: methADONE HCl 20 MG/2 ML ORAL.CONC 185 MG PO (08:34)
[2022-08-03 09:11] LABS: Estimated Average Glucose 91 mg/dL; Hemoglobin A1c % 4.8 %
[2022-08-03 09:43] LABS: Iron 80 mcg/dL (45-160); Percent Iron Saturation 26 % (15-50); Total Iron Binding Capacity 313 mcg/dL (228-428); Unsaturated Iron Binding 233 ug/dL
[2022-08-03 10:05] LABS: Folate 11.8 ng/mL (> or = 4.0); HBS Num1 > 1000.00 mIU/mL (0-7.99); HBc Num1 4.55 S/CO (0.00-0.79); HBsAGNum1 0.16 S/CO (0.00-0.99); Hepatitis A Antibody IgM 0.21 Index (0-0.79); Hepatitis B Surface Antigen Negative (Negative); Vitamin B12 753 pg/mL (200-900); ~HepC Num1 7.68 S/CO (0.00-0.79); ~Hepatitis A Antibody IgM Nonreactive (Nonreactive); ~Hepatitis B Surface Antibody REACTIVE (Nonreactive); ~Hepatitis C Antibody Reactive (Nonreactive)
[2022-08-03 10:10] LABS: TSH reflex Free T4 2.68 uIU/mL (0.32-4.0); Thyroid Stimulating Hormone 2.56 uIU/mL (0.32-4.0)
[2022-08-03 11:33] LABS: HBc Num2 4.52 S/CO; HBc Num3 4.72 S/CO; Hepatitis B Core Antibody Reactive (Nonreactive)
--- NOTE | 2022-08-03 16:50 | HO.PSYCHPN ---
Subjective Subjective Date of Service: 08/03/22 Reason For Visit: SI Subjective Notes: Conditional Voluntary Healthcare Proxy: No Guardianship: No Interim History: Pt reports feeling prepared to review medications and make some changes to improve sx mgt which was discussed. Medication Compliance: Yes Side effects from medications: No Attending Groups: No Review of Systems Acute medical concerns: No Medical Review of Systems: unchanged Mental Status Exam Mental Status Exam Patient Appearance: Fatigued Patient Orientation: Person, Place, Time and Situation Level of Consciousness: Alert Patient Behavior: Talkative and Good Eye Contact Mood Description: Depressed Affect Description: Flat Patient Cognition Impaired: No Ability to Follow Directions: Good Speech Pattern: Spontaneous Speech Memory Description: Intact Hallucinations: None Delusions: Not Present Perceptual Disturbances: Depersonalization and Derealization Thought Process: Distracted and Rumination Thought Content: positive for [place], positive for Circumstantial, positive for Tangential and positive for Suicidal Ideation Depressive Symptoms: Increased Irritability, Thoughts of /Suicide, Loss of Energy and Difficulty Concentrating Judgement: Fair Diagnostics Vital Signs (24Hr): Vital Signs - 24 hr 08/02/22 18:00 08/03/22 06:00 Temperature 97.4 F 97.4 F Pulse Rate 61 80 Respiratory Rate 16 16 Blood Pressure 149/83 H 135/93 H Pulse Oximetry 98 96 Oxygen Delivery Method Room Air Room Air BMI result Body Mass Index 24.0 Labs Results: 08/01/22 14:01 08/02/22 15:04 Labs: Laboratory Results - last 48 hr 08/01/22 08/02/22 08/03/22 17:38 15:04 08:30 Sodium 139 Potassium 4.3 Chloride 100 Carbon Dioxide 26 Anion Gap 17 BUN 13 Creatinine 0.80 Estim Creat Clear Calc 111.6 Estimated GFR > 60 Fasting Glucose 132 H Estimat Average Glucose 91 Hemoglobin A1c % 4.8 Calcium 9.1 Iron TIBC % Saturation Unsat Iron Binding Total Bilirubin 0.7 AST 277 H ALT 115 H Alkaline Phosphatase 130 H D Total Protein 7.1 Albumin 4.0 Triglycerides 109 Cholesterol 142 LDL Cholesterol, Calc 45 HDL Cholesterol 76 Vitamin B12 Folate TSH Urine Opiates Screen Not Detected Urine Fentanyl Screen Not Detected Ur Barbiturates Screen Not Detected Ur Phencyclidine Scrn Not Detected Ur Amphetamines Screen Not Detected U Benzodiazepines Scrn Not Detected Urine Cocaine Screen POSITIVE H U Marijuana (THC) Screen Not Detected Hepatitis A IgM Ab Hep Bs Antigen Hep Bs Antibody Hep B Core Total Ab Hep B Core IgM Ab Hepatitis C Ab (EIA) 08/03/22 08/03/22 08/03/22 08:30 08:30 08:30 Sodium Potassium Chloride Carbon Dioxide Anion Gap BUN Creatinine Estim Creat Clear Calc Estimated GFR Fasting Glucose Estimat Average Glucose Hemoglobin A1c % Calcium Iron 80 TIBC 313 % Saturation 26 Unsat Iron Binding 233 Total Bilirubin AST ALT Alkaline Phosphatase Total Protein Albumin Triglycerides Cholesterol LDL Cholesterol, Calc HDL Cholesterol Vitamin B12 753 Folate 11.8 TSH 2.56 2.68 Urine Opiates Screen Urine Fentanyl Screen Ur Barbiturates Screen Ur Phencyclidine Scrn Ur Amphetamines Screen U Benzodiazepines Scrn Urine Cocaine Screen U Marijuana (THC) Screen Hepatitis A IgM Ab Hep Bs Antigen Hep Bs Antibody Hep B Core Total Ab Hep B Core IgM Ab Hepatitis C Ab (EIA) 08/03/22 08:30 Sodium Potassium Chloride Carbon Dioxide Anion Gap BUN Creatinine Estim Creat Clear Calc Estimated GFR Fasting Glucose Estimat Average Glucose Hemoglobin A1c % Calcium Iron TIBC % Saturation Unsat Iron Binding Total Bilirubin AST ALT Alkaline Phosphatase Total Protein Albumin Triglycerides Cholesterol LDL Cholesterol, Calc HDL Cholesterol Vitamin B12 Folate TSH Urine Opiates Screen Urine Fentanyl Screen Ur Barbiturates Screen Ur Phencyclidine Scrn Ur Amphetamines Screen U Benzodiazepines Scrn Urine Cocaine Screen U Marijuana (THC) Screen Hepatitis A IgM Ab Nonreactive Hep Bs Antigen Negative Hep Bs Antibody REACTIVE Hep B Core Total Ab Reactive Hep B Core IgM Ab Cancelled Hepatitis C Ab (EIA) Reactive H Medications Medications Current Medications Acetaminophen (Acetaminophen 325 Mg Tablet) 650 mg PO Q6H PRN PRN Reason: Headache/Pain Mild Scale (1-3) Al Hydroxide/Mg Hydroxide (Magnesium Hydrox/Alum Hydrox 30 Ml Oral.Susp) 30 ml PO Q6H PRN PRN Reason: Heartburn/Nausea Clotrimazole (Clotrimazole 1 % Cream 15 Gm Tube) 1 appl TOPICAL BID [facility]ER; Protocol Last Admin: 08/03/22 08:35 Dose: Not Given Gabapentin (Gabapentin 300 Mg Capsule) 300 mg PO TID [facility] Hydroxyzine HCl (Hydroxyzine Hcl 25 Mg Tablet) 25 mg PO Q6H PRN PRN Reason: Anxiety Last Admin: 08/02/22 20:59 Dose: 25 mg Lorazepam (Lorazepam 1 Mg Tablet) 1 mg PO Q6H PRN PRN Reason: Alcohol Withdrawal, max 4mg Last Admin: 08/03/22 16:33 Dose: 1 mg Magnesium Hydroxide (Milk Of Magnesia 30 Ml Oral.Susp) 30 ml PO DAILY PRN PRN Reason: Constipation Methadone HCl (Methadone Hcl 20 Mg/2 Ml Oral.Conc) 185 mg PO [facility]ILY [facility] Last Admin: 08/03/22 08:34 Dose: 185 mg Multivitamins/Vitamin C (Multivitamin Tablet) 1 tab PO DAILY [facility] Nicotine (Nicotine 21 Mg Patch.Td24) 21 mg TRANSDERMA DAILY [facility] Last Admin: 08/03/22 08:33 Dose: 21 mg Quetiapine Fumarate (Quetiapine Fumarate 50 Mg Tablet) 50 mg PO BEDTIME [facility] Sertraline HCl (Sertraline Hcl 25 Mg Tablet) 25 mg PO [facility]ILY [facility] Trazodone HCl (Trazodone Hcl 50 Mg Tablet) 50 mg PO BEDTIME PRN PRN Reason: Insomnia Vitamin D (Cholecalciferol (Vitamin D3) 10 Mcg Tablet) 10 mcg PO DAILY [facility] Allergies Allergies Allergy/AdvReac Type Severity Reaction Status Date / Time carbamazepine Allergy Unknown Unknown Verified 08/01/22 12:18 hydrocodone Allergy Unknown Unknown Verified 08/01/22 12:18 morphine Allergy Unknown Unknown Verified 08/01/22 12:18 tegretol Allergy Unknown Unknown Uncoded 08/01/22 12:18 Assessment & Plan Assessment & Plan (1) Recurrent major depression-severe: Status: Acute Code(s): F33.2 - Major depressive disorder, recurrent severe without psychotic features (2) Opioid use disorder, severe, on maintenance therapy: Status: Acute Code(s): F11.20 - Opioid dependence, uncomplicated (3) Cocaine use disorder: Status: Acute Code(s): F14.10 - Cocaine abuse, uncomplicated (4) Alcohol use disorder, moderate, dependence: Status: Acute Code(s): F10.20 - Alcohol dependence, uncomplicated Plan 47 yo male, history of depression, opiate, cocaine, alcohol use disorder with an increase in depressive symptoms and recently making suicide attempts via overdose. Plan: Re-establish medications, review and change regime to address symptoms. Iron Profile, Hepatitis screen, B12, Folate, TSH, FT4, A1c Collateral contacts Referrals for out patient services. 08/03/22- Gabapentin 300 mg tid MVI 1 tab daily Sertraline 25 mg daily Seroquel 50 mg HS Hepatitis B, Core, C positive I spent minutes with the patient and/or on the patient floor today, greater than?50% of which was spent counseling/coordinating care. Patient educated on: medication risk/benefits and therapeutic strategies Informed Consent: understands and further education needed Reason for contiued inpatient stay Substantial Risk for: rapid decompensation and med/psych decompensation
[2022-08-03 18:00] VITALS: BP 128/79; PULSE 68; RESP 16; TEMP 36.8; O2SAT 99
[2022-08-03] MEDS: Gabapentin 300 MG CAPSULE PO (19:53)
[2022-08-03] MEDS: QUEtiapine Fumarate 50 MG TABLET PO (19:53)
[2022-08-04] MEDS: LORazepam 1 MG TABLET PO ×3 (06:34→21:30)
[2022-08-04] MEDS: Acetaminophen 325 MG TABLET 650 MG PO (06:34)
[2022-08-04 08:00] VITALS: PULSE 74
[2022-08-04] MEDS: methADONE HCl 20 MG/2 ML ORAL.CONC 185 MG PO (09:07)
[2022-08-04] MEDS: Multivitamin TABLET 1 TAB PO (09:09)
[2022-08-04] MEDS: Cholecalciferol (Vitamin D3) 10 MCG TABLET PO (09:09)
[2022-08-04] MEDS: Nicotine 21 MG PATCH.TD24 TRANSDERMA (09:09)
[2022-08-04] MEDS: Gabapentin 300 MG CAPSULE PO ×3 (09:09→21:16)
[2022-08-04] MEDS: Sertraline HCL 25 MG TABLET PO (09:09)
[2022-08-04 18:00] VITALS: BP 123/72; PULSE 68; TEMP 36.6; O2SAT 97
--- NOTE | 2022-08-04 22:16 | PC.NURSE ---
Pt alert and oriented, VSS, Pt seen throwing up about 30ml of brownish/orange undigested food in the handicap bathroom. Pt c/o nausea, prn maalox offered but declined and requested for drinking water instead. Provider Susanne Cheng nurse notified. No new orders given.
[2022-08-05 08:00] VITALS: BP 128/81; PULSE 70; RESP 16; TEMP 36.6; O2SAT 97
[2022-08-05] MEDS: Clotrimazole 1 % Cream 15 GM TUBE 1 APPL TOPICAL ×2 (08:29→20:33)
[2022-08-05] MEDS: methADONE HCl 20 MG/2 ML ORAL.CONC 185 MG PO (08:31)
[2022-08-05] MEDS: Cholecalciferol (Vitamin D3) 10 MCG TABLET PO (08:42)
[2022-08-05] MEDS: Gabapentin 300 MG CAPSULE PO ×3 (08:42→20:44)
[2022-08-05] MEDS: Nicotine 21 MG PATCH.TD24 TRANSDERMA (08:42)
[2022-08-05] MEDS: Multivitamin TABLET 1 TAB PO (08:42)
[2022-08-05] MEDS: Sertraline HCL 25 MG TABLET PO (08:42)
[2022-08-05] MEDS: LORazepam 1 MG TABLET PO ×2 (08:50→15:05)
[2022-08-05] MEDS: Acetaminophen 325 MG TABLET 650 MG PO ×2 (08:51→20:44)
--- NOTE | 2022-08-05 16:16 | HO.PSYCHPN ---
Subjective Subjective Date of Service: 08/04/22 Reason For Visit: SI Subjective Notes: Conditional Voluntary Healthcare Proxy: No Guardianship: No Medical Problems Affecting Mental Status: No Interim History: Reports tolerating new regime. Team report CIWA/COWS are low. Reports some interruption in sleep with a nightmare. Motrin used for back pain. Review of grounding skills to improve mgt of traumatic memory. No med changes today. Team report 1030pm pt vomited small amt of food but declined intervention. Medication Compliance: Yes Side effects from medications: No Attending Groups: Intermittent Review of Systems Acute medical concerns: No Medical Review of Systems: unchanged Mental Status Exam Mental Status Exam Patient Appearance: Fatigued Patient Orientation: Person, Place, Time and Situation Level of Consciousness: Alert Patient Behavior: Talkative and Good Eye Contact Mood Description: Depressed Affect Description: Flat Patient Cognition Impaired: No Ability to Follow Directions: Good Speech Pattern: Spontaneous Speech Memory Description: Intact Hallucinations: None Delusions: Not Present Perceptual Disturbances: Depersonalization and Derealization Thought Process: Distracted and Rumination Thought Content: positive for [place], positive for Circumstantial, positive for Tangential and positive for Suicidal Ideation Depressive Symptoms: Increased Irritability, Thoughts of /Suicide, Loss of Energy and Difficulty Concentrating Judgement: Fair Diagnostics Vital Signs (24Hr): Vital Signs - 24 hr 08/04/22 18:00 08/05/22 08:00 Temperature 97.9 F 97.9 F Pulse Rate 68 70 Respiratory Rate 16 Blood Pressure 123/72 128/81 Pulse Oximetry 97 97 Oxygen Delivery Method Room Air Room Air BMI result Body Mass Index 24.0 Labs Results: 08/01/22 14:01 08/02/22 15:04 Medications Medications Current Medications Acetaminophen (Acetaminophen 325 Mg Tablet) 650 mg PO Q6H PRN PRN Reason: Headache/Pain Mild Scale (1-3) Last Admin: 08/05/22 08:51 Dose: 650 mg Al Hydroxide/Mg Hydroxide (Magnesium Hydrox/Alum Hydrox 30 Ml Oral.Susp) 30 ml PO Q6H PRN PRN Reason: Heartburn/Nausea Clotrimazole (Clotrimazole 1 % Cream 15 Gm Tube) 1 appl TOPICAL BID COUNTS INCLUDE 234 BEDS AT THE [facility]; Protocol Last Admin: 08/05/22 08:29 Dose: 1 appl Gabapentin (Gabapentin 300 Mg Capsule) 300 mg PO TID COUNTS INCLUDE 234 BEDS AT THE [facility] Last Admin: 08/05/22 14:54 Dose: 300 mg Hydroxyzine HCl (Hydroxyzine Hcl 25 Mg Tablet) 25 mg PO Q6H PRN PRN Reason: Anxiety Last Admin: 08/02/22 20:59 Dose: 25 mg Ibuprofen (Ibuprofen 600 Mg Tablet) 600 mg PO Q8H PRN PRN Reason: back pain moderate Lorazepam (Lorazepam 1 Mg Tablet) 1 mg PO Q6H PRN PRN Reason: Alcohol Withdrawal, max 4mg Last Admin: 08/05/22 15:05 Dose: 1 mg Magnesium Hydroxide (Milk Of Magnesia 30 Ml Oral.Susp) 30 ml PO DAILY PRN PRN Reason: Constipation Methadone HCl (Methadone Hcl 20 Mg/2 Ml Oral.Conc) 185 mg PO DAILY COUNTS INCLUDE 234 BEDS AT THE [facility] Last Admin: 08/05/22 08:31 Dose: 185 mg Multivitamins/Vitamin C (Multivitamin Tablet) 1 tab PO DAILY COUNTS INCLUDE 234 BEDS AT THE [facility] Last Admin: 08/05/22 08:42 Dose: 1 tab Nicotine (Nicotine 21 Mg Patch.Td24) 21 mg TRANSDERMA DAILY COUNTS INCLUDE 234 BEDS AT THE [facility] Last Admin: 08/05/22 08:42 Dose: 21 mg Quetiapine Fumarate (Quetiapine Fumarate 50 Mg Tablet) 50 mg PO BEDTIME COUNTS INCLUDE 234 BEDS AT THE [facility] Last Admin: 08/05/22 00:34 Dose: Not Given Sertraline HCl (Sertraline Hcl 25 Mg Tablet) 25 mg PO DAILY COUNTS INCLUDE 234 BEDS AT THE [facility] Last Admin: 08/05/22 08:42 Dose: 25 mg Trazodone HCl (Trazodone Hcl 50 Mg Tablet) 50 mg PO BEDTIME PRN PRN Reason: Insomnia Vitamin D (Cholecalciferol (Vitamin D3) 10 Mcg Tablet) 10 mcg PO DAILY [facility]S INCLUDE 234 BEDS AT THE [facility] Last Admin: 08/05/22 08:42 Dose: 10 mcg Allergies Allergies Allergy/AdvReac Type Severity Reaction Status Date / Time carbamazepine Allergy Unknown Unknown Verified 08/01/22 12:18 hydrocodone Allergy Unknown Unknown Verified 08/01/22 12:18 morphine Allergy Unknown Unknown Verified 08/01/22 12:18 tegretol Allergy Unknown Unknown Uncoded 08/01/22 12:18 Assessment & Plan Assessment & Plan (1) Recurrent major depression-severe: Status: Acute Code(s): F33.2 - Major depressive disorder, recurrent severe without psychotic features (2) Opioid use disorder, severe, on maintenance therapy: Status: Acute Code(s): F11.20 - Opioid dependence, uncomplicated (3) Cocaine use disorder: Status: Acute Code(s): F14.10 - Cocaine abuse, uncomplicated (4) Alcohol use disorder, moderate, dependence: Status: Acute Code(s): F10.20 - Alcohol dependence, uncomplicated Plan 47 yo male, history of depression, opiate, cocaine, alcohol use disorder with an increase in depressive symptoms and recently making suicide attempts via overdose. Plan: Re-establish medications, review and change regime to address symptoms. Iron Profile, Hepatitis screen, B12, Folate, TSH, FT4, A1c Collateral contacts Referrals for out patient services. 08/03/22- Gabapentin 300 mg tid MVI 1 tab daily Sertraline 25 mg daily Seroquel 50 mg HS Hepatitis B, Core, C positive 08/04/22- No changes today. I spent minutes with the patient and/or on the patient floor today, greater than?50% of which was spent counseling/coordinating care. Patient educated on: medication risk/benefits and therapeutic strategies Informed Consent: understands and further education needed Reason for contiued inpatient stay Substantial Risk for: rapid decompensation
--- NOTE | 2022-08-05 16:21 | P.PNPSI_ITS ---
Subjective Subjective Date of Service: 08/05/22 Reason For Visit: SI Subjective Notes: Conditional Voluntary Healthcare Proxy: No Guardianship: No Medical Problems Affecting Mental Status: No Interim History: Pt reports he is tolerating regime. Denies SE. He does have GI sx. Team report episode of vomiting in the evening. Pt attempting to eat and accept supportive care. Review of labs. Pt reports he is scheduled to begin treatment for Hepatitis C when discharged-he has the medications at home, awaiting his return. Reports he talked with his girlfriend and she is supportive of him-which he reports makes him feel much better. Medication Compliance: Yes Side effects from medications: No Attending Groups: Intermittent Review of Systems Hep C Hx Hep B Medical Review of Systems: unchanged Mental Status Exam Mental Status Exam Patient Appearance: Fatigued Patient Orientation: Person, Place, Time and Situation Level of Consciousness: Alert Patient Behavior: Talkative and Good Eye Contact Mood Description: Depressed Affect Description: Flat Patient Cognition Impaired: No Ability to Follow Directions: Good Speech Pattern: Spontaneous Speech Memory Description: Intact Hallucinations: None Delusions: Not Present Perceptual Disturbances: Depersonalization and Derealization Thought Process: Distracted and Rumination Thought Content: positive for [place], positive for Circumstantial, positive for Tangential and positive for Suicidal Ideation Depressive Symptoms: Increased Irritability, Thoughts of /Suicide, Loss of Energy and Difficulty Concentrating Judgement: Fair Diagnostics Vital Signs (24Hr): Vital Signs - 24 hr 08/04/22 18:00 08/05/22 08:00 Temperature 97.9 F 97.9 F Pulse Rate 68 70 Respiratory Rate 16 Blood Pressure 123/72 128/81 Pulse Oximetry 97 97 Oxygen Delivery Method Room Air Room Air BMI result Body Mass Index 24.0 Labs Results: 08/01/22 14:01 08/02/22 15:04 Medications Medications Current Medications Acetaminophen (Acetaminophen 325 Mg Tablet) 650 mg PO Q6H PRN PRN Reason: Headache/Pain Mild Scale (1-3) Last Admin: 08/05/22 08:51 Dose: 650 mg Al Hydroxide/Mg Hydroxide (Magnesium Hydrox/Alum Hydrox 30 Ml Oral.Susp) 30 ml PO Q6H PRN PRN Reason: Heartburn/Nausea Clotrimazole (Clotrimazole 1 % Cream 15 Gm Tube) 1 appl TOPICAL BID [facility]; Protocol Last Admin: 08/05/22 08:29 Dose: 1 appl Gabapentin (Gabapentin 300 Mg Capsule) 300 mg PO TID [facility] Last Admin: 08/05/22 14:54 Dose: 300 mg Hydroxyzine HCl (Hydroxyzine Hcl 25 Mg Tablet) 25 mg PO Q6H PRN PRN Reason: Anxiety Last Admin: 08/02/22 20:59 Dose: 25 mg Ibuprofen (Ibuprofen 600 Mg Tablet) 600 mg PO Q8H PRN PRN Reason: back pain moderate Lorazepam (Lorazepam 1 Mg Tablet) 1 mg PO Q6H PRN PRN Reason: Alcohol Withdrawal, max 4mg Last Admin: 08/05/22 15:05 Dose: 1 mg Magnesium Hydroxide (Milk Of Magnesia 30 Ml Oral.Susp) 30 ml PO DAILY PRN PRN Reason: Constipation Methadone HCl (Methadone Hcl 20 Mg/2 Ml Oral.Conc) 185 mg PO DAILY [facility] Last Admin: 08/05/22 08:31 Dose: 185 mg Multivitamins/Vitamin C (Multivitamin Tablet) 1 tab PO DAILY [facility] Last Admin: 08/05/22 08:42 Dose: 1 tab Nicotine (Nicotine 21 Mg Patch.Td24) 21 mg TRANSDERMA DAILY [facility] Last Admin: 08/05/22 08:42 Dose: 21 mg Quetiapine Fumarate (Quetiapine Fumarate 50 Mg Tablet) 50 mg PO BEDTIME [facility] Last Admin: 08/05/22 00:34 Dose: Not Given Sertraline HCl (Sertraline Hcl 25 Mg Tablet) 25 mg PO DAILY [facility] Last Admin: 08/05/22 08:42 Dose: 25 mg Trazodone HCl (Trazodone Hcl 50 Mg Tablet) 50 mg PO BEDTIME PRN PRN Reason: Insomnia Vitamin D (Cholecalciferol (Vitamin D3) 10 Mcg Tablet) 10 mcg PO DAILY [facility] Last Admin: 08/05/22 08:42 Dose: 10 mcg Allergies Allergies Allergy/AdvReac Type Severity Reaction Status Date / Time carbamazepine Allergy Unknown Unknown Verified 08/01/22 12:18 hydrocodone Allergy Unknown Unknown Verified 08/01/22 12:18 morphine Allergy Unknown Unknown Verified 08/01/22 12:18 tegretol Allergy Unknown Unknown Uncoded 08/01/22 12:18 Assessment & Plan Assessment & Plan (1) Recurrent major depression-severe: Status: Acute Code(s): F33.2 - Major depressive disorder, recurrent severe without psychotic features (2) Opioid use disorder, severe, on maintenance therapy: Status: Acute Code(s): F11.20 - Opioid dependence, uncomplicated (3) Cocaine use disorder: Status: Acute Code(s): F14.10 - Cocaine abuse, uncomplicated (4) Alcohol use disorder, moderate, dependence: Status: Acute Code(s): F10.20 - Alcohol dependence, uncomplicated Plan 47 yo male, history of depression, opiate, cocaine, alcohol use disorder with an increase in depressive symptoms and recently making suicide attempts via overdose. Plan: Re-establish medications, review and change regime to address symptoms. Iron Profile, Hepatitis screen, B12, Folate, TSH, FT4, A1c Collateral contacts Referrals for out patient services. 08/03/22- Gabapentin 300 mg tid MVI 1 tab daily Sertraline 25 mg daily Seroquel 50 mg HS Hepatitis B, Core, C positive 08/04/22- No changes today. 08/05/22-No changes today. I spent minutes with the patient and/or on the patient floor today, greater than?50% of which was spent counseling/coordinating care. Patient educated on: medication risk/benefits, therapeutic strategies and medical condition Informed Consent: understands and further education needed Reason for contiued inpatient stay Substantial Risk for: harm to self, inability to function and med/psych decompensation
[2022-08-05 18:00] VITALS: BP 121/72; PULSE 65; RESP 18; TEMP 37.1; O2SAT 98
[2022-08-06] MEDS: hydrOXYzine HCL 25 MG TABLET PO (01:11)
[2022-08-06] MEDS: LORazepam 1 MG TABLET PO ×3 (01:11→20:37)
[2022-08-06 06:00] VITALS: BP 111/60; PULSE 70; RESP 16; TEMP 36.9; O2SAT 100
[2022-08-06] MEDS: Nicotine 21 MG PATCH.TD24 TRANSDERMA (08:38)
[2022-08-06] MEDS: methADONE HCl 20 MG/2 ML ORAL.CONC 185 MG PO (08:39)
[2022-08-06] MEDS: Multivitamin TABLET 1 TAB PO (08:39)
[2022-08-06] MEDS: Sertraline HCL 25 MG TABLET PO (08:39)
[2022-08-06] MEDS: Gabapentin 300 MG CAPSULE PO ×3 (08:39→20:32)
[2022-08-06] MEDS: Cholecalciferol (Vitamin D3) 10 MCG TABLET PO (08:39)
[2022-08-06] MEDS: Clotrimazole 1 % Cream 15 GM TUBE 1 APPL TOPICAL (09:07)
[2022-08-06] MEDS: Magnesium Hydrox/Alum Hydrox 30 ML ORAL.SUSP PO (13:23)
[2022-08-06 16:00] VITALS: PULSE 84
[2022-08-06 18:00] VITALS: BP 111/81; PULSE 68; RESP 16; TEMP 36.6; O2SAT 97
--- NOTE | 2022-08-06 18:53 | HO.PSYCHPN ---
Subjective Subjective Date of Service: 08/06/22 Reason For Visit: SI Subjective Notes: Conditional Voluntary Healthcare Proxy: No Guardianship: No Medical Problems Affecting Mental Status: Yes (Hepatitis C) Interim History: Finds med changes helpful. Feeling improved, more visable in milieu and with peers. Medication Compliance: Yes Side effects from medications: No Attending Groups: Intermittent Review of Systems Acute medical concerns: No Medical Review of Systems: unchanged Mental Status Exam Mental Status Exam Patient Appearance: Fatigued Patient Orientation: Person, Place, Time and Situation Level of Consciousness: Alert Patient Behavior: Talkative and Good Eye Contact Mood Description: Depressed Affect Description: Flat Patient Cognition Impaired: No Ability to Follow Directions: Good Speech Pattern: Spontaneous Speech Memory Description: Intact Hallucinations: None Delusions: Not Present Perceptual Disturbances: Depersonalization and Derealization Thought Process: Distracted and Rumination Thought Content: positive for [place], positive for Circumstantial, positive for Tangential and positive for Suicidal Ideation Depressive Symptoms: Increased Irritability, Thoughts of /Suicide, Loss of Energy and Difficulty Concentrating Judgement: Fair Diagnostics Vital Signs (24Hr): Vital Signs - 24 hr 08/06/22 06:00 08/06/22 18:00 Temperature 98.4 F 98 F Pulse Rate 70 68 Respiratory Rate 16 16 Blood Pressure 111/60 111/81 Pulse Oximetry 100 97 Oxygen Delivery Method Room Air Room Air BMI result Body Mass Index 24.0 Labs Results: 08/01/22 14:01 08/02/22 15:04 Medications Medications Current Medications Acetaminophen (Acetaminophen 325 Mg Tablet) 650 mg PO Q6H PRN PRN Reason: Headache/Pain Mild Scale (1-3) Last Admin: 08/05/22 20:44 Dose: 650 mg Al Hydroxide/Mg Hydroxide (Magnesium Hydrox/Alum Hydrox 30 Ml Oral.Susp) 30 ml PO Q6H PRN PRN Reason: Heartburn/Nausea Last Admin: 08/06/22 13:23 Dose: 30 ml Clotrimazole (Clotrimazole 1 % Cream 15 Gm Tube) 1 appl TOPICAL BID [facility]; Protocol Last Admin: 08/06/22 09:07 Dose: 1 appl Gabapentin (Gabapentin 300 Mg Capsule) 300 mg PO TID [facility] Last Admin: 08/06/22 13:23 Dose: 300 mg Hydroxyzine HCl (Hydroxyzine Hcl 25 Mg Tablet) 25 mg PO Q6H PRN PRN Reason: Anxiety Last Admin: 08/06/22 01:11 Dose: 25 mg Ibuprofen (Ibuprofen 600 Mg Tablet) 600 mg PO Q8H PRN PRN Reason: back pain moderate Lorazepam (Lorazepam 1 Mg Tablet) 1 mg PO Q6H PRN PRN Reason: Alcohol Withdrawal, max 4mg Last Admin: 08/06/22 10:23 Dose: 1 mg Magnesium Hydroxide (Milk Of Magnesia 30 Ml Oral.Susp) 30 ml PO DAILY PRN PRN Reason: Constipation Methadone HCl (Methadone Hcl 20 Mg/2 Ml Oral.Conc) 185 mg PO DAILY [facility] Last Admin: 08/06/22 08:39 Dose: 185 mg Multivitamins/Vitamin C (Multivitamin Tablet) 1 tab PO DAILY [facility] Last Admin: 08/06/22 08:39 Dose: 1 tab Nicotine (Nicotine 21 Mg Patch.Td24) 21 mg TRANSDERMA DAILY [facility] Last Admin: 08/06/22 08:38 Dose: 21 mg Quetiapine Fumarate (Quetiapine Fumarate 50 Mg Tablet) 50 mg PO BEDTIME [facility] Last Admin: 08/05/22 20:44 Dose: Not Given Sertraline HCl (Sertraline Hcl 25 Mg Tablet) 25 mg PO DAILY [facility] Last Admin: 08/06/22 08:39 Dose: 25 mg Trazodone HCl (Trazodone Hcl 50 Mg Tablet) 50 mg PO BEDTIME PRN PRN Reason: Insomnia Vitamin D (Cholecalciferol (Vitamin D3) 10 Mcg Tablet) 10 mcg PO DAILY [facility] Last Admin: 08/06/22 08:39 Dose: 10 mcg Allergies Allergies Allergy/AdvReac Type Severity Reaction Status Date / Time carbamazepine Allergy Unknown Unknown Verified 08/01/22 12:18 hydrocodone Allergy Unknown Unknown Verified 08/01/22 12:18 morphine Allergy Unknown Unknown Verified 08/01/22 12:18 tegretol Allergy Unknown Unknown Uncoded 08/01/22 12:18 Assessment & Plan Assessment & Plan (1) Recurrent major depression-severe: Status: Acute Code(s): F33.2 - Major depressive disorder, recurrent severe without psychotic features (2) Opioid use disorder, severe, on maintenance therapy: Status: Acute Code(s): F11.20 - Opioid dependence, uncomplicated (3) Cocaine use disorder: Status: Acute Code(s): F14.10 - Cocaine abuse, uncomplicated (4) Alcohol use disorder, moderate, dependence: Status: Acute Code(s): F10.20 - Alcohol dependence, uncomplicated Plan 47 yo male, history of depression, opiate, cocaine, alcohol use disorder with an increase in depressive symptoms and recently making suicide attempts via overdose. Plan: Re-establish medications, review and change regime to address symptoms. Iron Profile, Hepatitis screen, B12, Folate, TSH, FT4, A1c Collateral contacts Referrals for out patient services. 08/03/22- Gabapentin 300 mg tid MVI 1 tab daily Sertraline 25 mg daily Seroquel 50 mg HS Hepatitis B, Core, C positive 08/04/22- No changes today. 08/05/22- Continue current regime I spent minutes with the patient and/or on the patient floor today, greater than?50% of which was spent counseling/coordinating care. Patient educated on: therapeutic strategies Informed Consent: further education needed Reason for contiued inpatient stay Substantial Risk for: harm to self, inability to function and med/psych decompensation
[2022-08-07] MEDS: LORazepam 1 MG TABLET PO ×2 (02:40→13:03)
[2022-08-07 06:00] VITALS: BP 116/63; PULSE 79; RESP 14; TEMP 36.6; O2SAT 96
[2022-08-07] MEDS: methADONE HCl 20 MG/2 ML ORAL.CONC 185 MG PO (08:26)
[2022-08-07] MEDS: Gabapentin 300 MG CAPSULE PO ×3 (08:28→20:51)
[2022-08-07] MEDS: Multivitamin TABLET 1 TAB PO (08:28)
[2022-08-07] MEDS: Cholecalciferol (Vitamin D3) 10 MCG TABLET PO (08:28)
[2022-08-07] MEDS: Nicotine 21 MG PATCH.TD24 TRANSDERMA (08:28)
[2022-08-07] MEDS: Omeprazole 20 MG CAPSULE.DR PO ×2 (08:28→20:52)
[2022-08-07] MEDS: Sertraline HCL 25 MG TABLET PO (09:02)
--- NOTE | 2022-08-07 17:15 | HO.PSYCHPN ---
Subjective Subjective Date of Service: 08/07/22 Reason For Visit: SI Subjective Notes: Wheat Warning and Conditional Voluntary Interim History: I spoke with pt's team, will discontinue CIWA and COWs. I spoke with pt this evening. Says the Ativan has really helped me. Says he wants a referral for a new psych provider, as he had difficulty obtaining ativan script OP. Says he feels he is doing good with the way meds have been here. Denies withdrawal sx. Sleep is okay, sometimes wakes up through the night but this is baseline. Mood is good. Has anticipatory anxiety. Feels safe. Medication Compliance: Yes Side effects from medications: No Attending Groups: Intermittent Review of Systems Acute medical concerns: No Medical Review of Systems: unchanged Mental Status Exam Mental Status Exam Narrative: Patient Appearance: Fatigued Patient Orientation: Person, Place, Time and Situation Level of Consciousness: Alert Patient Behavior: Talkative and Good Eye Contact Mood Description: Depressed Affect Description: Flat Patient Cognition Impaired: No Ability to Follow Directions: Good Speech Pattern: Spontaneous Speech Memory Description: Intact Hallucinations: None Delusions: Not Present Perceptual Disturbances: Depersonalization and Derealization Thought Process: Distracted and Rumination Thought Content: positive for [place], positive for Circumstantial, positive for Tangential and positive for Suicidal Ideation Depressive Symptoms: Increased Irritability, Thoughts of /Suicide, Loss of Energy and Difficulty Concentrating Judgement: Fair Diagnostics Vital Signs (24Hr): Vital Signs - 24 hr 08/06/22 18:00 08/07/22 06:00 Temperature 98 F 98 F Pulse Rate 68 79 Respiratory Rate 16 14 Blood Pressure 111/81 116/63 Pulse Oximetry 97 96 Oxygen Delivery Method Room Air Room Air BMI result Body Mass Index 24.0 Labs Results: 08/01/22 14:01 08/02/22 15:04 Medications Medications Current Medications Acetaminophen (Acetaminophen 325 Mg Tablet) 650 mg PO Q6H PRN PRN Reason: Headache/Pain Mild Scale (1-3) Last Admin: 08/05/22 20:44 Dose: 650 mg Al Hydroxide/Mg Hydroxide (Magnesium Hydrox/Alum Hydrox 30 Ml Oral.Susp) 30 ml PO Q6H PRN PRN Reason: Heartburn/Nausea Last Admin: 08/06/22 13:23 Dose: 30 ml Bismuth Subsalicylate (Bismuth Subsalicylate 262 Mg Tablet) 524 mg PO QID PRN PRN Reason: Dyspepsia Clotrimazole (Clotrimazole 1 % Cream 15 Gm Tube) 1 appl TOPICAL BID [facility]; Protocol Last Admin: 08/07/22 09:00 Dose: Not Given Docusate Sodium (Docusate Sodium 100 Mg Capsule) 100 mg PO BID PRN PRN Reason: Constipation Gabapentin (Gabapentin 300 Mg Capsule) 300 mg PO TID [facility] Last Admin: 08/07/22 14:03 Dose: 300 mg Hydroxyzine HCl (Hydroxyzine Hcl 25 Mg Tablet) 25 mg PO Q6H PRN PRN Reason: Anxiety Last Admin: 08/06/22 01:11 Dose: 25 mg Ibuprofen (Ibuprofen 600 Mg Tablet) 600 mg PO Q8H PRN PRN Reason: back pain moderate Lorazepam (Lorazepam 1 Mg Tablet) 1 mg PO Q6H PRN PRN Reason: Alcohol Withdrawal, max 4mg Last Admin: 08/07/22 13:03 Dose: 1 mg Magnesium Hydroxide (Milk Of Magnesia 30 Ml Oral.Susp) 30 ml PO DAILY PRN PRN Reason: Constipation Methadone HCl (Methadone Hcl 20 Mg/2 Ml Oral.Conc) 185 mg PO DAILY [facility] Last Admin: 08/07/22 08:26 Dose: 185 mg Multivitamins/Vitamin C (Multivitamin Tablet) 1 tab PO DAILY [facility] Last Admin: 08/07/22 08:28 Dose: 1 tab Nicotine (Nicotine 21 Mg Patch.Td24) 21 mg TRANSDERMA DAILY [facility] Last Admin: 08/07/22 08:28 Dose: 21 mg Omeprazole (Omeprazole 20 Mg Capsule.Dr) 20 mg PO BID [facility] Last Admin: 08/07/22 08:28 Dose: 20 mg Quetiapine Fumarate (Quetiapine Fumarate 50 Mg Tablet) 50 mg PO BEDTIME [facility] Last Admin: 08/06/22 20:39 Dose: Not Given Sertraline HCl (Sertraline Hcl 25 Mg Tablet) 25 mg PO DAILY [facility] Last Admin: 08/07/22 09:02 Dose: 25 mg Trazodone HCl (Trazodone Hcl 50 Mg Tablet) 50 mg PO BEDTIME PRN PRN Reason: Insomnia Vitamin D (Cholecalciferol (Vitamin D3) 10 Mcg Tablet) 10 mcg PO DAILY [facility] Last Admin: 08/07/22 08:28 Dose: 10 mcg Allergies Allergies Allergy/AdvReac Type Severity Reaction Status Date / Time carbamazepine Allergy Unknown Unknown Verified 08/01/22 12:18 hydrocodone Allergy Unknown Unknown Verified 08/01/22 12:18 morphine Allergy Unknown Unknown Verified 08/01/22 12:18 tegretol Allergy Unknown Unknown Uncoded 08/01/22 12:18 Assessment & Plan Assessment & Plan (1) Recurrent major depression-severe: Status: Acute Code(s): F33.2 - Major depressive disorder, recurrent severe without psychotic features (2) Opioid use disorder, severe, on maintenance therapy: Status: Acute Code(s): F11.20 - Opioid dependence, uncomplicated (3) Cocaine use disorder: Status: Acute Code(s): F14.10 - Cocaine abuse, uncomplicated (4) Alcohol use disorder, moderate, dependence: Status: Acute Code(s): F10.20 - Alcohol dependence, uncomplicated Plan 47 yo male, history of depression, opiate, cocaine, alcohol use disorder with an increase in depressive symptoms and recently making suicide attempts via overdose. Plan: Re-establish medications, review and change regime to address symptoms. Iron Profile, Hepatitis screen, B12, Folate, TSH, FT4, A1c Collateral contacts Referrals for out patient services. 08/03/22- Gabapentin 300 mg tid MVI 1 tab daily Sertraline 25 mg daily Seroquel 50 mg HS Hepatitis B, Core, C positive 08/04/22- No changes today. 08/05/22- Continue current regime 08/07/22- No changes, d/c COWs and CIWA, pt denies withdrawal I spent minutes with the patient and/or on the patient floor today, greater than?50% of which was spent counseling/coordinating care. Patient educated on: diagnosis, medication risk/benefits and therapeutic strategies Reason for contiued inpatient stay Substantial Risk for: med/psych decompensation
[2022-08-07 20:50] VITALS: BP 103/66; PULSE 79; TEMP 36.2
[2022-08-08] MEDS: hydrOXYzine HCL 25 MG TABLET PO ×2 (01:08→15:04)
[2022-08-08 06:00] VITALS: BP 137/54; PULSE 65; RESP 18; O2SAT 98
[2022-08-08] MEDS: Nicotine 21 MG PATCH.TD24 TRANSDERMA (08:40)
[2022-08-08] MEDS: Sertraline HCL 25 MG TABLET PO (08:40)
[2022-08-08] MEDS: Cholecalciferol (Vitamin D3) 10 MCG TABLET PO (08:40)
[2022-08-08] MEDS: Gabapentin 300 MG CAPSULE PO ×2 (08:41→15:03)
[2022-08-08] MEDS: Omeprazole 20 MG CAPSULE.DR PO (08:41)
[2022-08-08] MEDS: Multivitamin TABLET 1 TAB PO (08:41)
[2022-08-08] MEDS: methADONE HCl 20 MG/2 ML ORAL.CONC 185 MG PO (08:43)
[2022-08-08] MEDS: LORazepam 1 MG TABLET PO (09:40)
[2022-08-08] MEDS: Clotrimazole 1 % Cream 15 GM TUBE 1 APPL TOPICAL (09:40)
--- NOTE | 2022-08-08 17:27 | PM.PSYDC ---
DS: Providers Provider Date of Service: 08/08/22 Date of admission: 08/01/22 19:17 Date of discharge: 08/08/22 Primary care physician: [place] Physician Admitting clinician: Susanne Tsang Attending physician on admission: Alexander Aguirre Attending physician on discharge: Alexander Aguirre Discharging clinician: Susanne Tsang DS: Diagnosis Discharge Diagnosis (1) Recurrent major depression-severe: Status: Acute (2) Opioid use disorder, severe, on maintenance therapy: Status: Acute (3) Cocaine use disorder: Status: Acute (4) Alcohol use disorder, moderate, dependence: Status: Acute DS: Medications Discharge Medications Home Medications: Previous Rx's Medication Instructions Recorded cholecalciferol (vitamin D3) 10 10 mcg PO DAILY #30 tabs 08/08/22 mcg (400 unit) tablet (Vitamin D3) clotrimazole 1 % topical cream 1 appl topical BID #2 applicators 08/08/22 docusate sodium 100 mg capsule 100 mg PO BID PRN Constipation #60 08/08/22 caps gabapentin 300 mg capsule 300 mg PO TID #90 caps 08/08/22 hydroxyzine HCl 25 mg tablet 25 mg PO Q6H PRN Anxiety #30 tabs 08/08/22 methadone 10 mg/mL oral 185 mg (18.5 mL) PO DAILY #0 mL 08/08/22 concentrate (Methadose) multivitamin (Daily-Mel tablet) 1 tab PO DAILY #30 tabs 08/08/22 nicotine 21 mg/24 hr daily 21 mg transdermal DAILY #30 ea 08/08/22 transdermal patch omeprazole 20 mg capsule,delayed 20 mg PO BID #60 caps 08/08/22 release quetiapine 50 mg tablet 50 mg PO BEDTIME #30 tabs 08/08/22 sertraline 25 mg tablet 25 mg PO DAILY #30 tabs 08/08/22 trazodone 50 mg tablet 50 mg PO BEDTIME PRN Insomnia #30 08/08/22 tabs Mental Status Exam Mental Status Exam Patient Appearance: Fatigued Patient Orientation: Person, Place, Time and Situation Level of Consciousness: Alert Patient Behavior: Talkative and Good Eye Contact Mood Description: Depressed Affect Description: Flat Patient Cognition Impaired: No Ability to Follow Directions: Good Speech Pattern: Spontaneous Speech Memory Description: Intact Hallucinations: None Delusions: Not Present Thought Process: Intact Thought Content: positive for [place], positive for Circumstantial and positive for Tangential Depressive Symptoms: Increased Irritability, Loss of Energy and Difficulty Concentrating Judgement: Good Data Data Completed and Pending Completed studies during hospitalization [Text1]: 08/01/22 08/02/22 08/03/22 17:38 15:04 08:30 Sodium 139 Potassium 4.3 Chloride 100 Carbon Dioxide 26 Anion Gap 17 BUN 13 Creatinine 0.80 Estim Creat Clear Calc 111.6 Estimated GFR > 60 Fasting Glucose 132 H Estimat Average Glucose 91 Hemoglobin A1c % 4.8 Calcium 9.1 Iron TIBC % Saturation Unsat Iron Binding Total Bilirubin 0.7 AST 277 H ALT 115 H Alkaline Phosphatase 130 H D Total Protein 7.1 Albumin 4.0 Triglycerides 109 Cholesterol 142 LDL Cholesterol, Calc 45 HDL Cholesterol 76 Vitamin B12 Folate TSH Urine Opiates Screen Not Detected Urine Fentanyl Screen Not Detected Ur Barbiturates Screen Not Detected Ur Phencyclidine Scrn Not Detected Ur Amphetamines Screen Not Detected U Benzodiazepines Scrn Not Detected Urine Cocaine Screen POSITIVE H U Marijuana (THC) Screen Not Detected Hepatitis A IgM Ab Hep Bs Antigen Hep Bs Antibody Hep B Core Total Ab Hep B Core IgM Ab Hepatitis C Ab (EIA) 08/03/22 08/03/22 08/03/22 08:30 08:30 08:30 Sodium Potassium Chloride Carbon Dioxide Anion Gap BUN Creatinine Estim Creat Clear Calc Estimated GFR Fasting Glucose Estimat Average Glucose Hemoglobin A1c % Calcium Iron 80 TIBC 313 % Saturation 26 Unsat Iron Binding 233 Total Bilirubin AST ALT Alkaline Phosphatase Total Protein Albumin Triglycerides Cholesterol LDL Cholesterol, Calc HDL Cholesterol Vitamin B12 753 Folate 11.8 TSH 2.56 2.68 Urine Opiates Screen Urine Fentanyl Screen Ur Barbiturates Screen Ur Phencyclidine Scrn Ur Amphetamines Screen U Benzodiazepines Scrn Urine Cocaine Screen U Marijuana (THC) Screen Hepatitis A IgM Ab Hep Bs Antigen Hep Bs Antibody Hep B Core Total Ab Hep B Core IgM Ab Hepatitis C Ab (EIA) 08/03/22 08:30 Sodium Potassium Chloride Carbon Dioxide Anion Gap BUN Creatinine Estim Creat Clear Calc Estimated GFR Fasting Glucose Estimat Average Glucose Hemoglobin A1c % Calcium Iron TIBC % Saturation Unsat Iron Binding Total Bilirubin AST ALT Alkaline Phosphatase Total Protein Albumin Triglycerides Cholesterol LDL Cholesterol, Calc HDL Cholesterol Vitamin B12 Folate TSH Urine Opiates Screen Urine Fentanyl Screen Ur Barbiturates Screen Ur Phencyclidine Scrn Ur Amphetamines Screen U Benzodiazepines Scrn Urine Cocaine Screen U Marijuana (THC) Screen Hepatitis A IgM Ab Nonreactive Hep Bs Antigen Negative Hep Bs Antibody REACTIVE Hep B Core Total Ab Reactive Hep B Core IgM Ab Cancelled Hepatitis C Ab (EIA) Reactive H DS: Summary Hospital Course Hospital Course: Admission to adult psychiatry for exacerbation of major depression, opiate, alcohol and cocaine use disorders. Methadone was continued. Seroquel, Sertraline, Gabapentin, Hydroxyzine and Trazodone were re-started. Time spent discussing smoking cessation with patient: 3 to 10 minutes Status at Discharge Functional status at discharge: independent ambulation Overall status at discharge: patient is progressing back to baseline Time Spent with Patient Time attestation: Total time spent providing and/or coordinating discharge services: 35 Time spent: Greater than 30 minutes Discharge Plan Discharge Anticipated Discharge Date/Time: 08/08/22 17:00 Patient Disposition: Home, Self-Care Discharge Diagnosis: Recurrent major depression Opiate use disorder- on maintenance therapy Alcohol use disorder Stimulant use disorder-cocaine Hepatitis C- to begin therapy Referrals: Gracie Valerio [Other] - 08/13/22 2:00 pm (Follow-up discharge therapy appointment Appointment in person at [facility]) Dr. Sanz [Other] - 1 Day (Follow-up discharge appointment with Psychiatrist Appointment in person at [facility] in [place]) Physician,None [Primary Care Provider] - 1 Week Discharge Medications: New multivitamin [Daily-Mel] Tablet 1 tab PO DAILY Qty: 30 0RF trazodone 50 mg Tablet 50 mg PO BEDTIME PRN (Reason: Insomnia) Qty: 30 0RF nicotine 21 mg/24 hr Patch 24 Hour 21 mg transdermal DAILY Qty: 30 0RF docusate sodium 100 mg Capsule 100 mg PO BID PRN (Reason: Constipation) Qty: 60 0RF gabapentin 300 mg Capsule 300 mg PO TID Qty: 90 0RF sertraline 25 mg Tablet 25 mg PO DAILY Qty: 30 0RF omeprazole 20 mg Capsule,Delayed Release(Dr/Ec) 20 mg PO BID Qty: 60 0RF hydroxyzine HCl 25 mg Tablet 25 mg PO Q6H PRN (Reason: Anxiety) Qty: 30 0RF methadone [Methadose] 10 mg/mL Concentrate 185 mg PO DAILY Qty: 0 0RF Rx Instructions: Partial Fill upon patient request. clotrimazole 1 % Cream 1 appl topical BID Qty: 2 0RF Protocol: Apply to: Apply to: scalp cholecalciferol (vitamin D3) [Vitamin D3] 10 mcg (400 unit) Tablet 10 mcg PO DAILY Qty: 30 0RF quetiapine 50 mg Tablet 50 mg PO BEDTIME Qty: 30 0RF Discharge Orders: Discharge Order (Routine); Ordered 08/08/22 Ordered By: Susanne Tsang Diet: Advance to usual diet Activity on Discharge: As tolerated Stand Alone Forms: Patient Portal Discharge page, Community Support Care Plan Goals: Mood and Behavioral Stabilization Health Concerns: Mood and Behavioral Stabilization Plan of Treatment: Attend follow up appointments Take medications as directed Assessment: Alert, oriented, stable mood. Denies SI, HI No symptoms of psychosis Asks to return home to his girlfriend. Reports feeling improved. Pt requested Lorazepam prescription. Discussed concern about addiction and that the purpose of use in hospital was for withdrawal management. Reviewed psychiatric medications initiated and purpose of their use. Discharge Date/Time: 08/08/22 14:30
== END 2022-08-08 14:30 | disposition home or self-care (01) | DRG 751 ==
LOC: HO.ED 16:08 → HO.PM5 19:26 → HO.EDOVER 08-04 18:20 → HO.PM5 08-04 18:20
PROVIDERS: Admitting Provider Psychiatry & Neurology Psychiatry; Emergency Provider Emergency Medicine; Visit Provider Clinical Nurse Specialist Psychiatric/Mental Health, Adult
DX: F33.2 Major depressive disorder, recurrent severe without psychotic features (principal); R45.851 Suicidal ideations; F11.20 Opioid dependence, uncomplicated; B35.0 Tinea barbae and tinea capitis; F10.20 Alcohol dependence, uncomplicated; F14.10 Cocaine abuse, uncomplicated; F17.210 Nicotine dependence, cigarettes, uncomplicated; Z71.6 Tobacco abuse counseling; Z20.822 Contact with and (suspected) exposure to COVID-19; Z88.5 Allergy status to narcotic agent; Z88.6 Allergy status to analgesic agent; Z79.899 Other long term (current) drug therapy
CPT/HCPCS: 36415; 80048; 80053; 80061; 80076; 80307; 82077; 82607; 82746; 83036; 83540; 83735; 84443; 85007; 85027; 86704; 86706; 86709; 86803; 87340; 87635; 90792; 93005; 99285

== ENCOUNTER 2023-03-29 14:42 | Emergency (ER) | payer MEDICAID, SELFPAY ==
--- NOTE | ~2023-03-29 | XR_ITS ---
EXAMINATION: XR CHEST CLINICAL INFORMATION: Cough COMPARISON: None available. TECHNIQUE: 2 views of the chest were obtained. FINDINGS: Hyperexpanded lungs. No consolidation, edema, or effusion. No pneumothorax. The cardiomediastinal silhouette is within normal limits. No osseous abnormality. XR/XR chest 2V IMPRESSION: Hyperexpanded lungs. No consolidation.
[2023-03-29 14:45] VITALS: BP 140/79; PULSE 85; RESP 18; TEMP 36.8; O2SAT 96; BMI 24.4
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
[2023-03-29 15:06] LABS: MANUAL DIFF FLAG NO
[2023-03-29 15:09] LABS: Basophils Absolute Auto 0.1 X10*3/uL (0.0-0.2); Basophils Percent Auto 0.6 % (0-2); Eosinophils Absolute Auto 0.1 X10*3/uL (0.0-0.4); Eosinophils Percent Auto 0.5 % (0-4); Hematocrit 40.7 % (42.0-52.0); Hemoglobin 13.9 g/dl (14.0-18.0); Imm Gran Abs Auto 0.07 X10*3/uL (0.00-0.03); Imm Gran Pct Auto 0.5 % (0.0-0.4); Lymphocytes Absolute Auto 2.5 X10*3/uL (1.2-4.9); Lymphocytes Percent Auto 18.8 % (20-40); Mean Corpuscular HGB Conc 34.2 g/dl (31.0-36.0); Mean Corpuscular Hemoglobin 31.3 pg (27.0-33.0); Mean Corpuscular Volume 91.7 fL (80.0-98.0); Mean Platelet Volume 9.1 fL (9.4-12.4); Monocytes Absolute Auto 0.9 X10*3/uL (0.1-1.2); Monocytes Percent Auto 6.5 % (2-11); Neutrophils Absolute Auto 9.7 x10*3/uL (2.0-8.3); Neutrophils Percent Auto 73.1 % (45-73); Platelet Count 323 X10*3/uL (160-400); Red Blood Count 4.44 X10*6/uL (4.60-5.80); Red Cell Distribution Width 12.7 % (11.0-16.0); White Blood Count 13.3 X10*3/uL (4.8-10.8)
--- OUTSIDE RECORDS SUMMARY | 2023-03-29 15:09 | XMS_ITS | Continuity of Care Document ---
Author Name Unknown Organization [facility] ter Address [address] [place] [id number]- Care Team Providers Care Web Content Director Name Role Phone Not on Staff, PCP Primary Care Physician Unavail able Encounter [facility] Date(s): 10/30/22 - 11/05/[address] [id number]- Encounter Diagnosis Acetaminophen overdose(Final) - 10/30/22 OSVALDO (acute kidney injury)(Final) - 10/30/22 Transaminitis(Final) - 10/30/22 Alcohol use(Final) - 10/30/22 Suicide attempt by drug overdose(Final) - 10/30/22 Discharge Disposition: Transfer to Psych Facility Attending Physician: Gilbert Bellamy MD Admitting Physician: Naga Kelley MD Referring Physician: Not on Staff, Referring MD Allergies, Adverse Reactions, Alerts Substance Reaction Severity Status morphine Active Vicodin Active TEGretol Active Immunizations Given and Recorded Vaccine Date Status Refusal Reason SARS-CoV-2 mRNA ([id number]) vax 10/23/22 Recorded tetanus/diphtheria/pertussis, acel(Tdap) 12/28/18 Given Not Given Vaccine Date Status Refusal Reason influenza virus vaccine, inactivated 11/01/22 Not Given Patient Refuses influenza virus vaccine, inactivated 11/02/21 Not Given Permanently Refused influenza virus vaccine, inactivated 07/16/18 Not Given Patient Refuses pneumococcal 23-valent vaccine 07/16/18 Not Given Patient Refuses Medications folic acid 1 mg oral tablet 1 mg, 1, tablet, By Mouth, Daily, # 30 tablet, Refills 0, Tot. Refills 0, Maintenance, 11/14/21 12:03:00 EST, Route to Pharmacy Electronically, [facility], Partial fill upon patient request if the prescription is for a schedule II opioid... Start Date: 11/14/21 Stop Date: 12/14/21 Status: Ordered gabapentin 300 mg oral capsule 300 mg, 1, capsule, By Mouth, 3 times a day, # 90 capsule, Refills 0, Tot. Refills 0, Maintenance, 11/14/21 11:53:00 EST, Route to Pharmacy Electronically, [facility], Partial fill uponpatient request if the prescription is for a schedu... Start Date: 11/14/21 Stop Date: 12/14/21 Status: Ordered ibuprofen 400 mg oral tablet 400 mg, 1, tablet, By Mouth, 3 times a day, PRN, Refills 0, Maintenance, Pain , Mild, 11/10/21 8:59:00 EST, Partial fill upon patient request if the prescription is for a schedule II opioid drug. Start Date: 11/10/21 Status: Ordered Magic Mouth Wash 15 mL, Swish and Spit, 3 times a day, 0 Refills, Maintenance, 11/10/21 8:59:00 EST, Suspension, Partial fill upon patient request if the prescription is for a schedule II opioid drug. Start Date: 11/10/21 Status: Ordered methadone 10 mg/5 mL oral solution 85 mL = 170 mg, By Mouth, Daily, 0 Refills, Maintenance, 07/15/20 9:02:00 EDT, Solution, Partial fill upon patient request Start Date: 07/15/20 Status: Ordered MiraLax Powder 1 pack/packet = 17 Gm, By Mouth, Daily, PRN Constipation, 0 Refills, Maintenance, 11/08/21 11:25:00EST, Powder, Partial fill upon patient request if the prescription is for a schedule II opioid drug. Start Date: 11/08/21 Status: Ordered Multivit Therapeutic/Minerals Tablet 1 tablet, By Mouth, Daily, 0 Refills, Maintenance, 11/08/21 11:25:00 EST, Tablet, Partial fill uponpatient request if the prescription is for a schedule II opioid drug. Start Date: 11/08/21 Status: Ordered Nicotine = 21 mg, Topically, Every 24 hours, 0 Refills, Maintenance, 11/10/21 8:59:00 EST, Patch, Partial fill upon patient request if the prescription is for a schedule II opioid drug. Start Date: 11/10/21 Status: Ordered Orajel 10% Gel 1, applicator, Topically, Every 4 hours, PRN, Refills 0, Maintenance, Pain , Mild, 11/08/21 11:24:00 EST, Gel, Partial fill upon patient request if the prescription is for a schedule II opioid drug. Start Date: 11/08/21 Status: Ordered oxyCODONE 5 mg oral tablet 5 mg, Tablet, By Mouth, Every 6 hours, PRN for Pain , Severe, Routine, 11/01/22 11:52:00 EST Start Date: 11/01/22 Stop Date: 11/08/22 Status: Ordered Protonix 40 mg oral delayed release tablet = 40 mg, By Mouth, Daily, 0 Refills, Maintenance, 11/08/21 11:24:00 EST, EC Tablet Start Date: 11/08/21 Status: Ordered Pyridoxine Tablet 50 mg, By Mouth, Daily, Refills 0, Maintenance, 11/08/21 11:25:00 EST, Partial fill upon patient request if the prescription is for a schedule II opioid drug. Start Date: 11/08/21 Status: Ordered QUEtiapine 100 mg oral tablet 100 mg, 1, tablet, By Mouth, Daily at bedtime, PRN, # 30 tablet, Refills 0, Tot. Refills 0, Maintenance, Anxiety, 11/14/21 11:53:00 EST, Route to Pharmacy Electronically, [facility], Partial fill upon patient request if the prescription... Start Date: 11/14/21 Stop Date: 12/14/21 Status: Ordered sertraline 100 mg oral tablet 1 tablet = 100 mg, By Mouth, Daily, # 30 tablet, 0 Refills, Maintenance, 11/14/21 11:52:00 EST, Tablet, [facility], Partial fill upon patient request if the prescription is for a schedule II opioid drug., 179, cm, 11/10/21 6:40:00 EST, H... Start Date: 11/14/21 Stop Date: 12/14/21 Status: Ordered Problem List Condition Confirmation Course Effective Dates Status H ealth Status Informant Alcohol abuse Confirmed Active Coagulopathy Confirmed Active Cerebral edema Confirmed Active Transaminitis Confirmed Active GI bleed Confirmed Active Hepatic encephalopathy Confirmed Active Hypertension Confirmed Active OSVALDO (acute kidney injury) Confirmed Active Opiate abuse, continuous Confirmed Active Pneumonia Confirmed Active Results Radiology Reports * Exam Date Time Procedure Performing Provider Status 10/30/22 6:[address] Abdomen and Pelvi s W/O Contrast Nigel Berry (Verified) Notes: (CT Abdomen and Pelvis W/O Contrast) Reason For Exam: Pain RESULT: CT Abdomen and Pelvis W/O Contrast CT Abdomen and Pelvis W/O Contrast REASON: Pain; Clinical Question(s): Pancreatitis TECHNIQUE: Spiral CT through the abdomen and pelvis without IV contrast formatted in 3 planes. Thisstudy was performed without oral contrast. Weight- based protocol using automatic tube modulation was used to optimize exposure parameters. CTDIvol Body: 14.00 mGy, DLP Body: 799 mGy*cm. COMPARISON: CT abdomen pelvis 11/05/2021 FINDINGS: Dinkey Brakeman View Findings, Lines and Tubes: None. Visualized Chest: Mild bronchial wall thickening and mucous in the right lower lobe with faint groundglass at the right lung base. No pleural effusion. Diaphragm: Normal. Liver: Hepatic steatosis Gallbladder: No CT evidence of gallbladder pathology. Bile ducts: Unchanged mildly dilated common duct measuring 1.2 cm. Mild intrahepatic biliary ductaldilatation is unchanged Spleen: Normal. Pancreas: Normal. Adrenal glands: Normal. Kidneys and ureters: Mild bilateral pelvicaliectasis likely due to distended urinary bladder Bladder: Distended Stomach, small bowel, and large bowel: Unremarkable stomach. Small bowel loops are nondilated, no evidence of obstruction. Mildly stool-filled colon. Appendix: Sutures at the cecal base consistent with appendectomy. Peritoneum and retroperitoneum: No ascites or pneumoperitoneum. No omental or mesenteric lesions. Lymph nodes: No enlarged lymph nodes. Subcentimeter gastrohepatic, periportal and periaortic lymph nodes nodes are unchanged. Blood vessels: Mild vascular calcifications but no aneurysm. Abdominal and pelvic wall: Unremarkable. Bones: No acute abnormality. IMPRESSION: No acute abnormality in the abdomen and pelvis Unchanged mild biliary ductal dilatation. Mucus plug within the right lower lobe bronchi. Mild groundglass in the right lower lobe may be secondary to atelectasis. Hepatic steatosis. Other stable and incidental findings outlined above I have personally reviewed the images and I agree with this report. WSN: [id number] Ordering Physician: Lore Croft Dictated By: Ned Sherman DO Dictated Date/Time: 10/30/22 7:45 am Reviewed By: Brenton Frank MD Signed By: Brenton Frank MD Signed Date/Time: 10/30/22 7:50 am Transcribed By: ANDREAS Transcribed Date/Time: 10/30/22 7:18 am Vital Signs Most recent to oldest [Reference Range]: 1 2 3 Height 178 cm (11/05/22 3:17 PM) 178 cm (11/05/22 7:14 AM) 178 cm (11/04/22 2:45 PM) Weight 83.3 kg (11/05/22 6:00 AM) 83.3 kg (11/04/22 6:16 AM) 83.6 kg (11/02/22 6:34 AM) Oxygen Saturation [94-100 %] 99 % (11/05/22 3:17 PM) 99 % (11/05/22 7:14 AM) 99 % (11/04/22 11:00 PM) Pulse Rate [55-90 bpm] 57 bpm (11/05/22 3:17 PM) 53 bpm *L* (11/05/22 7:14 AM) 59 bpm (11/04/22 11:00 PM) Body Mass Index [18.5-24.99 kg/m2] 24.27 kg/m2 (10/31/22 3:17 PM) Blood Pressure [90-138/55-84 mm Hg] 118/62mm Hg (11/05/22 3:17 PM) 125/67mm Hg (11/05/22 7:14 AM) 141/83mm Hg *H* (11/04/22 11:00 PM) Respiratory Rate [16-30 br/min] 18 br/min (11/05/22 6:45 PM) 18 br/min (11/05/22 3:17 PM) 18 br/min (11/05/22 12:49 PM) Temperature [96.8-100.4 DegF] 98.0 DegF (11/05/22 3:17 PM) 98.4 DegF (11/05/22 7:14 AM) 97.8 DegF (11/04/22 11:00 PM) Mode of Delivery (Oxygen) Room air (11/05/22 3:17 PM) Room air (11/05/22 7:14 AM) Room air (11/04/22 11:00 PM) Blood pressure sites Arm, right (11/05/22 3:17 PM) Arm, left (11/05/22 7:14 AM) Arm, right (11/04/22 11:00 PM) Temperature Route Oral (11/05/22 3:17 PM) Oral (11/05/22 7:14 AM) Oral (11/04/22 11:00 PM) Dry Weight 76.9 kg (10/31/22 3:17 PM) Weight Obtained Via Standing scale (11/05/22 6:00 AM) Standing scale (11/04/22 6:16 AM) Bed scale (11/02/22 6:34 AM) Social History Social History Type Response Tobacco Use: 4 or less cigar ettes(less than 1/4 pack)/day in last 30 days. Interested in cessation: No. Yes Sex Admission evaluation note * Lore Croft MD: PERFORM Event Display: Admission Note Authored Date: [id number] Patient: ??GILBERTO ALVARENGA ? Age:??47 Years?Sex:??Male?:??1975?? Chief Complaint/Reason for Consultation Intentional??Tylenol??overdose History of Present Illness Gilberto is a 47-year-old male patient with history of depression, previous suicide attempts, alcohol use disorder, cocaine use disorder, opiate disorder, currently on methadone who presented to [facility] after ingesting initially reported dose of 80 tablets of 500 mg of Tylenol tablets but during my interview he says that he is unsure how many he took.?? Reportedly 250 tablet bottle had no tablets left and it was brought only a couple days ago.?? He does report some abdominal discomfort, nausea and generalized body aches.?? He does report some tactile hallucinations.?? Reports drinking 1 to 2 pints of vodka a day.?? Also has recently done heroin and cocaine.?? Reports being on 195 mg of methadone and gets it from [facility].?? Patient had reported timing of around 8 PM to ER triage nurse and 9 PM to ER provider.?? To me he reports ingestion timing of 7 PM.?? Assumed patient's care at 3:35 PM.?? Patient's case was discussed by ER with poison control who recommended starting on Acetadote which has been started on 21-hour protocol by ER.?? Patient denies any coingestions.?? Does report continued depression.?? He endorses Tylenol overdose with suicidal intent.?? Denies any homicidal intent.?? Denies any hallucinations.?? Patient does report history of previous withdrawal related seizures. ?? In the emergency room, noted to be afebrile, heart rate fluctuating between 65 and 97, most recent blood pressure 132/83, maintaining saturation 100% on room air.?? On review of labs, noted to white count of 9.3, hemoglobin 13.7, platelets 274, pH of 7.36 on VBG, INR 1.1, pro time 11.9, sodium 139, potassium 3.5, creatinine 1.4, anion gap 19, bicarb 22, albumin 5.0, AST 87, ALT 82, lactate 2.5, TSH 2.19, high-sensitivity troponin 13, ethanol level 42, salicylate level undetectable, Tylenol level 133 followed by 96, influenza RSV and COVID-19 PCR negative.?? EKG obtained in the ER showed normal sinus rhythm with prolonged QT???QTC of 494, nonspecific ST changes. Review of Systems General ROS:??negative for chills or fever, noted fatigue, no night sweats, no unexpained weight loss or weight gain Psychological ROS:??Positive for suicide attempt??with??Tylenol ingestion, flat affect,??depression ENT ROS:??negative for nasal congestion, no sinus drainage, no nosebleeding, no sore throat, no dysphagia, no ear pain Hematological and Lymphatic ROS:??Positive history of GI bleed, no history of blood clots, no recent increase in bruising, no noted swollen lymph nodes Endocrine ROS:??negative for polyuria/polydipsia?? Respiratory ROS:??negative for cough, no shortness of breath, no wheezing Cardiovascular ROS:??no chest pain, ??No dyspnea on exertion, ??No edema, no palpitations, no history of loss of consciousness, no orthopnea, no paroxysmal nocturnal dyspnea?? Gastrointestinal ROS:??negative for reflux, positive for??nausea and abdominal pain, no black or bloody stools- also no history of constipation, diarrhea, heartburn or hematemesis Genito-Urinary ROS:??no dysuria, no trouble voiding, or hematuria Musculoskeletal ROS:??negative for worsening ongoing back pain, no worsening or chronic neck pain, no new or worsening joint pain, no calf swelling Neurological ROS:??no symptoms of confusion, no dizziness, no gait disturbance, no impaired coordination/balance, no memory loss, positive for history of seizures, no history of speech problems, no tremors , no visual changes. Objective ? Vital Signs?? Temperature: 98.1 DegF (10/30/22 04:05:00) Temperature Route: Oral (10/30/22 04:05:00) Pulse Rate: 76 bpm (10/30/22 04:41:00) Respiratory Rate: 20 br/min (10/30/22 04:41:00) Systolic Blood Pressure: 132 mm Hg (10/30/22 04:41:00) Diastolic Blood Pressure: 83 mm Hg (10/30/22 04:41:00) Blood pressure sites: Arm, right (10/30/22 04:41:00) Mean Arterial Pressure: 101 mm Hg (10/30/22 04:05:00) Pulse Pressure: 47 mm Hg (10/30/22 04:05:00) Oxygen Saturation: 100 % (10/30/22 04:41:00) Mode of Delivery (Oxygen): Room air (10/30/22 04:41:00) End Tidal CO2: 29 mm Hg (10/30/22 04:05:00) Early Warning Score: 0 (10/30/22 05:16:36) ? Pain Scores?? No qualifying data available. ? Intake/Output? 10/30 00:57 10/30 07:00 10/29 07:00 10/28 07:00 10/27 07:00 ?? 10/30 06:04 10/30 06:04 10/30 06:59 10/29 06:59 10/28 06:59 Intake ? 1700 ?906.2 ?793.8 ?0 ?0 Output ?0 ?0 ?0 ?0 ?0 Net Total ? 1700 ?906.2 ?793.8 ?0 ?0 ? [place] Coma Scale Karoline Coma Score: 15 (10/29/22 22:57:00) Motor Response-Adult: Obeys commands (10/29/22 22:57:00) Response Eye Opening: Spontaneously (10/29/22 22:57:00) Verbal Response-Adult: Oriented and converses (10/29/22 22:57:00) ? Basic ADLs Ambulatory devices needed: None (10/29/22) ? Physical Exam ?? General appearance- alert, cooperative, no distress, appears stated age, oriented to time, place and person, Head- Normocephalic, without obvious abnormality, atraumatic Eyes-conjunctivae/corneas clear. PERRL, EOM's intact. Nose- Nares normal. Septum midline. Mucosa normal. No drainage or sinus tenderness. Throat-Lips, mucosa, and tongue normal. Neck- supple, symmetrical, trachea midline, no adenopathy, thyroid: not enlarged, symmetric, no tenderness/mass/nodules, no carotid bruit and no JVD Back- symmetric, no curvature.?? No CVA tenderness Lungs-??clear to auscultation bilaterally Chest wall- no tenderness, no skin rash or lesions or bruising, no crepitance Heart- regular rate and rhythm, S1, S2 normal, no?? click, rub or gallop Abdomen-??soft,??mild epigastric tenderness to palpation, no rebound, no guarding, no peritoneal signs??bowel sounds normal. No masses,?? No organomegaly Extremities- extremities normal, atraumatic, no cyanosis or edema, warm and well perfused. Muscle tone is normal and equal bilaterally Pulses- 2+ and symmetric on dorsal pedal pulses, posterior tibial pulses, radial pulses Skin- Skin color, texture, turgor normal. No rashes or lesions Neurologic- Normal, nonfocal, no focal weakness ? Assessment/Plan Gilberto is a 47-year-old male patient with history of depression, previous suicide attempts, alcohol use disorder, cocaine use disorder, opiate disorder, currently on methadone who presented to [facility] after ingesting initially reported dose of 80 tablets of 500 mg of Tylenol tablets but during my interview he says that he is unsure how many he took. ?? Tylenol overdose, suicidal intent Transaminitis (close to baseline) Case was discussed with poison control by ER team.?? Started on Acetadote 21- hour protocol.?? We will continue Trend??LFTs,??VBG??and??Tylenol level Check ammonia??and??coagulation panel If LFTs worsen,??will consider??discussing with GI Suicide precautions Cannot leave AMA Psych consultation Paper tray for meals Hydrology Professor at bedside By the time??I assumed care,??patient??out of window??for activated charcoal ?? 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 MD to RN communication put in to confirm methadone dose Given mild QT pronation, will order 30 mg of methadone x1 for the morning for now ?? History of depression Has not been taking his psych meds for last 1 week Will defer psychiatric medication management to psychiatry ?? Acute kidney injury Baseline creatinine??0.8, creatinine today 1.4 Receiving IV fluids in the ER Expect improved with hydration Avoid nephrotoxic meds Monitor creatinine closely ?? Lactic acidosis Expect improved with hydration ?? History of GI bleed and hepatic encephalopathy Monitor CBC closely, checking ammonia No recent reported??GI bleed per patient ?? Abdominal pain??in the setting of alcohol use Checking lipase??and??CT abdomen pelvis??without contrast On gentle IV hydration ?? DVT prophylaxis???Heparin subcu ?? CODE STATUS???full code ?? Diet???regular, paper tray (patient insisting??on meals??before abdominal imaging can be performed) ?? Lore Croft MD [facility] Medicine Date-October 30, 2022.?? Patient seen at 4 AM. ?? IMPORTANT: This document was created by voice recognition software. A conscious effort has been made to improve accuracy of the integration lead. Any obvious errors or omissions should be clarified with the authorof this document. ?? Time spent providing and coordinating care for this patient???70 minutes, complexity high, MDM 3 ?? Histories Allergies Allergies ?(Active and Proposed Allergies Only) Vicodin? (Severity: Unknown severity, Onset: Unknown) morphine? (Severity: Unknown severity, Onset: Unknown) TEGretol? (Severity: Unknown severity, Onset: Unknown) ? Past Medical History/Problem List OSVALDO (acute kidney injury) Alcohol abuse Cerebral edema Coagulopathy GI bleed Hepatic encephalopathy Hypertension Opiate abuse, continuous Pneumonia Transaminitis ? Past Surgical History No surgery history documented. ? Social History Alcohol Details:??Use: Current. Substance Abuse Details:??Use: Current. ??Type: Heroin. Tobacco Details:??Use: 4 or less cigarettes(less than 1/4 pack)/day in last 30 days. ??Interested in cessation: No. ??Yes Details:??Current every day smoker, Type: Cigarettes. ? Psychosocial History ? Family History No family history recorded. ? Travel History Travel Outside [facility]: No ?? Medications Home Medications Benzocaine Topical (Orajel 10% Gel)?1?applicator?Topically?Every 4 hours?as needed?Pain , Mild Folic Acid (folic acid 1 mg oral tablet)?1?Milligram?1?tablet?By Mouth?Daily?for 30?Days Gabapentin (gabapentin 300 mg oral capsule)?300?Milligram?1?capsule?By Mouth?3 times a day?for 30?Days Ibuprofen (ibuprofen 400 mg oral tablet)?400?Milligram?1?tablet?By Mouth?3 times a day?as needed?Pain , Mild Lidocaine Topical (Magic Mouth Wash)?15?Milliliter?Swish and Spit?3 times a day Methadone (methadone 10 mg/5 mL oral solution)?85?Milliliter?170?Milligram?By Mouth?Daily Multivitamin With Minerals (Multivit Therapeutic/Minerals Tablet)?1?tab(s)?By Mouth?Daily Nicotine?21?Milligram?Topically?Every 24 hours Pantoprazole (Protonix 40 mg oral delayed release tablet)?40?Milligram?By Mouth?Daily Polyethylene Glycol 3350 (MiraLax Powder)?1?pack/packet?17?gram?By Mouth?Daily?as needed?Constipation Pyridoxine (Pyridoxine Tablet)?50?Milligram?By Mouth?Daily Quetiapine (QUEtiapine 100 mg oral tablet)?100?Milligram?1?tablet?By Mouth?Daily at bedtime?as needed?for 30?Days?Anxiety Sertraline (sertraline 100 mg oral tablet)?1?tab(s)?100?Milligram?By Mouth?Daily?for 30?Days ? Results Recent Labs BLOOD COUNT & DIFF WBC 9.3 k/mm3 ()?? 10/29/2022 23:45 RBC 4.25 m/mm3 (Low)?? 10/29/2022 23:45 Hgb 13.7 Gm/dL ()?? 10/29/2022 23:45 Hct 39.0 % (Low)?? 10/29/2022 23:45 MCV 91.8 femtoliters ()?? 10/29/2022 23:45 MCH 32.2 pg ()?? 10/29/2022 23:45 MCHC 35.1 g/dL ()?? 10/29/2022 23:45 Platelet Count 274 k/mm3 ()?? 10/29/2022 23:45 RDW-SD 41.0 femtoliters ()?? 10/29/2022 23:45 MPV 9.2 femtoliters (Low)?? 10/29/2022 23:45 Nucleated RBC (Automated) 0.0 #/100 WBC'S ()?? 10/29/2022 23:45 Abs. NRBC 0.0 k/mm3 ()?? 10/29/2022 23:45 Abs. Neut 3.8 k/mm3 ()?? 10/29/2022 23:45 Abs. Lymph 4.3 k/mm3 (High)?? 10/29/2022 23:45 Abs. Nash 0.8 k/mm3 ()?? 10/29/2022 23:45 Abs. Eo 0.3 k/mm3 ()?? 10/29/2022 23:45 Abs. Baso 0.1 k/mm3 ()?? 10/29/2022 23:45 Neut % 40.8 % (Low)?? 10/29/2022 23:45 Lymph % 45.9 % (High)?? 10/29/2022 23:45 Nash % 9.0 % ()?? 10/29/2022 23:45 Eos % 2.8 % ()?? 10/29/2022 23:45 Baso % 1.0 % ()?? 10/29/2022 23:45 Imm Gran 0.5 % ()?? 10/29/2022 23:45 Abs. Imm Gran 0.1 k/mm3 ()?? 10/29/2022 23:45 ?? BLOOD GAS pH, Venous 7.36 ()?? 10/30/2022 05:30 ?? CARDIAC High Sensitivity Troponin (HSTnT) 13 ng/L ()?? 10/29/2022 23:45 ?? CHEM GENERAL Sodium 139 mmol/L ()?? 10/29/2022 23:45 Potassium 3.5 mmol/L (Low)?? 10/29/2022 23:45 Chloride 98 mmol/L ()?? 10/29/2022 23:45 Bicarbonate Level 22 mmol/L ()?? 10/29/2022 23:45 Anion Gap 19 (High)?? 10/29/2022 23:45 Glucose Level 83 mg/dL ()?? 10/29/2022 23:45 Glucose, POC 83 mg/dL ()?? 10/30/2022 01:12 BUN 24 mg/dL (High)?? 10/29/2022 23:45 Creatinine-Blood 1.4 mg/dL (High)?? 10/29/2022 23:45 Estimated GFR Creatinine 60 ML/MIN/1.73 M2 ()?? 10/29/2022 23:45 Calcium 9.2 mg/dL ()?? 10/29/2022 23:45 Calcium, Ionized pH Corrected 1.08 mmol/L (Low)?? 10/29/2022 23:45 Magnesium 1.9 mg/dL ()?? 10/29/2022 23:45 Protein, Total 7.7 Gm/dL ()?? 10/29/2022 23:45 Albumin 5.0 Gm/dL (High)?? 10/29/2022 23:45 AG Ratio 1.9 ()?? 10/29/2022 23:45 Alkaline Phosphatase 79 units/L ()?? 10/29/2022 23:45 Lipase 15 units/L ()?? 10/29/2022 23:45 AST (SGOT) 87 units/L (High)?? 10/29/2022 23:45 ALT (SGPT) 82 units/L (High)?? 10/29/2022 23:45 Bilirubin, Total 0.7 mg/dL ()?? 10/29/2022 23:45 Lactate 2.5 mmol/L (High)?? 10/29/2022 23:45 ?? COAG INR 1.1 ()?? 10/29/2022 23:45 Protime (PT) 11.9 seconds (High)?? 10/29/2022 23:45 APTT 27.3 seconds ()?? 10/29/2022 23:45 ?? ENDOCRINE/TUMOR MARKER TSH 2.19 uIU/mL ()?? 10/29/2022 23:45 ?? HEME OTHER Hold Lavender Top SPECIMEN DISCARDED AFTER 24 HOURS. ()?? 10/30/2022 05:30 ?? MISC. CHEMISTRY Hold Green Top SPECIMEN DISCARDED AFTER 1 WEEK ()?? 10/30/2022 05:30 ?? TOXICOLOGY/TDM Ethanol, Serum or Plasma 42 mg/dL (Abnormal)?? 10/29/2022 23:45 Salicylate Level <0.3 mg/dL (Low)?? 10/29/2022 23:45 Acetaminophen Level 96 mg/L (Critical)?? 10/30/2022 01:15 ?? VIROLOGY Influenza A PCR NEGATIVE ()?? 10/29/2022 23:45 Influenza B PCR NEGATIVE ()?? 10/29/2022 23:45 RSV PCR NEGATIVE ()?? 10/29/2022 23:45 COVID-19 PCR Specimen Source NASAL ()?? 10/29/2022 23:45 COVID-19 PCR Result NEGATIVE ()?? 10/29/2022 23:45 ? Abnormal Labs ?? BLOOD COUNT & DIFF ??Abs. Imm Gran ??0.1 k/mm3 () ??10/29/2022 23:45 ??Abs. Lymph ??4.3 k/mm3 (High) ??10/29/2022 23:45 ??Abs. NRBC ??0.0 k/mm3 () ??10/29/2022 23:45 ??Hct ??39.0 % (Low) ??10/29/2022 23:45 ??Imm Gran ??0.5 % () ??10/29/2022 23:45 ??Lymph % ??45.9 % (High) ??10/29/2022 23:45 ??MPV ??9.2 femtoliters (Low) ??10/29/2022 23:45 ??Neut % ??40.8 % (Low) ??10/29/2022 23:45 ??Nucleated RBC (Automated) ??0.0 #/100 WBC'S () ??10/29/2022 23:45 ??RBC ??4.25 m/mm3 (Low) ??10/29/2022 23:45 ??RDW-SD ??41.0 femtoliters () ??10/29/2022 23:45 ? CARDIAC ??High Sensitivity Troponin (HSTnT) ??13 ng/L () ??10/29/2022 23:45 ? CHEM GENERAL ??AG Ratio ??1.9 () ??10/29/2022 23:45 ??ALT (SGPT) ??82 units/L (High) ??10/29/2022 23:45 ??AST (SGOT) ??87 units/L (High) ??10/29/2022 23:45 ??Albumin ??5.0 Gm/dL (High) ??10/29/2022 23:45 ??Anion Gap ??19 (High) ??10/29/2022 23:45 ??BUN ??24 mg/dL (High) ??10/29/2022 23:45 ??Calcium, Ionized pH Corrected ??1.08 mmol/L (Low) ??10/29/2022 23:45 ??Creatinine-Blood ??1.4 mg/dL (High) ??10/29/2022 23:45 ??Estimated GFR Creatinine ??60 ML/MIN/1.73 M2 () ??10/29/2022 23:45 ??Lactate ??2.5 mmol/L (High) ??10/29/2022 23:45 ??Potassium ??3.5 mmol/L (Low) ??10/29/2022 23:45 ? COAG ??Protime (PT) ??11.9 seconds (High) ??10/29/2022 23:45 ? HEME OTHER ??Hold Lavender Top ??SPECIMEN DISCARDED AFTER 24 HOURS. () ??10/30/2022 05:30 ? MISC. CHEMISTRY ??Hold Green Top ??SPECIMEN DISCARDED AFTER 1 WEEK () ??10/30/2022 05:30 ? TOXICOLOGY/TDM ??Acetaminophen Level ??96 mg/L (Critical) ??10/30/2022 01:15 ??Ethanol, Serum or Plasma ??42 mg/dL (Abnormal) ??10/29/2022 23:45 ??Salicylate Level ??<0.3 mg/dL (Low) ??10/29/2022 23:45 ? VIROLOGY ??COVID-19 PCR Specimen Source ??NASAL () ??10/29/2022 23:45 ??COVID-19 PCR Result ??NEGATIVE () ??10/29/2022 23:45 ??Influenza A PCR ??NEGATIVE () ??10/29/2022 23:45 ??Influenza B PCR ??NEGATIVE () ??10/29/2022 23:45 ??RSV PCR ??NEGATIVE () ??10/29/2022 23:45 ? Note: Critical results are displayed in red. ? Blood Glucose Trend Glucose Level: 83 mg/dL (10/29/22 23:45:00) Glucose, POC: 83 mg/dL (10/30/22 01:12:00) Glucose, POC: 76 mg/dL (10/29/22 23:29:00) ? CBC, CBC w/Diff?? CBC?? Differential?? WBC: 9.3 k/mm3 (23:45) Abs. Neut: 3.8 k/mm3 (23:45) RBC:??4.25 m/mm3??Low (23:45) Abs. Lymph:??4.3 k/mm3??High (23:45) Hct:??39 %??Low (23:45) Abs. Nash: 0.8 k/mm3 (23:45) RDW-SD: 41 femtoliters (23:45) Abs. Eo: 0.3 k/mm3 (23:45) Nucleated RBC (Automated): 0 #/100 WBC'S (23:45) Abs. Baso: 0.1 k/mm3 (23:45) Abs. NRBC: 0 k/mm3 (23:45) Neut %:??40.8 %??Low (23:45) ?? Lymph %:??45.9 %??High (23:45) ?? Nash %: 9 % (23:45) ?? Eos %: 2.8 % (23:45) ?? Baso %: 1 % (23:45) ?? Imm Gran: 0.5 % (23:45) ?? Abs. Imm Gran: 0.1 k/mm3 (23:45) ? BMP, Mg, and Phos Anion Gap:??19??High (23:45) Bicarbonate Level: 22 mmol/L (23:45) BUN:??24 mg/dL??High (23:45) Calcium: 9.2 mg/dL (23:45) Calcium, Ionized pH Corrected:??1.08 mmol/L??Low (23:45) Chloride: 98 mmol/L (23:45) Creatinine-Blood:??1.4 mg/dL??High (23:45) Estimated GFR Creatinine: 60 ML/MIN/1.73 M2 (23:45) Glucose Level: 83 mg/dL (23:45) Magnesium: 1.9 mg/dL (23:45) Potassium:??3.5 mmol/L??Low (23:45) Sodium: 139 mmol/L (23:45) ?? Coagulation Profile APTT: 27.3 seconds (23:45) INR: 1.1 (23:45) Protime (PT):??11.9 seconds??High (23:45) ?? LFT Albumin:??5 Gm/dL??High (23:45) Alkaline Phosphatase: 79 units/L (23:45) ALT (SGPT):??82 units/L??High (23:45) AST (SGOT):??87 units/L??High (23:45) Bilirubin, Total: 0.7 mg/dL (23:45) Protime (PT):??11.9 seconds??High (23:45) ?? Urinalysis?? No qualifying data available. ? Cardiology Labs High Sensitivity Troponin (HSTnT): 13 ng/L (10/29/22 23:45:00) ?? Blood Gases pH, Venous: 7.36 (05:30) ?? Uric/LDH?? No qualifying data available. ?? EKG study * Event Display: ECG 12-Lead Authored Date: Please click on pdf link to open report * Event Display: ECG 12-Lead Authored Date: Ventricular Rate: 58 BPM Atrial Rate: 58 BPM P-R Interval: 126 ms QRS Duration: 90 ms Q-T Interval: 508 ms QTC Calculation(Bazett): 498 ms P Whittington: 3 degrees R Whittington: 68 degrees T Whittington: 77 degrees Sinus bradycardia Nonspecific T wave abnormality Prolonged QT Abnormal ECG When compared with ECG of 29-OCT-2022 23:19, No significant change was found Confirmed by CAITLIN DE LUNA ([id number]) on 10/30/2022 10:34:28 AM [place]: CAITLIN DE LUNA * Event Display: ECG 12-Lead Authored Date: Please click on pdf link to open report * Event Display: ECG 12-Lead Authored Date: Ventricular Rate: 72 BPM Atrial Rate: 72 BPM P-R Interval: 124 ms QRS Duration: 90 ms Q-T Interval: 452 ms QTC Calculation(Bazett): 494 ms P Whittington: 29 degrees R Whittington: 66 degrees T Whittington: 69 degrees Normal sinus rhythm Prolonged QT Abnormal ECG When compared with ECG of 07-NOV-2021 16:28, No significant change was found Confirmed by KOFI GO ([id number]) on 10/31/2022 4:14:33 PM [place]: KOFI GO Note * Event Display: Cardiac Rhythm Strips Authored Date: Hospital Progress note * Ashley Gonzales LPN: PERFORM, SIGN, VERIFY Event Display: Progress Note Hospital Authored Date: Patient: GILBERTO ALVARENGA Age: 47 years Sex: Male : 1975 Associated Diagnoses: None Author: Ashley Gonzales LPN Findings Narrative/Incidental Assumed care of pt @ 0700. A&O x4. OOB independently w/BRT @ bedside r/t SI precaution. Tolerating diet with meds whole. Plan for pt to d/c to [facility] voluntarily pending transport and d/corders. No Si behavior portrayed for this RN. See CIS for further information.. * Mia RETANA, Gilbert: PERFORM Event Display: Progress Note Hospital Authored Date: [id number] Patient: ??GILBERTO ALVARENGA ? Age:??47 Years?Sex:??Male?:??1975?? Subjective Follow-up on Tylenol overdose, intentional, suicidal ideation ?? Patient seen and evaluated in a.m.?? reviewed lab, medication, vitals, consults CIWA score better???6, no tremors, not hallucinating ?? Patient medically cleared to go to inpatient psych???notified psych team,Rubi Rod MD--11/04 Cannot leave AGAINST MEDICAL ADVICE, RN fully updated With constant sales and service specialist ? Review of Systems Patient awake, alert, on constant sales and service specialist No nausea vomiting diarrhea?? no abdomen pain, tolerating p.o. well No chest pain no chest heaviness No dysuria?? repeatedly asking for??Ativan for anxiety Review of Systems Objective Measurements?? Height: 178 cm (11/05/22) Weight: 83.3 kg (11/05/22) Dry Weight: 76.9 kg (10/31/22) Body Mass Index: 24.27 kg/m2 (10/31/22) ? Vital Signs?? Temperature: 98.4 DegF (11/05/22 07:14:00) Temperature Route: Oral (11/05/22 07:14:00) Pulse Rate:??53 bpm??Low (11/05/22 07:14:00) Respiratory Rate: 18 br/min (11/05/22 12:49:00) Systolic Blood Pressure: 125 mm Hg (11/05/22 07:14:00) Diastolic Blood Pressure: 67 mm Hg (11/05/22 07:14:00) Blood pressure sites: Arm, left (11/05/22 07:14:00) Mean Arterial Pressure: 86 mm Hg (11/05/22 07:14:00) Pulse Pressure: 58 mm Hg (11/05/22 07:14:00) Oxygen Saturation: 99 % (11/05/22 07:14:00) Mode of Delivery (Oxygen): Room air (11/05/22 07:14:00) Early Warning Score: 0 (11/05/22 12:50:09) ? Intake/Output? 10/30 00:57 11/05 07:00 11/04 07:00 11/03 07:00 11/02 07:00 ?? 11/05 15:13 11/05 15:13 11/05 06:59 11/04 06:59 11/03 06:59 Intake ? 7947.0 ?600 ? 1200 ?840 ? 1200 Output ? 1500 ?0 ?0 ?0 ?0 Net Total ? 6447.0 ?600 ? 1200 ?840 ? 1200 ? Urine Count ? 16 ?2 ?5 ?4 ?5 ? Physical Exam ?General:??Alert, awake, not in?? acute cardiopulmonary distress.?? On constant sales and service specialist,??no tremors, no hallucination. ?Respiratory:??Clear to auscultation??. No wheezing, rales or rhonchi. ?Cardiovascular:??Heart sounds normal. Regular rate and rhythm, no murmurs ?Gastrointestinal:??Abdomen soft, non-tender, non-distended. Normal bowel sounds. ?Genitourinary:??No costovertebral angle tenderness. ?Neurologic:??Cranial nerves II-XII grossly intact. No focal neurological deficits.?Skin:??No rashes or lesions. No edema. ?Musculoskeletal:??No cyanosis or clubbing. No gross deformities. _ _ Home Medications Benzocaine Topical (Orajel 10% Gel)?1?applicator?Topically?Every 4 hours?as needed?Pain , Mild Folic Acid (folic acid 1 mg oral tablet)?1?Milligram?1?tablet?By Mouth?Daily?for 30?Days Gabapentin (gabapentin 300 mg oral capsule)?300?Milligram?1?capsule?By Mouth?3 times a day?for 30?Days Ibuprofen (ibuprofen 400 mg oral tablet)?400?Milligram?1?tablet?By Mouth?3 times a day?as needed?Pain , Mild Lidocaine Topical (Magic Mouth Wash)?15?Milliliter?Swish and Spit?3 times a day Methadone (methadone 10 mg/5 mL oral solution)?85?Milliliter?170?Milligram?By Mouth?Daily Multivitamin With Minerals (Multivit Therapeutic/Minerals Tablet)?1?tab(s)?By Mouth?Daily Nicotine?21?Milligram?Topically?Every 24 hours Pantoprazole (Protonix 40 mg oral delayed release tablet)?40?Milligram?By Mouth?Daily Polyethylene Glycol 3350 (MiraLax Powder)?1?pack/packet?17?gram?By Mouth?Daily?as needed?Constipation Pyridoxine (Pyridoxine Tablet)?50?Milligram?By Mouth?Daily Quetiapine (QUEtiapine 100 mg oral tablet)?100?Milligram?1?tablet?By Mouth?Daily at bedtime?as needed?for 30?Days?Anxiety Sertraline (sertraline 100 mg oral tablet)?1?tab(s)?100?Milligram?By Mouth?Daily?for 30?Days ? Inpatient Medications Medications (21) Active SCHEDULED: (9) Diazepam 5 mg Tablet (diazepam 5 mg oral tablet) ??5 mg, By Mouth, 3 times a day Folic Acid 1 mg Tablet (Folic Acid Tablet) ??1 mg, By Mouth, Daily Heparin 5000 units/mL Inj (1 mL) (Heparin Inj) ??5,000 units 1 mL, Subcutaneous Injection, 3 times a day Methadone 30mg/15mL UD Solution (Methadone Liquid) ??200 mg 100 mL, By Mouth, Daily Multivitamin Therapeutic / Minerals Tablet (Multivit Therapeutic/Minerals Tablet) ??1 tablet, By Mouth, Daily NaCl 0.9% Flush 3ml (NaCL 0.9% Flush) ??3 mL, IV Push, Every 8 hours Pantoprazole 40 mg EC Tablet (Protonix 40 mg oral delayed release tablet) ??40 mg, By Mouth, Daily Pyridoxine 50 mg Tablet (Pyridoxine Tablet) ??50 mg, By Mouth, Daily Thiamine 100 mg Tablet (thiamine 100 mg oral tablet) ??100 mg, By Mouth, 2 times a day CONTINUOUS: (0) PRN: (12) Clonidine 0.1 mg Tablet (cloNIDine 0.1 mg oral tablet) ??0.1 mg, By Mouth, Every 8 hours Dextromethorphan-Guaifenesin 20 mg-200 mg/10 mL Liqu UD (Robitussin DM Liquid) ??10 mL, By Mouth, Every 4 hours Lorazepam 1 mg Tablet (Ativan Tablet) ??1 mg, By Mouth, Every 2 hours Lorazepam 2 mg Tablet (Ativan Tablet) ??2 mg, By Mouth, Every 2 hours Lorazepam 2 mg Tablet (LORazepam 2 mg oral tablet) ??2 mg, By Mouth, Every hour Melatonin 3 mg Tablet (Melatonin Tablet) ??3 mg, By Mouth, Daily at bedtime nalOXONE ??400mcg/mL Inj (nalOXONE Inj) ??0.2 mg 0.5 mL, IV Push, Every 5 minutes OxyCODONE 5 mg IR Tablet (oxyCODONE 5 mg oral tablet) ??5 mg, By Mouth, Every 6 hours OxyCODONE 5 mg IR Tablet (oxyCODONE 5 mg oral tablet) ??5 mg, By Mouth, Once Polyethylene Glycol 17 Gm Powder (MiraLax Powder) ??17 Gm 1 pack/packet, By Mouth, Daily Senna 8.6 mg / Docusate 50 mg tablet (Docusate/Senna Tablet) ??1 tablet, By Mouth, 2 times a day Simethicone 80 mg Chewable Tablet (Simethicone Tablet) ??80 mg, Chew, 3 times a day ? Results Recent Labs CHEM GENERAL Alkaline Phosphatase 114 units/L ()?? 11/04/2022 10:05 AST (SGOT) 239 units/L (High)?? 11/04/2022 00:10 ALT (SGPT) 209 units/L (High)?? 11/04/2022 00:10 Bilirubin, Total 0.4 mg/dL ()?? 11/04/2022 10:05 Bilirubin, Direct 0.2 mg/dL ()?? 11/04/2022 10:05 Bilirubin, Indirect 0.2 mg/dL ()?? 11/04/2022 10:05 ?? COAG INR 1.0 ()?? 11/04/2022 00:10 Protime (PT) 11.0 seconds ()?? 11/04/2022 00:10 ?? HEME OTHER Hold Lavender Top SPECIMEN DISCARDED AFTER 24 HOURS. ()?? 11/04/2022 10:05 ?? VIROLOGY COVID-19 by RT-PCR NEGATIVE ()?? 11/04/2022 14:10 COVID-19 PCR Specimen Source NASAL ()?? 11/05/2022 05:40 COVID-19 PCR Result NEGATIVE ()?? 11/05/2022 05:40 ? Assessment/Plan ?? Gilberto is a 47-year-old male patient with history of depression, previous suicide attempts, alcohol use disorder, cocaine use disorder, opiate disorder, currently on methadone who presented to [facility] after ingesting initially reported dose of 80 tablets of 500 mg of Tylenol tablets but patient is unaware of how many he took.?? ER contacted poison control who recommended starting N-a cetylcysteine 21-hour protocol??with admission for monitoring.?? Patient remains afebrile and hemodynamically stable at this time, mentating appropriately. ??Patient completed 21??hours??Acetadote protocol followed by 16 hours??Acetadote?? Per recommendation by poison center.?? Acute kidney injury a nd lactic acid resolved??following IVF resuscitation. ?? Tylenol overdose, suicidal?? 10/29/22 Transaminitis Tylenol level???133, critical on admission reportedly intentionally ingesting around 80 tabs of 500mg tylenol discussed with poison control by ER team.?? Started on Acetadote 21-hour protocol, completed at 2330 on 10/30/22, Repeated ??16-hour Acetadote by??hospitalist service after poison center recommendation-completed??? 10/31 Suicide precautions Cannot leave AMA-constant sales and service specialist??-psych consultation Patient medically stable to go to inpatient psych, notified psych team?11/04 ? Moderate opioid use disorder on maintenance therapy Polysubstance abuse???cocaine us Alcohol use disorder Started on IV Ativan CIWA protocol Monitor for withdrawal using CIWA protocol Addiction team??on board- Folic acid, thiamine, multivitamins, pyridoxine?? Continue clonidine, Valium CIWA protocol much better ? Transaminitis:?multifactorial???alcohol, cocaine, hep C History of hepatitis C Patient has got medicine for hepatitis C at home but not taking AST 268, ALT 198?11/03 AST more than ALT, most likely alcohol induced Added acute hepatitis panel???pending Recent CT abdomen???no liver cirrhosis, only??fatty liver GI consult???no intervention ? 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 Discussed with psych team, verified??methadone dose by Brenton Rashid MD???195 mg-10/31 Repeat EKG???QTC 463-10/31 resumed??methadone dose???200 mg daily ??addiction team on board ? History of depression Has not been taking his psych meds for last 1 week Will defer psychiatric medication management to psychiatry ? DVT prophylaxis???Heparin subcu CODE STATUS???full code Diet???regular, paper tray, constant sales and service specialist ? Discharge plan???waiting fori npatient??psych placement, medically stable ?? * Ashley Gonzales LPN: PERFORM, SIGN, VERIFY Event Display: Progress Note Hospital Authored Date: Patient: GILBERTO ALVARENGA Age: 47 years Sex: Male : 1975 Associated Diagnoses: None Author: Ashley Gonzales LPN Findings Evaluation Pt A/OX4, c/o 10/10 pain in right shoulder, prn oxy admin. X2 w/ good effect, pt score 0 on CIWA, no visible tremors, pt cleared by MD for transfer to [facility] for further psych eval, waiting information systems project manager back from facility for further info, pt remains 1:1 for SI, good PO intake, ambulating ind. will continue to monitor.. CT Abdomen and Pelvis WO contrast * [facility] , CIS S: TRANSCRIBE Monika RETANA, Brenton Parekh: VERIFY Ned Sherman DO: SIGN Event Display: Result: Authored Date: CT Abdomen and Pelvis W/O Contrast REASON: Pain; Clinical Question(s): Pancreatitis TECHNIQUE: Spiral CT through the abdomen and pelvis without IV contrast formatted in 3 planes. Thisstudy was performed without oral contrast. Weight- based protocol using automatic tube modulation was used to optimize exposure parameters. CTDIvol Body: 14.00 mGy, DLP Body: 799 mGy*cm. COMPARISON: CT abdomen pelvis 11/05/2021 FINDINGS: Dinkey Brakeman View Findings, Lines and Tubes: None. Visualized Chest: Mild bronchial wall thickening and mucous in the right lower lobe with faint groundglass at the right lung base. No pleural effusion. Diaphragm: Normal. Liver: Hepatic steatosis Gallbladder: No CT evidence of gallbladder pathology. Bile ducts: Unchanged mildly dilated common duct measuring 1.2 cm. Mild intrahepatic biliary ductaldilatation is unchanged Spleen: Normal. Pancreas: Normal. Adrenal glands: Normal. Kidneys and ureters: Mild bilateral pelvicaliectasis likely due to distended urinary bladder Bladder: Distended Stomach, small bowel, and large bowel: Unremarkable stomach. Small bowel loops are nondilated, no evidence of obstruction. Mildly stool-filled colon. Appendix: Sutures at the cecal base consistent with appendectomy. Peritoneum and retroperitoneum: No ascites or pneumoperitoneum. No omental or mesenteric lesions. Lymph nodes: No enlarged lymph nodes. Subcentimeter gastrohepatic, periportal and periaortic lymph nodes nodes are unchanged. Blood vessels: Mild vascular calcifications but no aneurysm. Abdominal and pelvic wall: Unremarkable. Bones: No acute abnormality. IMPRESSION: No acute abnormality in the abdomen and pelvis Unchanged mild biliary ductal dilatation. Mucus plug within the right lower lobe bronchi. Mild groundglass in the right lower lobe may be secondary to atelectasis. Hepatic steatosis. Other stable and incidental findings outlined above I have personally reviewed the images and I agree with this report. WSN: [id number] Ordering Physician: Lore Croft Dictated By: Ned Sherman DO Dictated Date/Time: 10/30/22 7:45 am Reviewed By: Brenton Frank MD Signed By: Brenton Frank MD Signed Date/Time: 10/30/22 7:50 am Transcribed By: ANDREAS Transcribed Date/Time: 10/30/22 7:18 am Patient Care team information Care Team Personnel Name: Jen Swan RN Position: S RN Member Role: Primary Care Nurse Name: Almita Hanson RN Position: S RN Member Role: Primary Care Nurse Name: Mio Urbina RN Position: S RN Member Role: Primary Care Nurse Name: Patricia Peoples RN Position: [facility] RN Member Role: Primary Care Nurse Name: Chantelle Graf Position: [facility] RN Member Role: Primary Care Nurse Name: Shell Garcia Position: [facility] RN Member Role: Primary Care Nurse Name: Katia Cain RN Position: [facility] RN Member Role: Primary Care Nurse Name: Julissa Patton RN Position: [facility] RN Member Role: Primary Care Nurse Name: Randi Lyon RN Position: [facility] RN Member Role: Primary Care Nurse Name: Pastora Kerns RN Position: [facility] RN Supv Member Role: Primary Care Nurse Name: Jennifer Gleason RN Position: [facility] RN Member Role: Primary Care Nurse Name: Catrachita Seaman RN Position: [facility] RN Member Role: Primary Care Nurse Name: Not on Staff, PCP Position: [facility] Physician (General Medicine) Member Role: PCP Name: Kaylan Schofield RN Position: [facility] RN Member Role: Primary Care Nurse Name: Gregoria Rubio RN Position: [facility] RN Member Role: Primary Care Nurse Name: Manda Beasley RN Position: [facility] RN Member Role: Primary Care Nurse Name: Meseret Bashir RN Position: [facility] Hospital [employer] Lieutenant Member Role: Primary Care Nurse Name: Cheyenne Gruber RN Position: [facility] RN Member Role: Primary Care Nurse Name: Leonora Ervin RN Position: [facility] RN Member Role: Primary Care Nurse Name: Kina Chapman RN Position: [facility] RN Member Role: Primary Care Nurse Name: Cinthia Brody RN Position: [facility] RN Member Role: Primary Care Nurse Name: Karissa Estevez Position: [facility] RN Member Role: Primary Care Nurse Name: Johnny VILLAR Attending Position: [facility] ED Medicine MD Name: Marleen Krishnan RN Position: [facility] ED RN W/OE and Tasks Member Role: Patient Care Provider Name: Alka Oneill Position: [facility] ED TA [facility] Member Role: Document Control Coordinator Name: Ashley Wiley Position: [facility] ED RN W/OE and Tasks Member Role: Patient Care Provider Name: Joanne Almeida Position: [facility] ED OA Charge Member Role: ED Associate Care Team Related Persons Name: GIBSON WEATHERS Address: home [address] [place] [address] Name: GIBSON SWEENEY Address: home [address] [place] [address]
--- OUTSIDE RECORDS SUMMARY | 2023-03-29 15:09 | XMS_ITS | Continuity of Care Document ---
Author Name Unknown Organization [facility] ter Address [address] [place] [id number]- Care Team Providers Care Design Intern Name Role Phone Not on Staff, PCP Primary Care Physician Unavail able Encounter [facility] [place] Date(s): 01/28/23 - 01/28/[address] [address]- Discharge Disposition: A-D/C Walkout Attending Physician: Not on Staff, Attending MD Admitting Physician: Not on Staff, Admitting MD Referring Physician: Not on Staff, Referring MD Allergies, Adverse Reactions, Alerts Substance Reaction Severity Status morphine Active Vicodin Active TEGretol Active Immunizations Given and Recorded Vaccine Date Status Refusal Reason SARS-CoV-2 mRNA ([id number]) vax 12/13/22 Recorded SARS-CoV-2 mRNA ([id number]) vax 10/23/22 Recorded tetanus/diphtheria/pertussis, acel(Tdap) 12/28/18 Given Not Given Vaccine Date Status Refusal Reason influenza virus vaccine, inactivated 11/01/22 Not Given Patient Refuses influenza virus vaccine, inactivated 11/02/21 Not Given Permanently Refused influenza virus vaccine, inactivated 07/16/18 Not Given Patient Refuses pneumococcal 23-valent vaccine 07/16/18 Not Given Patient Refuses Medications acamprosate 333 mg oral delayed release tablet 2 tablet = 666 mg, By Mouth, 3 times a day, # 180 tablet, 0 Refills, Maintenance, 01/02/23 13:34:00EST, EC Tablet, [facility], Partial fill upon patient request if the prescription is for a schedule II opioid drug., 180, cm, 01/02/23 11... Start Date: 01/02/23 Status: Ordered acetaminophen 325 mg oral tablet 975 mg, 3, tablet, By Mouth, Every 8 hours, not to exceed 4000 mg/day, # 90 tablet, Refills 0, Tot.Refills 0, Acute 02/03/23 9:00:00 EDT, 01/02/23 13:03:00 EST, Route to Pharmacy Electronically, [facility], Partial fill upon patient req... Start Date: 01/02/23 Stop Date: 02/03/23 Status: Ordered gabapentin 100 mg oral capsule 300 mg, 3, capsule, By Mouth, 3 times a day, # 270 capsule, Refills 0, Tot. Refills 0, Maintenance,01/02/23 12:59:00 EST, Route to Pharmacy Electronically, [facility], Partial fill upon patient request if the prescription is for a sched... Start Date: 01/02/23 Status: Ordered lidocaine 5% topical film 1 patch, Topically, Daily, # 60 patch, 0 Refills, Acute 03/04/23 9:00:00 EDT, 01/02/23 13:00:00 EST, Patch, [facility], Partial fill upon patient request if the prescription is for a schedule II opioid drug., 1 patch Topically Daily, 180... Start Date: 01/02/23 Stop Date: 03/04/23 Status: Ordered methadone 10 mg oral tablet = 200 mg, By Mouth, Daily in AM, (CALLED & CONFIRMED DOSE LAST GIVEN 12/29/[address] [facility] [phone] 12/30/22), 0 Refills, Maintenance, 11/13/22 10:40:00 EST, Tablet, Partial fill up; Start Date: 11/13/22 Status: Ordered nicotine 14 mg/24 hr transdermal film, extended release See Instructions, Apply one patch daily, # 60 patch, 0 Refills, Acute 03/04/23 9:00:00 EDT, 01/02/23 13:01:00 EST, [facility], Partial fill upon patient request if the prescription is for a schedule II opioid drug., Apply one patch daily... Start Date: 01/02/23 Stop Date: 03/04/23 Status: Ordered Orajel 10% Gel 1, applicator, Topically, Every 4 hours, PRN, Refills 0, Maintenance, Pain , Mild, 11/08/21 11:24:00 EST, Gel, Partial fill upon patient request if the prescription is for a schedule II opioid drug. Start Date: 11/08/21 Status: Ordered Physical Therapy Evaluation Physical Therapy Evaluation, See Instructions, # 1 each, Refills 0, Tot. Refills 0, Maintenance, -,01/02/23 13:50:00 EST, Supply Start Date: 01/02/23 Status: Ordered Protonix 40 mg oral delayed release tablet 1 tablet = 40 mg, By Mouth, Daily, last FILLED 03/21/22 30 for 30, 0 Refills, Maintenance, 11/08/21 11:24:00 EST, EC Tablet Start Date: 11/08/21 Status: Ordered thiamine 100 mg oral tablet 50 mg, 0.5, tablet, By Mouth, Daily, # 45 tablet, Refills 0, Tot. Refills 0, Acute 02/02/23 9:00:00EDT, 01/02/23 13:02:00 EST, Route to Pharmacy Electronically, [facility], Partial fill upon patient request if the prescription is for a... Start Date: 01/02/23 Stop Date: 02/02/23 Status: Ordered Problem List Condition Confirmation Course Effective Dates Status H ealth Status Informant Alcohol abuse Confirmed Active Coagulopathy Confirmed Active Cerebral edema Confirmed Active Transaminitis Confirmed Active GI bleed Confirmed Active Hepatic encephalopathy Confirmed Active Hypertension Confirmed Active OSVALDO (acute kidney injury) Confirmed Active Opiate abuse, continuous Confirmed Active Pneumonia Confirmed Active Vital Signs Most recent to oldest [Reference Range]: 1 2 Weight 80 kg (01/28/23 8:48 PM) Oxygen Saturation [94-100 %] 98 % (01/28/23 7:48 PM) 99 % (01/28/23 7:39 PM) Pulse Rate [55-90 bpm] 98 bpm *H* (01/28/23 7:48 PM) 90 bpm (01/28/23 7:39 PM) Blood Pressure [90-138/55-84 mm Hg] 142/ 97mm Hg *H* (01/28/23 7:48 PM) 125/63mm Hg (01/28/23 7:39 PM) Temperature [96.8-100.4 DegF] 98.5 DegF (01/28/23 7:48 PM) Mode of Delivery (Oxygen) Room air (01/28/23 7:48 PM) Room air (01/28/23 7:39 PM) Blood pressure sites Arm, right (01/28/23 7:48 PM) Temperature Route Oral (01/28/23 7:48 PM) Weight Obtained Via Patient/family state d (01/28/23 8:48 PM) Social History Social History Type Response Tobacco Use: 4 or less cigar ettes(less than 1/4 pack)/day in last 30 days. Interested in cessation: No. Yes Sex Patient Care team information Care Team Personnel Name: Jen Swan RN Position: [facility] RN Member Role: Primary Care Nurse Name: Almita Hanson RN Position: [facility] RN Member Role: Primary Care Nurse Name: Mio Urbina RN Position: [facility] RN Member Role: Primary Care Nurse Name: Patricia Peoples RN Position: [facility] RN Member Role: Primary Care Nurse Name: Tarun Solis RN Position: [facility] RN Member Role: Primary Care Nurse Name: Chantelle Graf Position: [facility] RN Member Role: Primary Care Nurse Name: Katia Cain RN Position: [facility] RN Member Role: Primary Care Nurse Name: Julissa Patton RN Position: [facility] RN Member Role: Primary Care Nurse Name: Randi Lyon RN Position: [facility] RN Member Role: Primary Care Nurse Name: Pastora Kerns RN Position: [facility] RN Jessica Member Role: Primary Care Nurse Name: Jennifer Gleason RN Position: [facility] RN Member Role: Primary Care Nurse Name: Catrachita Seaman RN Position: [facility] RN Member Role: Primary Care Nurse Name: Not on Staff, PCP Position: [facility] Physician (General Medicine) Member Role: PCP Name: Kaylan Schofield RN Position: [facility] RN Member Role: Primary Care Nurse Name: Gregoria Rubio RN Position: [facility] RN Member Role: Primary Care Nurse Name: Manda Beasley RN Position: [facility] RN Member Role: Primary Care Nurse Name: Meseret Bashir RN Position: [facility] Hospital Outpatient Clerk Member Role: Primary Care Nurse Name: Cheyenne Gruber RN Position: [facility] RN Member Role: Primary Care Nurse Name: Kajal Dunn RN Position: [facility] RN Member Role: Primary Care Nurse Name: Kina Chapman RN Position: S RN Member Role: Primary Care Nurse Name: Cinthia Brody RN Position: S RN Member Role: Primary Care Nurse Name: Karissa Estevez RN Position: S RN Member Role: Primary Care Nurse Care Team Related Persons Name: GIBSON WEATHERS Address: home [address] [place] [address] Name: GIBSON SWEENEY Address: home [address] [place] [address]
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
--- OUTSIDE RECORDS SUMMARY | 2023-03-29 15:10 | XMS_ITS | Continuity of Care Document ---
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 seen and evaluated this patient.?? I have discussed the case and its management with the resident and agree with the findings and plan as documented in the resident???s note. MR Brain WO contrast * [facility] , CIS S: TRANSCRIMERCEDES Montes De Oca MD, Shan: VERIFY Event Display: Result: Authored Date: MRI Brain W/O Contrast INDICATION: Unresponsive. Lung Subarachnoid Hemorrhage; history of depression and polysubstance abuse. TECHNIQUE: MRI of the brain was performed without contrast utilizing sagittal T1, axial T2, axial FLAIR, axial SWAN, and axial DWI sequences. COMPARISON: CT of head on 12/30/2022 and prior MRI brain of 07/09/2020. FINDINGS: The current study is slightly limited by motion artifacts. BRAIN and EXTRA-AXIAL SPACES: The ventricles, cistern and sulci are within normal limits. No hydrocephalus is seen. There is no intracranial hemorrhage, tumor or acute infarct. Minimal bilateral white matter disease is noted which is nonspecific and could be due to old ischemic changes. Please correlate clinically. The symmetric abnormal signals within bilateral cerebral hemispheres and deep graymatters seen on prior study had resolved during the interval. EXTRACRANIAL SOFT TISSUES: Orbits are unremarkable. There is a small mucus retention cyst within the left-sided sphenoid sinus. Diffuse mucosal thickening is seen within bilateral maxillary sinuses. The left mastoid air cells have minimal mucosal thickening. BONES: Marrow signal is preserved. IMPRESSION: Slightly limited study due to motion artifacts. No acute intracranial pathology. WSN: [id number] Ordering Physician: Kenya Patrick Dictated By: Chuy Montes De Oca MD Dictated Date/Time: 01/01/23 8:17 am Reviewed By: Chuy Montes De Oca MD Signed By: Chuy Montes De Oca MD Signed Date/Time: 01/01/23 8:17 am Transcribed By: ANDREAS Transcribed Date/Time: 01/01/23 8:16 am MR Thoracic spine WO and W contrast IV * [facility] , CIS S: TRANSCRIBE Claudette Langston MD M: VERIFY Event Display: Result: Authored Date: [id number] MRI Cervical Spine W/O Contrast, MRI Thoracic Spine W+W/O Contrast Reason: Other:; Epidural abscess; Clinical Question(s): Epidural Empyema; Special Instructions: obtain within six hours; Order Comment: Please see Reference Text for complete list of contraindications Epidural Empyema Per technologist interview: IVDU patient with severe neck and back pain, weakness in legs, frequentfalls. TECHNIQUE: MRI of the cervical spine was performed without intravenous contrast utilizing sagittal T1, sagittal T2, sagittal STIR, axial T1, and axial fat- saturated T2-weighted sequences. In addition, MRI of the thoracic spine was performed with and without intravenous contrast utilizing sagittal T1, sagittal T2, sagittal STIR, axial T1, and fat-saturated axial T2-weighted sequences, and post-contrast fat-saturated axial T1-weighted sequences. 15 mL of Clariscan was administered intravenously. The patient was unable to complete the entire planned scan, with no acquisition of postcontrast imaging in the cervical spine, and no acquisition of sagittal postcontrast imaging in the thoracic spine. COMPARISON: CT cervical spine, 12/30/2022. FINDINGS: CERVICAL SPINE: ALIGNMENT, VERTEBRAE, MARROW, AND DISCS: Alignment is normal. Vertebral body heights are preserved.No marrow edema or other suspicious marrow signal abnormality is seen. Intervertebral discs are desiccated, with moderate to severe loss of disc space at C5-6 and scattered mild loss of disc height at the remaining levels. No fluid signal is seen within the disc spaces. POSTERIOR FOSSA AND CORD: Visualized posterior fossa is normal. The cervical cord is normal in signal and caliber. No epidural nodularity or fluid collection is seen. PARASPINAL TISSUES: Soft tissues of the neck are unremarkable. Major cervical flow voids are present. DETAILED FINDINGS BY LEVEL: C2-C3: No significant disc herniation, central stenosis, or neural foraminal narrowing . C3-C4: Broad-based disc osteophyte complex with right greater than left uncovertebral spurring and mild facet hypertrophy. Mild central stenosis. Severe right and minimal left neural foraminal narrowing. C4-C5: Mild broad-based disc osteophyte complex with central protrusion. Mild central stenosis. Moderate right and no significant left neural foraminal narrowing. C5-C6: Broad-based disc osteophyte complex with bilateral uncovertebral and facet hypertrophy. Mild/moderate central stenosis. Moderate bilateral neural foraminal narrowing. C6-C7: Broad-based disc osteophyte complex with left paracentral protrusion. Mild central stenosis,greater on the left. Moderate right and mild left neural foraminal narrowing. C7-T1: No significant disc herniation, central stenosis, or neural foraminal narrowing. THORACIC SPINE: ALIGNMENT, VERTEBRAE, MARROW, AND DISCS: Alignment is normal. Vertebral body heights are preserved.Minimal Modic 1 endplate changes are present anteriorly at T8. Marrow signal is otherwise mildly heterogeneous with no suspicious signal abnormality. Intervertebral discs are maintained. CORD: The thoracic cord is normal in signal and contour. There is a normal level of termination of the conus at L1-2. There is no abnormal intradural or epidural enhancement. PARASPINAL TISSUES: Visualized paraspinal soft tissues are unremarkable. FINDINGS BY LEVEL: Few minimal posterior disc bulges are present, including left paracentral protrusion at T4-5, rightprecentral protrusion at T5-6, and mild broad-based bulge at T6-7 and T7-8. However, no significantcentral stenosis or neural foraminal narrowing is seen at any level in the thoracic spine. IMPRESSION: 1. No evidence of spinal infection or other acute abnormality of the cervical or thoracic spine. Note that examination was terminated early as the patient could not tolerate further imaging, with no post contrast imaging in the cervical spine and only axial postcontrast imaging in the thoracic spine. 2. Multilevel degenerative changes of the spine as detailed above. Central stenosis is greatest at C5-6 [mild to moderate). Multilevel neural foraminal narrowing is also present in the cervical spine, most severe on the right at C3-4. WSN: [id number] Ordering Physician: Job Gould Dictated By: Claudette Langston MD Dictated Date/Time: 12/30/22 12:30 p Reviewed By: Claudette Langston MD Signed By: Claudette Langston MD Signed Date/Time: 12/30/22 12:30 pm Transcribed By: CSB Transcribed Date/Time: 12/30/22 11:39 am MR Cervical spine WO contrast * [facility] , CIS S: TRANSCRIBE Claudette Langston MD: VERIFY Event Display: Result: Authored Date: [id number] MRI Cervical Spine W/O Contrast, MRI Thoracic Spine W+W/O Contrast Reason: Other:; Epidural abscess; Clinical Question(s): Epidural Empyema; Special Instructions: obtain within six hours; Order Comment: Please see Reference Text for complete list of contraindications Epidural Empyema Per technologist interview: IVDU patient with severe neck and back pain, weakness in legs, frequentfalls. TECHNIQUE: MRI of the cervical spine was performed without intravenous contrast utilizing sagittal T1, sagittal T2, sagittal STIR, axial T1, and axial fat- saturated T2-weighted sequences. In addition, MRI of the thoracic spine was performed with and without intravenous contrast utilizing sagittal T1, sagittal T2, sagittal STIR, axial T1, and fat-saturated axial T2-weighted sequences, and post-contrast fat-saturated axial T1-weighted sequences. 15 mL of Clariscan was administered intravenously. The patient was unable to complete the entire planned scan, with no acquisition of postcontrast imaging in the cervical spine, and no acquisition of sagittal postcontrast imaging in the thoracic spine. COMPARISON: CT cervical spine, 12/30/2022. FINDINGS: CERVICAL SPINE: ALIGNMENT, VERTEBRAE, MARROW, AND DISCS: Alignment is normal. Vertebral body heights are preserved.No marrow edema or other suspicious marrow signal abnormality is seen. Intervertebral discs are desiccated, with moderate to severe loss of disc space at C5-6 and scattered mild loss of disc height at the remaining levels. No fluid signal is seen within the disc spaces. POSTERIOR FOSSA AND CORD: Visualized posterior fossa is normal. The cervical cord is normal in signal and caliber. No epidural nodularity or fluid collection is seen. PARASPINAL TISSUES: Soft tissues of the neck are unremarkable. Major cervical flow voids are present. DETAILED FINDINGS BY LEVEL: C2-C3: No significant disc herniation, central stenosis, or neural foraminal narrowing . C3-C4: Broad-based disc osteophyte complex with right greater than left uncovertebral spurring and mild facet hypertrophy. Mild central stenosis. Severe right and minimal left neural foraminal narrowing. C4-C5: Mild broad-based disc osteophyte complex with central protrusion. Mild central stenosis. Moderate right and no significant left neural foraminal narrowing. C5-C6: Broad-based disc osteophyte complex with bilateral uncovertebral and facet hypertrophy. Mild/moderate central stenosis. Moderate bilateral neural foraminal narrowing. C6-C7: Broad-based disc osteophyte complex with left paracentral protrusion. Mild central stenosis,greater on the left. Moderate right and mild left neural foraminal narrowing. C7-T1: No significant disc herniation, central stenosis, or neural foraminal narrowing. THORACIC SPINE: ALIGNMENT, VERTEBRAE, MARROW, AND DISCS: Alignment is normal. Vertebral body heights are preserved.Minimal Modic 1 endplate changes are present anteriorly at T8. Marrow signal is otherwise mildly heterogeneous with no suspicious signal abnormality. Intervertebral discs are maintained. CORD: The thoracic cord is normal in signal and contour. There is a normal level of termination of the conus at L1-2. There is no abnormal intradural or epidural enhancement. PARASPINAL TISSUES: Visualized paraspinal soft tissues are unremarkable. FINDINGS BY LEVEL: Few minimal posterior disc bulges are present, including left paracentral protrusion at T4-5, rightprecentral protrusion at T5-6, and mild broad-based bulge at T6-7 and T7-8. However, no significantcentral stenosis or neural foraminal narrowing is seen at any level in the thoracic spine. IMPRESSION: 1. No evidence of spinal infection or other acute abnormality of the cervical or thoracic spine. Note that examination was terminated early as the patient could not tolerate further imaging, with no post contrast imaging in the cervical spine and only axial postcontrast imaging in the thoracic spine. 2. Multilevel degenerative changes of the spine as detailed above. Central stenosis is greatest at C5-6 [mild to moderate). Multilevel neural foraminal narrowing is also present in the cervical spine, most severe on the right at C3-4. WSN: [id number] Ordering Physician: Job Gould Dictated By: Claudette Langston MD Dictated Date/Time: 12/30/22 12:30 p Reviewed By: Claudette Langston MD Signed By: Claudette Langston MD Signed Date/Time: 12/30/22 12:30 pm Transcribed By: ANDREAS Transcribed Date/Time: 12/30/22 11:[address] Cervical spine WO contrast * [facility] , CIS S: TRANSCRIBE Raine Blanc MD O: VERIFY Sagar Lopez DO: SIGN Event Display: Result: Authored Date: [id number] CT Head/Brain W/O Contrast, CT Cervical Spine W/O Contrast INDICATION: Hx of Present Illness: pt c o bilateral foot pain and head pain x 4 weeks, neck pain x 3-5 days bilateral foot pain x 3 weeks, pt stated that he fell several times walking here, ? LOC ? head strike,; Reason: Trauma; Clinical Question(s): Hematoma; Order Comment: TECHNIQUE: Noncontrast head CT using axial technique was reconstructed in axial and coronal planes.Noncontrast spiral CT through the cervical spine was formatted in 3 planes. Automatic tube modulation was used for the cervical spine and iterative dose reconstruction was used for both the head and cervical spine to optimize scan parameters and image quality. CTDIvol Body: 13.20 mGy, DLP Body: 365 mGy*cm. CTDIvol Head: 40.50 mGy, DLP Head: 839 mGy*cm. 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 BRAIN AND EXTRA-AXIAL SPACES: No parenchymal hemorrhage, midline shift, or mass effect. Chavez-white matter differentiation is wellpreserved. No acute infarct. Negative insular ribbon and hyperdense vessel signs. Mild prominence of the ventricles and sulci consistent with parenchymal volume loss. Mild low-density white matter changes. No subarachnoid hemorrhage. No subdural or epidural collection. CALVARIUM, SKULL BASE, AND SOFT TISSUES: No fractures or suspicious bony lesions. Evidence of prior sinus surgery. Near complete opacification of bilateral maxillary sinuses. Mild mucosal thickening of the left sphenoid sinus. The remaining paranasal sinuses and mastoid air cells are clear. Visualized orbits and globes are intact. The extracranial soft tissues are unremarkable. CERVICAL SPINE: No fracture. No acute osseous abnormalities. Normal alignment. No locked or perched facet. Mild multilevel degenerative disc space narrowing andend plate irregularity, greatest at C5-C6. OTHER BONES: No acute abnormality. CERVICAL SOFT TISSUES AND LUNG APICES: Normal soft tissues. Visualized lung apices are clear. IMPRESSION: No acute abnormality of the head or cervical spine. Sinus disease. I have personally reviewed the images and I agree with this report. WSN: [id number] Ordering Physician: Job Gould Dictated By: Sagar Lopez DO Dictated Date/Time: 12/30/22 4:58 am Reviewed By: Raine Blanc MD Signed By: Raine Blanc MD Signed Date/Time: 12/30/22 5:03 am Transcribed By: ANDREAS Transcribed Date/Time: 12/30/22 4:[address] Head WO contrast * [facility] , CIS S: TRANSCRIBE Raine Blanc MD O: VERIFY Sagar Lopez DO: SIGN Event Display: Result: Authored Date: [id number] CT Head/Brain W/O Contrast, CT Cervical Spine W/O Contrast INDICATION: Hx of Present Illness: pt c o bilateral foot pain and head pain x 4 weeks, neck pain x 3-5 days bilateral foot pain x 3 weeks, pt stated that he fell several times walking here, ? LOC ? head strike,; Reason: Trauma; Clinical Question(s): Hematoma; Order Comment: TECHNIQUE: Noncontrast head CT using axial technique was reconstructed in axial and coronal planes.Noncontrast spiral CT through the cervical spine was formatted in 3 planes. Automatic tube modulation was used for the cervical spine and iterative dose reconstruction was used for both the head and cervical spine to optimize scan parameters and image quality. CTDIvol Body: 13.20 mGy, DLP Body: 365 mGy*cm. CTDIvol Head: 40.50 mGy, DLP Head: 839 mGy*cm. 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 BRAIN AND EXTRA-AXIAL SPACES: No parenchymal hemorrhage, midline shift, or mass effect. Chavez-white matter differentiation is wellpreserved. No acute infarct. Negative insular ribbon and hyperdense vessel signs. Mild prominence of the ventricles and sulci consistent with parenchymal volume loss. Mild low-density white matter changes. No subarachnoid hemorrhage. No subdural or epidural collection. CALVARIUM, SKULL BASE, AND SOFT TISSUES: No fractures or suspicious bony lesions. Evidence of prior sinus surgery. Near complete opacification of bilateral maxillary sinuses. Mild mucosal thickening of the left sphenoid sinus. The remaining paranasal sinuses and mastoid air cells are clear. Visualized orbits and globes are intact. The extracranial soft tissues are unremarkable. CERVICAL SPINE: No fracture. No acute osseous abnormalities. Normal alignment. No locked or perched facet. Mild multilevel degenerative disc space narrowing andend plate irregularity, greatest at C5-C6. OTHER BONES: No acute abnormality. CERVICAL SOFT TISSUES AND LUNG APICES: Normal soft tissues. Visualized lung apices are clear. IMPRESSION: No acute abnormality of the head or cervical spine. Sinus disease. I have personally reviewed the images and I agree with this report. WSN: [id number] Ordering Physician: Job Gould Dictated By: Sagar Lopez DO Dictated Date/Time: 12/30/22 4:58 am Reviewed By: Raine Blanc MD Signed By: Raine Blanc MD Signed Date/Time: 12/30/22 5:03 am Transcribed By: ANDREAS Transcribed Date/Time: 12/30/22 4:06 am Patient Care team information Care Team Personnel Name: Jen Swan RN Position: S RN Member Role: Primary Care Nurse Name: Almita Hanson RN Position: S RN Member Role: Primary Care Nurse Name: Mio Urbina RN Position: S RN Member Role: Primary Care Nurse Name: Patricia Peoples RN Position: S RN Member Role: Primary Care Nurse Name: Tarun Solis RN Position: S RN Member Role: Primary Care Nurse Name: Chantelle Graf Position: S RN Member Role: Primary Care Nurse Name: Katia Cain RN Position: [facility] RN Member Role: Primary Care Nurse Name: Julissa Patton RN Position: [facility] RN Member Role: Primary Care Nurse Name: Randi Lyon RN Position: [facility] RN Member Role: Primary Care Nurse Name: Pastora Kerns RN Position: [facility] RN Supv Member Role: Primary Care Nurse Name: Jennifer Gleason RN Position: [facility] RN Member Role: Primary Care Nurse Name: Catrachita Seaman RN Position: [facility] RN Member Role: Primary Care Nurse Name: Not on Staff, PCP Position: [facility] Physician (General Medicine) Member Role: PCP Name: Kaylan Schofield RN Position: [facility] RN Member Role: Primary Care Nurse Name: Gregoria Rubio RN Position: [facility] RN Member Role: Primary Care Nurse Name: Manda Beasley RN Position: [facility] RN Member Role: Primary Care Nurse Name: Meseret Bashir RN Position: [facility] Hospital Transformer Mechanic Member Role: Primary Care Nurse Name: Cheyenne Gruber RN Position: [facility] RN Member Role: Primary Care Nurse Name: Kajal Dunn RN Position: [facility] RN Member Role: Primary Care Nurse Name: Kina Chapman RN Position: [facility] RN Member Role: Primary Care Nurse Name: Cinthia Brody RN Position: [facility] RN Member Role: Primary Care Nurse Name: Johnny VILLAR Attending Position: [facility] ED Medicine MD Name: Naheed Romano LPN Position: [facility] ED RN W/OE and Tasks Member Role: Patient Care Provider Name: Joanne Almeida Position: [facility] ED OA Charge Member Role: ED Associate Name: Corrine Herron Position: [facility] ED TA [facility] Member Role: Drafter Electromechanical Care Team Related Persons Name: GIBSON WEATHERS Address: home [address] [place] [address] Name: GIBSON SWEENEY Address: home [address] [place] [address]
[2023-03-29 15:26] LABS: Alanine Aminotransferase 39 U/L (0-40); Albumin Level 4.8 g/dL (3.5-5.0); Alkaline Phosphatase 78 U/L (39-117); Anion Gap 17 (12-20); Aspartate Amino Transferase 47 U/L (5-37); Bilirubin Total 1.6 mg/dL (0.0-1.0); Blood Urea Nitrogen 23 mg/dL (9-16); Calcium 9.9 mg/dL (8.4-10.2); Carbon Dioxide 23 mmol/L (22-29); Chloride 103 mmol/L (96-108); Creatinine Clr Calc Pharmacy 59.1; Estimated Glomerular Filt Rate 48; Glucose Random 152 mg/dL (60-115); Magnesium 2.3 mg/dL (1.6-2.6); Potassium 3.6 mmol/L (3.3-5.1); Sodium 139 mmol/L (135-145); Total Protein 8.5 g/dL (6.5-8.0)
== END 2023-03-29 17:56 | disposition home or self-care (01) ==
PROVIDERS: Physician Assistant Medical; Emergency Provider Emergency Medicine
DX: J40 Bronchitis, not specified as acute or chronic (principal); R21 Rash and other nonspecific skin eruption; F11.20 Opioid dependence, uncomplicated; F10.20 Alcohol dependence, uncomplicated; F17.210 Nicotine dependence, cigarettes, uncomplicated
CPT/HCPCS: 36415; 71046; 80053; 83735; 85025; 99282; 99283; 99284